=== PATIENT | male | born 1990 ===

== ENCOUNTER 2020-07-31 07:47 | Outpatient (REF) | payer BC, SELFPAY | END 2020-07-31 07:48 | disposition home or self-care (01) | LOC: HO.LAB 07:47 | PROVIDERS: Visit Provider Internal Medicine | DX: Z20.828 Contact with and (suspected) exposure to other viral communicable diseases (principal) | CPT/HCPCS: C9803; U0003 ==

== ENCOUNTER 2021-01-14 12:00 | Outpatient (RCR) | payer BC, SELFPAY | END 2021-01-24 12:54 | disposition other institution (70) | LOC: HO.PT 12:00 | PROVIDERS: PCP Nurse Practitioner Primary Care; Visit Provider Nurse Practitioner Primary Care | DX: M54.41 Lumbago with sciatica, right side (principal) | CPT/HCPCS: 97110; 97112; 97162 ==

== ENCOUNTER → 2023-06-27 08:25 | Outpatient (BNVA) | payer MEDICAID, SELFPAY | PROVIDERS: PCP Nurse Practitioner Primary Care; Visit Provider Physician Assistant Surgical ==

== ENCOUNTER → 2023-07-23 08:00 | Outpatient (REF) | payer OTHER, SELFPAY ==
--- NOTE | 2023-07-23 08:04 | CA_ITS ---
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 The calculated ejection fraction is 53% by biplane method. - There is severely increased left ventricular wall thickness. - Possible mild pulmonic stenosis based on gradients, but could also be related to increased stroke volume. Findings Procedure Information Contrast agent, definity, is being given per protocol without apparent complications. Left Ventricle Normal left ventricular cavity size. There is severely increased left ventricular wall thickness. The left ventricular systolic function is low normal. The calculated ejection fraction is 53% by biplane method. There is no evidence of regional wall motion abnormalities. Diastolic function is normal for age. Right Ventricle Normal right ventricular cavity size and systolic function. Atria The left atrium is mildly dilated. The right atrium is normal in size. Aortic Valve There is a normal trileaflet aortic valve. There is no aortic valve stenosis. There is no aortic valve regurgitation. Mitral Valve The mitral valve appears normal. There is no mitral valve regurgitation. There is no mitral valve stenosis. Pulmonic Valve There is mild stenosis. Peak PV gradient is calculated at 18 mmHg. Tricuspid Valve Normal tricuspid valve structure. There is trace tricuspid valve regurgitation. There is no evidence of pulmonary hypertension. Great Vessels The asc aorta is normal in size. Venous The inferior vena cava is normal in size and collapses greater than 50% with inspiration. Pericardium/Pleural There is no evidence of pericardial effusion. Prior Study Comparison No prior study available for comparison. Measurements 2D Linear Measurements IVSd: 1.67 0.6-0.9/0.6-1.0 cm LVIDd: 4.91 3.9-5.3/4.2-5.9 cm LVIDd Index: 1.75 2.4-3.2/2.2-3.1 cm/m2 LVIDs: 3.53 2.0-3.6 cm LVPWd: 1.61 0.7-1.1 cm LA Diam: 5.20 2.7-3.8/3.0-4.0 cm LAIDs Index: 1.85 1.5-2.3 cm/m2 LV Mass: 448.22 67-162/88-224 g LV Mass Index: 159.51 43-95/49-115 g/m2 LVOT Diam: 2.40 3.0+(-)1.3 cm 2D Systolic Function EF 4C: 52.60 >55% EF 2C: 57.20 >55% EF BiP: 53.30 >55% Mitral Valve MV Pk E: 1.09 MV PK A: 0.61 MV Decel Time: 216.00 E/A: 1.80 E'Lateral: 15.60 E'Medial: 9.79 E/E' Med: 11.10 E/E' Lat: 7.00 PHT: 63.00 MVA PHT: 3.49 Decel Charles: 5.06 Aortic Valve AoV Pk Ramiro: 2.40 AoV Mn Ramiro: 1.61 AoV VTI: 0.53 AoV Pk Grad: 23.00 Aov Mn Grad: 12.00 TO Cont.VTI: 2.65 LVOT LVOT Pk Ramiro: 1.28 LVOT Mn Ramiro: 0.93 LVOT VTI: 0.31 LVOT Pk Grad: 7.00 LVOT Mn Grad: 4.00 LVOT Diam: 2.40 LVOT Area: 4.52 Diastolic Function MV Pk E: 1.09 MV Pk A: 0.61 E/A: 1.80 E'Medial: 9.79 E/E' Med: 11.10 E' Laterial: 15.60 E/E' Lat: 7.00 Right Ventricle TAPSE (mm): 22.00 TVS' Ramiro: 10.80 Tricuspid Valve TR Pk Ramiro: 1.63 TR Pk Grad: 11.00 RA Press: 8.00 RVSP: 19.00 Great Vessels Aorta Sinus of Valsalva: 3.50 2.0-3.5 cm Ao Asc: 3.90 2.1-3.4 cm Pulmonary Valve PV Pk Ramiro: 2.10 PV Min Ramiro: 1.34 Peak PV Grad: 18.00 PV Mn Grad: 9.00 Shunting QP:QS: 0.70 Updated in Other Vendor System with Status of Final Santana Up MD electronically signed on 07/23/2023 11:04:56 AM with status of Final
== END ==
LOC: HO.CARD 08:00
PROVIDERS: PCP Nurse Practitioner Primary Care; Visit Provider Nurse Practitioner Primary Care
DX: R01.1 Cardiac murmur, unspecified (principal); I10 Essential (primary) hypertension
CPT/HCPCS: 93306; Q9957

== ENCOUNTER → 2023-07-23 08:04 | Outpatient (BNV) | payer OTHER, SELFPAY | PROVIDERS: PCP Nurse Practitioner Primary Care; Visit Provider Internal Medicine | DX: I37.0 Nonrheumatic pulmonary valve stenosis (principal) | CPT/HCPCS: 93306 ==

== ENCOUNTER 2023-07-30 09:01 | Outpatient (AMB) | payer OTHER, SELFPAY ==
--- NOTE | 2023-07-30 09:14 | A.OFFVIS_ITS ---
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 He heard about our program from his PCP. His goal is to lose weight and achieve a healthy lifestyle as well as to improve, if not resolve, obesity related medical conditions, including HTN. He reports first being concerned about his weight over the last 2 years, highest weight to date was 398. Initial weight upon presentation on 06/27/23 was 373.8 pounds with a BMI 49.3. Current weight is 373 pounds with a BMI of 49.2. He has tried multiple methods of weight loss including fad diets and exercise without permanent results. He lives with girlfriend and son. 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 Dinner is at 2 am. Breakfast: 920 pm 1/2 portion faroese food AM snack: 10 pm-2 am jolly jerrellcher candy, 20 pieces Lunch: 2 am other half faroese food PM snack: 2 am-6 am more candy Dinner: coffee w 4 cream and 5 sugar Other snacks: candy Liquids: 160 oz water, 1 can pepsi daily, 1 c OJ 3 x per week Alcohol/marijuana/tobacco intake: 24 beers on sunday and 24 sunday, [place] whiskey 1 bottle on sunday and 1 bottle on sunday, no cannabis, no tobacco Exercise: [employer], treadmill/elliptical (No complaints of CP w activity), 3 x per week, 45 minutes or 800 calories GERD score: 0 CLEMENTE score: 5 ESS score: 10 QOL score: 75 [facility] Surgical History (Updated 07/30/23 @ 10:12 by JOSUE Rider) H/O heart surgery Family History Mother Diabetes Hypertension Thyroid cancer Father No problems noted. Daughter Asthma Son No problems noted. Son No problems noted. 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 Physical Exam Const General: cooperative, healthy appearing and no acute distress Orientation/consciousness: patient oriented x3 HEENT Head: Yes normal to inspection Ears: hearing grossly normal bilaterally General nose exam: Normal external nose present Face and sinus: Yes normal facial exam Eyes General: appearance normal, both eyes and all related structures Resp Effort & Inspection: normal respiratory effort Auscultation: clear to auscultation bilaterally Cardio Rate: regular rate Rhythm: regular rhythm Heart sounds: S1 normal heart sound present and S2 normal heart sound present GI Inspection: Yes normal to inspection, No distended and Yes obesity Palpation (GI): Soft to palpation, nontender and no guarding Auscultation: normal bowel sounds Skin General skin exam: no rashes or lesions noted Neuro General: patient oriented x3 Extrem General: No edema Psych Appearance: grossly normal Mental Status: mental status grossly normal Speech and movement: Normal speech and movement present Affect: normal affect Attitude: cooperative Assessment & Plan Assessment & Plan (1) Morbid obesity: Code(s): E66.01 - Morbid (severe) obesity due to excess calories Plan: This is a?32 yo male who will start our SWL program to prepare for bariatric surgery.? Blood work, h pylori , CXR, ECG, Abd US and UGI have been ordered. He is being scheduled for RD and BH initial consultations. He will start SWL classes and watch the first three videos before his next appointment. ? Adequate sleep of 7-8 hours per night discussed, awakening at 8 pm and going to bed around noon ? Purchase body composition analyzer scale (Leonieo recommended) and check weight weekly. The best time to do this is first thing in the morning after going to the bathroom. 1. Nutritional counseling: Be sure to careful read the number of scoops per shake Meal at 9pm (14 forks of protein and 14 forks of salad/vegetables). Meal to include lean meat (beef, fish, pork, turkey, chicken), cooked vegetables or a salad with olive oil and/or fruits (berries, pears, apples, kiwi). Avoid salt, breads, potatoes, rice, pasta, desserts. 2 Celebrate Rebuild shakes ([facility] Carbonated Content, [employer], [employer] (2 scoop in 20 oz unsweetened almond milk) First shake at Midnight-2am, Second shake at 3am-5am 2 protein bars (Descomplicate bars at [facility] [employer], [employer], [employer] First bar at 6am-8am. Second bar at 9am=11am Try to drink 5-6 bottles of water daily and avoid soda, candy and all alcohol. ?2. Each shake would be drunk slowly, like coffee in a period of 2 hours. ?3. Cut each bar in 4 pieces and eat each piece in 30 min ?to make each bar last 2 hours. ?4. I emphasized the importance of measuring accurately the food portion and measure it carefully when serving the food on the plate ?5. The meal portions include 14 full-size forks of meat and 14 full-size forks of salad. You always eat the meat portion but you can replace up to half of the forks of salad/vegetables with rice, potatoes or pasta, or a fruit ?if you like. The less you do it the better weight loss will be. ?6. One full-size fork is what can be scooped on the fork without falling aside and not what can be bit with the fork. Use regular forks like those you find in a typical restaurant. ?7.? Please send me weight measurements as soon as possible and then once a week. Always include your diet and exercise plan. Alternatively come weekly at the office for weight checks and send me the measurements. ?8. Exercise counseling: Begin by watching a stretching for beginners video. Start slowly and begin to stretch your muscles. You should do this before and after each exercise session to prevent injury. Please continue to go to [employer] gym near your home. Ask the medical center manager or one of the trainers how to use the machines if you are unfamiliar with them. Start elliptical with a resistance of 2. Increase resistance by 1 every 3 min to your most comfortable resistance with a max resistance of 8. Reduce the resistance by 1 every 3 minutes back down to 2 and repeat cycles for 300 calories. Alternatively, start treadmill with a speed of 3.0 and incline of 0, increasing incline by 1 every 3 minutes to the highest comfortable level (max 6 for now) then decrease in the same fashion. Repeat process to a goal of 300 calories. Goal of 2000 calories burned or more weekly. You may also consider use of the stationary bike. The easiest would be to chose the fat-burn or interval training program on the machine and do this until you reach the 300 calorie goal. Alternatively, you can manually adjust the resistance in a similar fashion as mentioned above, (resistance of 2-8 with a goal speed of 12 mph). Tracking calories is essential. 9. Alternatively start walking outside daily, tracking calories with a goal of 300 calories per day, daily. You can download the jono [employer] which can track your time, distance and calories while walking outside. You press start in the jono when you start and then stop when you are finished. 10.? It is important to communicate by text weekly with your weight and if you are having any problems with the plans. 11. Please get labs, EKG and chest X-Ray within 1 week. 12. Discussed and answered all questions regarding?obtained consent to participate in the [facility]?Registry. 13. Please follow the diet plan exactly, without any change. If you do not like something about the plan or you feel hungry, you need to communicate with me so I can help you revise the plan. You should not change the plan yourself. Text me at [phone] 14. Goal is to lose at least 12 pounds in the first month 15. Goal is to lose 10% of your weight before surgery, which is about 37 lbs. Ultimate weight goal: 336 lbs or more before surgery Patient is morbidly obese and is not considered stable at this time.?I spent a total of 70 minutes reviewing/updating records, examining the patient and counseling the patient on weight management as detailed above. Orders: Orders Insulin Today E66.01 - Morbid (severe) obesity due to excess calories, I10 - Essential (primary) hypertension Lipid Panel Today E66.01 - Morbid (severe) obesity due to excess calories, I10 - Essential (primary) hypertension Vitamin B12 and Folate Today E66.01 - Morbid (severe) obesity due to excess calories, I10 - Essential (primary) hypertension Comprehensive Met. Panel Today E66.01 - Morbid (severe) obesity due to excess calories, I10 - Essential (primary) hypertension Vitamin A Today E66.01 - Morbid (severe) obesity due to excess calories, I10 - Essential (primary) hypertension C Reactive Protein Today E66.01 - Morbid (severe) obesity due to excess calories, I10 - Essential (primary) hypertension Ferritin Today E66.01 - Morbid (severe) obesity due to excess calories, I10 - Essential (primary) hypertension PTHI Today E66.01 - Morbid (severe) obesity due to excess calories, I10 - Essential (primary) hypertension TSH reflex Free T4 Today E66.01 - Morbid (severe) obesity due to excess calories, I10 - Essential (primary) hypertension H Pylori Breath Test Today E66.01 - Morbid (severe) obesity due to excess calories, I10 - Essential (primary) hypertension Vitamin D 25-OH Total Today E66.01 - Morbid (severe) obesity due to excess calories, I10 - Essential (primary) hypertension US abdomen comp w elastography Today E66.01 - Morbid (severe) obesity due to excess calories, I10 - Essential (primary) hypertension IRON PROFILE Today E66.01 - Morbid (severe) obesity due to excess calories, I10 - Essential (primary) hypertension Complete Blood Count Auto Diff Today E66.01 - Morbid (severe) obesity due to excess calories, I10 - Essential (primary) hypertension Zinc Today E66.01 - Morbid (severe) obesity due to excess calories, I10 - Essential (primary) hypertension Vitamin B1 Today E66.01 - Morbid (severe) obesity due to excess calories, I10 - Essential (primary) hypertension Hemoglobin A1c Today E66.01 - Morbid (severe) obesity due to excess calories, I10 - Essential (primary) hypertension XR chest 2V Today E66.01 - Morbid (severe) obesity due to excess calories, I10 - Essential (primary) hypertension ECG 12 lead EKG Today E66.01 - Morbid (severe) obesity due to excess calories, I10 - Essential (primary) hypertension FL upper GI w air Today E66.01 - Morbid (severe) obesity due to excess calories, I10 - Essential (primary) hypertension Referrals Behavioral Health Referral E66.01 - Morbid (severe) obesity due to excess calories, I10 - Essential (primary) hypertension Nutrition/Dietitian Referral E66.01 - Morbid (severe) obesity due to excess calories, I10 - Essential (primary) hypertension Coding Level of Care Code New Pt Level 5 (90059) Diagnoses Morbid obesity E66.01 Time Spent (min) 70
[2023-07-30 09:20] VITALS: BP 190/93; PULSE 62; TEMP 36.1; O2SAT 96; BMI 49.2
== END 2023-07-30 10:32 | disposition home or self-care (01) ==
PROVIDERS: PCP Nurse Practitioner Primary Care; Visit Provider Physician Assistant Surgical
DX: E66.01 Morbid (severe) obesity due to excess calories (principal); Z68.42 Body mass index [BMI] 45.0-49.9, adult
CPT/HCPCS: 99205

== ENCOUNTER → 2023-07-30 09:01 | Outpatient (BNVA) | payer SELFPAY | PROVIDERS: PCP Nurse Practitioner Primary Care; Visit Provider Physician Assistant Surgical ==

== ENCOUNTER 2023-08-13 07:36 | Outpatient (REF) | payer OTHER, SELFPAY ==
--- NOTE | ~2023-08-13 | XR_ITS ---
EXAMINATION: XR CHEST CLINICAL INFORMATION: Morbid obesity COMPARISON: None available. TECHNIQUE: 2 views of the chest were obtained. FINDINGS: No significant abnormality is noted involving the heart, lungs, mediastinum, bony thorax or soft tissues. XR/XR chest 2V IMPRESSION: Unremarkable examination.
--- NOTE | 2023-08-13 07:44 | ECG_ITS ---
Test Reason : obesity Blood Pressure : / mmHG Vent. Rate : 044 BPM Atrial Rate : 044 BPM P-R Int : 192 ms QRS Dur : 106 ms QT Int : 444 ms P-R-T Axes : 052 004 037 degrees QTc Int : 379 ms Marked sinus bradycardia Minimal voltage criteria for LVH, may be normal variant ( R in aVL ) Abnormal ECG When compared with ECG of 30-APR-2007 14:42, No significant changes seen Referred By: Marquez Lopez Electronically Signed By:YULIANA WILLIAMSON
[2023-08-13 07:50] LABS: MANUAL DIFF FLAG NO
[2023-08-13 08:39] LABS: Basophils Absolute Auto 0.1 X10*3/uL (0.0-0.2); Basophils Percent Auto 0.7 % (0-2); Eosinophils Absolute Auto 0.1 X10*3/uL (0.0-0.4); Eosinophils Percent Auto 0.9 % (0-4); Estimated Average Glucose 114 mg/dL; Hematocrit 49.2 % (42.0-52.0); Hemoglobin 15.4 g/dl (14.0-18.0); Hemoglobin A1C 149.2194 umol/L; Hemoglobin A1c % 5.6 % (<6.0); Imm Gran Abs Auto 0.03 X10*3/uL (0.00-0.03); Imm Gran Pct Auto 0.4 % (0.0-0.4); Lymphocytes Absolute Auto 2.2 X10*3/uL (1.2-4.9); Lymphocytes Percent Auto 29.4 % (20-40); Mean Corpuscular HGB Conc 31.3 g/dl (31.0-36.0); Mean Corpuscular Hemoglobin 25.2 pg (27.0-33.0); Mean Corpuscular Volume 80.7 fL (80.0-98.0); Mean Platelet Volume 11.2 fL (9.4-12.4); Monocytes Absolute Auto 0.5 X10*3/uL (0.1-1.2); Neutrophils Absolute Auto 4.7 x10*3/uL (2.0-8.3); Neutrophils Percent Auto 62.6 % (45-73); Platelet Count 255 X10*3/uL (160-400); Red Cell Distribution Width 13.8 % (11.0-16.0); White Blood Count 7.5 X10*3/uL (4.8-10.8)
[2023-08-13 09:05] LABS: Alanine Aminotransferase 41 U/L (0-40); Albumin Level 4.4 g/dL (3.5-5.0); Alkaline Phosphatase 110 U/L (39-117); Anion Gap 11 (12-20); Aspartate Amino Transferase 26 U/L (5-37); Bilirubin Total 0.6 mg/dL (0.0-1.0); Blood Urea Nitrogen 12 mg/dL (9-16); C Reactive Protein 0.85 mg/dL (< or = 0.50); Calcium 9.3 mg/dL (8.4-10.2); Carbon Dioxide 28 mmol/L (22-29); Chloride 106 mmol/L (96-108); Cholesterol 168 mg/dL (<200); Estimated Glomerular Filt Rate > 60; Glucose Random 92 mg/dL (60-115); HDL Cholesterol 32 mg/dL (>40); Iron 89 mcg/dL (45-160); LDL Cholesterol Calculated 121 mg/dL (<100); Percent Iron Saturation 28 % (15-50); Potassium 4.2 mmol/L (3.3-5.1); Sodium 141 mmol/L (135-145); Total Iron Binding Capacity 318 mcg/dL (228-428); Total Protein 7.2 g/dL (6.5-8.0); Triglycerides 75 mg/dL (<150); Unsaturated Iron Binding 229 ug/dL
[2023-08-13 09:27] LABS: Ferritin 263 ng/mL (20-250); TSH reflex Free T4 0.26 uIU/mL (0.32-4.0); Vitamin D 25-OH Total 15.1 ng/mL (>30)
[2023-08-13 09:32] LABS: Folate 13.1 ng/mL (> or = 4.0); Vitamin B12 1120 pg/mL (200-900)
[2023-08-13 10:10] LABS: Free T4 (Free Thyroxine) 1.09 ng/dL (0.71-1.85); Insulin 19 uU/mL (2-29)
[2023-08-15 15:31] LABS: H Pylori Breath Test Positive (Negative)
[2023-08-15 17:40] LABS: Zinc 86 mcg/dL (60-130)
[2023-08-17 04:02] LABS: Vitamin A 42 mcg/dL (38-98)
[2023-08-17 16:48] LABS: Vitamin B1 10 nmol/L (8-30)
== END 2023-08-13 07:37 | disposition home or self-care (01) ==
LOC: HO.LAB 07:36
PROVIDERS: PCP Nurse Practitioner Primary Care; Visit Provider Physician Assistant Surgical
DX: E66.01 Morbid (severe) obesity due to excess calories (principal); I10 Essential (primary) hypertension
CPT/HCPCS: 36415; 71046; 80053; 80061; 82306; 82607; 82728; 82746; 83013; 83036; 83525; 83540; 84425; 84439; 84443; 84590; 84630; 85025; 86140; 93005; 99211

== ENCOUNTER → 2023-08-13 07:44 | Outpatient (BNV) | payer OTHER, SELFPAY | PROVIDERS: PCP Nurse Practitioner Primary Care; Visit Provider Internal Medicine | DX: R00.1 Bradycardia, unspecified (principal); R94.31 Abnormal electrocardiogram [ECG] [EKG] | CPT/HCPCS: 93010 ==

== ENCOUNTER 2023-08-22 13:16 | Outpatient (AMB) | payer OTHER, SELFPAY ==
--- NOTE | 2023-08-22 13:00 | MHC.OFFVISWM ---
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 They were last seen in the office on 07/30/23, recorded weight at that time was 373 pounds, with a BMI of 49.2. Today's weight is 357.8 pounds and BMI is 45.9. There has been a weight loss of 16 pounds since initiating the surgical weight loss program on 07/30/23 with a total body weight loss of 4.2 %. Pre op work up completed as follows: SWL classes:? []/8 appts: [] ? ? RD appts: [] Labs: 08/13/23-low D, TSH 0.26 H. pylori: 08/13/23-pos CXR: 08/13/23-nad [id number]/23-lyssa ABD U/S: 09/04/23 UGI: 09/12/23 The patient reports he is following the meal plan but waking up at 2 pm, sleep at 7am and waking at 2 pm now. The patient does have a body composition scale. They also have been communicating weekly. States that he would like to switch from almond milk to either water or possibly soy or coconut milk. He is going to try the other liquid options and get back to me. 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 He states that he will get them today on his way to the gym. Current meal plan includes: Meal at 4pm (14 forks of protein and 14 forks of salad/vegetables). 2 Celebrate Rebuild shakes ([facility] Auto I.D., [place], [employer]), (2 scoop in 20 oz unsweetened almond milk) First shake at Midnight-2am, Second shake at 3am-5am 2 protein bars (Celebrate bars at [facility] [employer], [employer]) First bar at 6pm-8pm. Second bar at 8pm-10pm Drinking 80 oz of water, no soda or juice Current exercise plan includes: 550 saranya per day 6 days per week, elliptical at the gym [facility] Surgical History (Updated 07/30/23 @ 10:12 by JOSUE Rider) H/O heart surgery Family History Mother Diabetes Hypertension Thyroid cancer Father No problems noted. Daughter Asthma Son No problems noted. Son No problems noted. 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 I told him to text me tonight as he works overnight with what he would like to do and I will give him a new meal plan tomorrow Continue current exercise regimen (2) H. pylori infection: Code(s): A04.8 - Other specified bacterial intestinal infections Plan: Encouraged to get his antibiotics, he states he will pick them up today. Will have him return to the office in approximately 4 weeks which well out 2 weeks of the treatment and 2 weeks post treatment to then recheck for clearance Telehealth Telehealth Location of provider rendering services: practice address Location of patient: address on file Patient Identification confirmed using: Name, : Yes Telehealth method: voice only Patient verbally consented to treatment: Yes Patient verbally consented to billing insurance company: Yes Patient informed of any privacy concerns related to visit: Yes Minutes spent on Phone/Video with Pt.: 15 Coding Level of Care Code Tele Est Pt Level 3 (78337) Diagnoses Morbid obesity E66.01 H. pylori infection A04.8 Time Spent (min) 20
[2023-08-22 13:28] VITALS: BMI 47.2
== END 2023-08-22 13:31 | disposition home or self-care (01) ==
LOC: HO.HBS 13:16
PROVIDERS: PCP Nurse Practitioner Primary Care; Visit Provider Physician Assistant Surgical
DX: E66.01 Morbid (severe) obesity due to excess calories (principal); A04.8 Other specified bacterial intestinal infections
CPT/HCPCS: 99213

== ENCOUNTER → 2023-08-22 13:16 | Outpatient (BNVA) | payer OTHER, SELFPAY | PROVIDERS: PCP Nurse Practitioner Primary Care; Visit Provider Physician Assistant Surgical ==

== ENCOUNTER 2023-08-27 13:42 | Outpatient (AMB) | payer OTHER, SELFPAY ==
--- NOTE | 2023-08-27 13:36 | MHC.AMNUTRGE ---
Intake Intake Visit Reasons: VIDEO Initial Nutrition SWL Retail Leasing Agent Required: No Allergies No Known Allergies Allergy (Verified 07/30/23 09:17) HPI Nutrition Presentation Reason for consult elevated BMI Diet Assmnt Details Pt states prior to coming to program was drinking a lot of alcohol a Liter of Sulphur every 3 days?; However pt reported to Marquez Lopez ; 24 beers on sunday and 24 sunday, [place] whiskey 1 bottle on sunday and 1 bottle on sunday. Pt stated he did not have any withdraw symptoms from stopping. Pt states he is following the nutrition plan from PA. he states he has no questions or concerns today. Going to the gym 6 days per week. doing elliptical and some weight training. Dietary counseling reduction Who buys your food spouse Who prepares/cooks your food spouse Meal frequency regular: breakfast (9pm rice, beans, pork chops ), lunch (2am ), dinner (6am ) and snacks (candy ) Lifestyle Food frequency Soda: daily, Coffee: daily and Alcohol: daily ( a lot a Liter of Sulphur every 3 days ) Diagnosis Nutrition problem #1 overweight/obesity As related to (etiology) #1 excess energy intake and physical inactivity As evidenced by (sign/symptom) #1 high BMI Learning/Education Readiness to learn fair Stages of change preparation Most Recent Diabetes Results: Cholesterol 168 mg/dL (<200) 08/13/23 HDL Cholesterol 32 mg/dL (>40) L 08/13/23 Triglycerides 75 mg/dL (<150) 08/13/23 Creatinine 0.86 mg/dL (0.5-1.4) 08/13/23 Blood Urea Nitrogen 12 mg/dL (9-16) 08/13/23 Sodium 141 mmol/L (135-145) 08/13/23 Potassium 4.2 mmol/L (3.3-5.1) 08/13/23 Chloride 106 mmol/L (96-108) 08/13/23 Carbon Dioxide 28 mmol/L (22-29) 08/13/23 Calcium 9.3 mg/dL (8.4-10.2) 08/13/23 AST 26 U/L (5-37) 08/13/23 ALT 41 U/L (0-40) H 08/13/23 Total Protein 7.2 g/dL (6.5-8.0) 08/13/23 Albumin 4.4 g/dL (3.5-5.0) 08/13/23 PFSH Surgical History (Updated 07/30/23 @ 10:12 by JOSUE Rider) H/O heart surgery Family History Mother Diabetes Hypertension Thyroid cancer Father No problems noted. Daughter Asthma Son No problems noted. Son No problems noted. 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 continue all follow ups as scheduled currently Telehealth Telehealth Location of provider rendering services: practice address Location of patient: other (in his car, [facility], not driving) Patient Identification confirmed using: Name, : Yes Telehealth method: video Patient verbally consented to treatment: Yes Patient verbally consented to billing insurance company: Yes Patient informed of any privacy concerns related to visit: Yes Minutes spent on Phone/Video with Pt.: 15 Coding Level of Care Code Nutr Indiv Intake (87232) Diagnoses Morbid obesity E66.01 Time Spent (min) 15
== END 2023-08-27 13:50 | disposition home or self-care (01) ==
LOC: HO.HBS 13:42
PROVIDERS: PCP Nurse Practitioner Primary Care; Visit Provider Dietitian, Registered
DX: E66.01 Morbid (severe) obesity due to excess calories (principal)

== ENCOUNTER → 2023-08-27 13:42 | Outpatient (BNVA) | payer OTHER, SELFPAY | PROVIDERS: PCP Nurse Practitioner Primary Care; Visit Provider Dietitian, Registered | DX: E66.01 Morbid (severe) obesity due to excess calories (principal); Z71.3 Dietary counseling and surveillance | CPT/HCPCS: 97802 ==

== ENCOUNTER 2023-09-12 10:16 | Outpatient (REF) | payer OTHER, SELFPAY | END 2023-09-12 10:17 | disposition home or self-care (01) | LOC: HO.XRAY 10:16 | PROVIDERS: PCP Nurse Practitioner Primary Care; Visit Provider Physician Assistant Surgical | DX: E66.01 Morbid (severe) obesity due to excess calories (principal); I10 Essential (primary) hypertension | CPT/HCPCS: 74246 ==

== ENCOUNTER → 2023-09-12 10:18 | Outpatient (BNV) | payer OTHER, SELFPAY | PROVIDERS: PCP Nurse Practitioner Primary Care; Visit Provider Radiology Diagnostic Radiology | DX: Z01.818 Encounter for other preprocedural examination (principal); E66.01 Morbid (severe) obesity due to excess calories | CPT/HCPCS: 74246 ==

== ENCOUNTER 2023-09-21 | Outpatient (REF) | payer OTHER, SELFPAY ==
[2023-09-28 12:09] LABS: H Pylori Breath Test Negative (Negative)
== END 2023-09-21 00:01 | disposition home or self-care (01) ==
LOC: HO.LNP
PROVIDERS: Visit Provider Physician Assistant Surgical
DX: Z01.818 Encounter for other preprocedural examination (principal)
CPT/HCPCS: 83013

== ENCOUNTER 2023-09-21 08:21 | Outpatient (AMB) | payer OTHER, SELFPAY ==
--- NOTE | 2023-09-21 08:24 | A.OFFVIS_ITS ---
Intake VS Expanded 09/21/23 08:30 BP 159/76 H Blood Pressure Location Rt brachial Blood Pressure Position Sitting Pulse 51 Pulse Source Pulse Oximeter Temp 96.7 F L Temperature Source Temporal Artery Scan Pulse Oximetry 96 Oxygen Delivery Method Room Air Height 6 ft 1 in Weight 344 lb BMI 45.4 Body Fat % 40.0 Body Fat Mass 137.6 Fat Free Mass 206.4 Visceral Fat Rating 24.0 Body Water % 44.7 Body Water Mass 153.6 Muscle Mass/Score 196.4 Basal Metabolic Rate/Score 2,969 Intake Visit Reasons: (OV) F/U SWL + H.Pylori Allergies No Known Allergies Allergy (Verified 09/21/23 08:28) HPI HPI Comments History of Present Illness Details The patient is a pleasant 33 year old male who returns to the clinic for pre-operative surgical weight loss management. They were last seen in the office on 08/22/23, recorded weight at that time was 357.6 pounds, with a BMI of 47.2. Today's weight is 344 pounds and BMI is 45.4. There has been a weight l oss of 29 pounds since initiating the surgical weight loss program on 06/27/23 with a total body weight loss of 7.9 %. Pre op work up completed as follows: SWL classes:? []/8 BH appts: 10/01/23 ? ? RD appts: needs f/u Labs: 08/13/23-low D, TSH 0.26 H. pylori: 08/13/23-pos, re-test 09/21/23 CXR: 08/13/23-nad [id number]-lyssa ABD U/S: 10/05/23 UGI: 09/12/23-sm HH The patient reports he is following the meal plan except not doing the protein bars. He would like to avoid the bars altogether. He is using [employer] for the liquid. He will be back to his regular schedule this coming week. He also completed his antibiotics for H pylori and this will be retested today. Current meal plan includes: Meal at 4pm (14 forks of protein and 14 forks of salad/vegetables). 2 Celebrate Rebuild shakes ([employer] [facility] [employer], [address], [employer]), (2 scoop in 20 oz unsweetened almond milk) First shake at Midnight-2am, Second shake at 3am-5am 2 protein bars (Celebrate bars at [facility] [employer] [facility], [address], [employer]) First bar at 6pm-8pm. Second bar at 8pm-10pm Drinking 48 oz of water, no soda or juice No etoh since June. Current exercise plan includes: none this past week due to increased work hours. 500-650 saranya per day, 45 min, 6 days per week, elliptical at the gym [facility] Surgical History H/O heart surgery Family History Mother Diabetes Hypertension Thyroid cancer Father No problems noted. Daughter Asthma Son No problems noted. Son No problems noted. 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 Review of Systems Const All systems reviewed & are unremarkable except as noted in HPI and below Physical Exam Vital Signs: Last Vital Signs Temp 96.7 F L 09/21/23 08:30 Pulse 51 09/21/23 08:30 BP 159/76 H 09/21/23 08:30 Pulse Ox 96 09/21/23 08:30 Oxygen Delivery Method Room Air 09/21/23 08:30 BMI result Body Mass Index 45.4 Const General: healthy appearing and no acute distress Resp Effort & Inspection: normal respiratory effort Auscultation: clear to auscultation bilaterally Cardio Rate: regular rate Rhythm: regular rhythm GI Auscultation: normal bowel sounds Extrem General: Yes normal to inspection Assessment & Plan Assessment & Plan (1) Morbid obesity: Code(s): E66.01 - Morbid (severe) obesity due to excess calories Plan: The patient is making great progress. He has lost 29 lb to date. He states that he would like to change to using only shakes. New meal plan: Meal at 16:00 with 13 forks of protein and 13 for S of vegetables. Shakes using celebrate rebuild, 18:00 to 20:00 1.5 scoops in 15 oz of milk. 21:00 to 23:00 2 scoops in 16 oz Midnight to 02:00 to scoop in 16 oz 03:00 to 05:00 1.5 screw been 15 oz 06:00 to 08:00 1.5 scoop in 15 oz. He states that he will contact me with any concerns regarding this schedule and we will make any adjustments as needed. He will return to the gym next week as he will resume his regular schedule. We will have him return to the office in approximately 3 weeks. (2) H. pylori infection: Code(s): A04.8 - Other specified bacterial intestinal infections Plan: Retested this morning Orders: Orders H Pylori Breath Test Today Z01.818 - Encounter for other preprocedural examination Coding Level of Care Code Est Pt Level 4 (79500) Diagnoses Morbid obesity E66.01 H. pylori infection A04.8 Time Spent (min) 35
[2023-09-21 08:30] VITALS: BP 159/76; PULSE 51; TEMP 35.9; O2SAT 96; BMI 45.4
== END 2023-09-21 09:01 | disposition home or self-care (01) ==
PROVIDERS: PCP Nurse Practitioner Primary Care; Visit Provider Physician Assistant Surgical
DX: E66.01 Morbid (severe) obesity due to excess calories (principal); Z68.42 Body mass index [BMI] 45.0-49.9, adult; A04.8 Other specified bacterial intestinal infections
CPT/HCPCS: 99213

== ENCOUNTER → 2023-09-21 08:21 | Outpatient (BNVA) | payer OTHER, SELFPAY | PROVIDERS: PCP Nurse Practitioner Primary Care; Visit Provider Physician Assistant Surgical | DX: E66.01 Morbid (severe) obesity due to excess calories (principal); Z68.42 Body mass index [BMI] 45.0-49.9, adult; A04.8 Other specified bacterial intestinal infections | CPT/HCPCS: 99211 ==

== ENCOUNTER 2023-10-01 15:53 | Outpatient (AMB) | payer OTHER, SELFPAY ==
--- NOTE | 2023-10-01 15:25 | MHC.WMTHER ---
Intake Intake Visit Reasons: VIDEO BH Intake Allergies No Known Allergies Allergy (Verified 09/21/23 08:28) [facility] Surgical History H/O heart surgery Family History Mother Diabetes Hypertension Thyroid cancer Father No problems noted. Daughter Asthma Son No problems noted. Son No problems noted. 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 He denied a history of any mental health issues but reported that he used to drink a bottle every two days of hard liquor . He stated that he stopped drinking the day of his first appointment in this program and drank for ten years. He denied every being in treatment for alcohol abuse. Presenting Concerns Referral Source provider Reason for referral weight loss surgery evaluation Precipitating Event obesity Living Situation Current Living Situation Rent At risk of losing current housing? No Satisfied with current living situation? Yes Comments Patent reported that he rents a room from his friend. Food/Weight/Diet Expectations of change weight loss and maintenance History/Relationship with food I love food , he reported eating [place]ish food almost daily, fried foods, take out and fast food frequently, soda 3-4 cans a day, he would eat late at night due to working third shift, he was also eating large quantities of food even when he was not hungry. History/Relationship with weight Pt stated that he was around 400lb at his heaviest, lost 30lbs prior to starting to the program when he started to cut back on drinking History/Relationship with dieting self diets with healthy eating and exercise Binge Eating Do you frequently eat large amounts of food in short periods of time, not feeling physically hungry? Yes Do you feel out of control when you eat a large amount of food in a short period of time? Yes Do you eat large amounts of food rapidly and typically alone? Yes Night Eating Do you wake up at least once during the night to eat? No If you wake up in the night, do you find that it is necessary to eat something in order to fall back asleep? No Do you have little or no appetite in the morning and feel very hungry in the evening, often overeating between dinner and when you go to bed? Yes Social History Family history and relationship Pt reported that he was sent to live with his aunt when he was 13 in [place] from [place] by his parents due to bad behaviors in school. He reported that he stayed there for 6 years. When he moved there he started to gain weight. Both parents are alcoholics. He reported having a good childhood, he has 4 siblings. Pt has an 18 year old daughter, 14 year old son, and 1.5 year old baby. Parental/Familial hvac sheet metal installer obligations three children Developmental history and status none known Social support girlfriend, daughter Cultural/Ethnic information Legal Involvement and History Current or historical involvement with the legal system? none Education Highest grade completed high school Preferred learning style Auditory, Verbal, Written, Learn by doing and Visual Currently enrolled in educational program? No Interested in further educational program? 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 None Service Service? No Mental Health and Addiction Treatment Current/Past substance abuse? Yes Comments recent hx of alcohol abuse Current/Past addictive behavior concerns? Yes Medical and Physical Health Summary Physical exam in the last year? Yes Pain Screening Current pain? No Pain in the last few months? No Medications Is the patient compliant with medications? Yes Does the patient have Ramírez Guardian in place? Not applicable Does the patient use complimentary health approaches? No Trauma/Abuse History History of trauma? No Questionnaires PHQ-9 Over the last 2 weeks, how often have you been bothered by any of the following problems? 1. Little interest or pleasure in doing things: several days 2. Feeling down, depressed, or hopeless: several days 3. Trouble falling or staying asleep, or sleeping too much: more than half the days 4. Feeling tired or having little energy: several days 5. Poor appetite or overeating: not at all 6. Feeling bad about yourself - or that you are a failure or have let yourself or your family down: several days 7. Trouble concentrating on things, such as reading the newspaper or watching television: not at all 8. Moving or speaking so slowly that other people could have noticed. Or the opposite - being so fidgety or restless that you have been moving around a lot more than usual: not at all 9. Thoughts that you would be better off or of hurting yourself in some way: not at all Total score: 6 Source: Developed by Drs. Miguel Valdez, Eva Vásquez, Vega Herman and colleagues, with an educational ivette from [employer]. Binge Eating Scale Group 1 A. I don't feel self-conscious about my wt. or body size when I'm with others. B. I feel concerned about how I look to others, but it normally does not make me fell disappointed with myself C. I do get self-conscious about my appearance and wt. which makes me feel disappointed in myself. D. I feel very self-conscious about my wt. and frequently I feel intense shame and disgust for myself. I try to avoid social contacts because of my self-consciousness. Response Group 1: C Group 2 A. I don't have any difficulty eating slowly in the proper manner. B. Although I seem to gobble down foods, I don't end up feeling stuffed because of eating to much. C. At times, I tend to eat quickly and then, I feel uncomfortably full afterwards. D. I have the habit of bolting down my food, without really chewing it. When this happens I usually feel uncomfortably stuffed because I've eaten to much. Response Group 2: C Group 3 A. I feel capable to control my eating urges when I want to. B. I feel like I have failed to control my eating more than the average person. C. I feel utterly helpless when it comes to feeling in control of my eating urges. D. Because I feel so helpless about controlling my eating I have become very desperate about trying to get control. Response Group 3: B Group 4 A. I don't have the habit of eating when I'm bored. B. I sometimes eat when I'm bored, but often I'm able to get busy and get my mind off food. C. I have a regular habit of eating when I'm bored, but occasionally, I can use some other activity to get my mind off eating. D. I have a strong habit of eating when I'm bored. Nothing seems to help me breath the habit. Response Group 4: B Group 5 A. I'm usually physically hungry when I eat something. B. Occasionally, I eat something on impulse even though I really am not hungry. C. I have the regular habit of eating foods, that I might not really enjoy, to satisfy a hungry feeling even though physically, I don't need the food. D. Although I'm not physically hungry, I get a hungry feeling in my mouth that only seems to be satisfied when I eat a food, like sandwich, that fills my mouth. Sometimes, when I eat the food to satisfy my mouth hunger, I then spit the food out so I won't gain weight. Response Group 5: B Group 6 A. I don't feel any guilt or self-hate after I overeat. B. After I overeat, occasionally I feel guilt or self-hate. C. Almost all the time I experience strong guilt or self-hate after I overeat. Response Group 6: B Group 7 A. I don't lose total control of my eating when dieting even after periods when I overeat. B. Sometimes when I eat a forbidden food on a diet, I feel like I blew it and eat even more. C. Frequently, I have the habit of saying to myself, I've blown it now, why not go all the way, when I overeat on a diet. When that happens I eat more. D. I have a regular habit of starting a strict diets for myself but I break the diets by going on an eating binge. My life seems to be either a feast or famine. Response Group 7: D Group 8 A. I rarely eat so much food that I feel uncomfortably stuffed afterwards. B. Usually about once a month, I each such a quantity of food, I end up feeling very stuffed. C. I have regular periods during the month when I eat large amounts of food, either at mealtime or at snacks. D. I eat so much food that I regularly feel quite uncomfortable after eating and sometimes a bit nauseous. Response Group 8: C Group 9 A. My level of calorie intake does not go up very high or go down very low on a regular basis. B. Sometimes after I overeat, I will try to reduce my caloric intake to almost nothing to compensate for the excess calories I've eaten. C. I have a regular habit of overeating during the night. It seems that my routine is not to be hungry in the morning but overeat in the evening. D. In my adult years, I have had week-long periods where I practically starve myself. This follows periods when I overeat. It seems I live a life of either feast or famine. Response Group 9: D Group 10 A. I usually am able to stop eating when I want to. I know when enough is enough. B. Every so often, I experience a compulsion to eat which I can't seem to control. C. Frequently, I experience strong urges to eat which I seem unable to control, but at other times I can control my eating urges. D. I feel incapable of controlling urges to eat. I have a fear of not being able to stop eating voluntarily. Response Group 10: B Group 11 A. I don't have any problem stopping eating when I feel full. B. I usually can stop eating when I feel full but occasionally overeat leaving me feeling uncomfortably stuffed. C. I have a problem stopping eating once I start and usually I feel uncomfortably stuffed after I eat a meal. D. Because I have a problem not being able to stop eating when I want, I sometimes have to induce vomiting to relieve my stuffed feeling. Response Group 11: A Group 12 A. I seem to eat just as much when I'm with others, Family social gatherings as when I'm by myself. B. Sometimes, when I'm with other persons, I don't eat as much as I want to eat because I'm self-conscious about my eating. C. Frequently, I eat only a small amount of food when others are present, because I'm very embarrassed about my eating. D. I feel so ashamed about overeating that I pick times to overeat when I know no one will see me. I feel like a closet eater. Response Group 12: A Group 13 A. I eat three meals a day with only an occasional between meal snack. B. I eat 3 meals a day, but I also normally snack between meals. C. When I am snacking heavily, I get in the habit of skipping regular meals. D. There are regular periods when I seem to be continually eating, with no planned meals. Response Group 13: B Group 14 A. I don't think much about trying to control unwanted eating urges. B. At least some of the time, I feel my thoughts are pre-occupied with trying to control my eating urges. C. I feel that frequently I spend much time thinking about how much I ate or about trying not to eat anymore. D. It seems to me that most of my waking hours are pre-occupied by thoughts about eating or not eating. I feel like I'm constantly struggling not to eat. Response Group 14: A Group 15 A. I don't think about food a great deal. B. I have strong craving for food but they last only for brief periods of time. C. I have days when I can't seem to think about anything else but food. D. Most of my days seem to be pre-occupied with thoughts about food. I feel like I live to eat. Response Group 15: B Group 16 A. I usually know whether or not I'm physically hungry. I take the right portion of food to satisfy me. B. Occasionally, I feel uncertain about knowing whether or not I'm physically hungry. A these times it's hard to know how much food I should take to satisfy me. C. Even though I might know how many calories I should eat, I don't have any idea what is a normal amount of food for me. Response Group 16: B Binge Eating Score: 20 Score less than 17 Minimal Risk Score between 18-26 Moderate Risk Score between 27-46 High Risk Assessment & Plan Assessment & Plan (1) Alcohol abuse: Code(s): F10.10 - Alcohol abuse, uncomplicated (2) Morbid obesity: Code(s): E66.01 - Morbid (severe) obesity due to excess calories Plan Pt is recently sober from alcohol as well as tramadol he was being given for many years from back injury. He also may have binge eating. Pt is in early remission from all and highly motivated. We spoke about the importance of getting professional support network (AA or therapy, or wildlife biology technician) to help him with relapse prevention in the future and gain further insight into his addiction. He is currently doing well and will be seen again after surgery. Telehealth Telehealth Location of provider rendering services: practice address Location of patient: address on file Patient Identification confirmed using: Name, : Yes Telehealth method: voice only Patient verbally consented to treatment: Yes Patient verbally consented to billing insurance company: Yes Patient informed of any privacy concerns related to visit: Yes Minutes spent on Phone/Video with Pt.: 45 Coding Level of Care Code Tele Psy Diag Eval (71449) Diagnoses Alcohol abuse F10.10 Morbid obesity E66.01 Time Spent (min) 45
== END 2023-10-01 15:55 | disposition home or self-care (01) ==
LOC: HO.HBST 15:53
PROVIDERS: PCP Nurse Practitioner Primary Care; Visit Provider Counselor Mental Health
DX: F10.10 Alcohol abuse, uncomplicated (principal); E66.01 Morbid (severe) obesity due to excess calories
CPT/HCPCS: 90791

== ENCOUNTER → 2023-10-01 15:53 | Outpatient (BNVA) | payer OTHER, SELFPAY | PROVIDERS: PCP Nurse Practitioner Primary Care; Visit Provider Counselor Mental Health ==

== ENCOUNTER 2023-10-12 14:21 | Outpatient (AMB) | payer OTHER, SELFPAY ==
[2023-10-12 10:41] VITALS: BMI 44.5
--- NOTE | 2023-10-12 10:41 | MHC.OFFVISWM ---
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 They were last seen in the office on , recorded weight at that time was 344 pounds, with a BMI of 45.4. Today's weight is 337.6 pounds and BMI is 44.5. There has been a weight loss of 36.2 pounds since initiating the surgical weight loss program on 06/27/23 with a total body weight loss of 9.6 %. Pre op work up completed as follows: SWL classes:? []/8 BH appts: 10/01/23 ? ? RD appts: needs f/u Labs: 08/13/23-low D, TSH 0.26 H. pylori: 08/13/23-pos, re-test 09/21/23-neg CXR: 08/13/23-nad EK08/13/23-lyssa ABD U/S: 10/26/23 UGI: 09/12/23-sm HH The patient reports he is following the meal plan. He is using [place] [employer] for the liquid. Not doing the last shake Current meal plan includes: Meal at 16:00 with 13 forks of protein and 13 forks of vegetables. Shakes using [employer], 18:00 to 20:00 1.5 scoops in 15 oz of milk. 21:00 to 23:00 2 scoops in 16 oz Midnight to 02:00 2 scoop in 16 oz 03:00 to 05:00 1.5 scoops 15 oz 06:00 to 08:00 1.5 scoop in 15 oz. Drinking 80 oz of water, no soda or juice No etoh since June. Current exercise plan includes: 400-600 saranya per day, 45 min, 6 days per week, elliptical at the gym [facility] Surgical History H/O heart surgery Family History Mother Diabetes Hypertension Thyroid cancer Father No problems noted. Daughter Asthma Son No problems noted. Son No problems noted. 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 Shakes using [employer], 18:00 to 20:00 1.5 scoops in 16 oz of milk. 21:00 to 23:00 1.5 scoops in 16 oz Midnight to 02:00 1.5 scoop in 16 oz 03:00 to 05:00 1.5 scoops 16 oz Patient has abstained from alcohol since committing to the program. None since June. We will arrange for follow-up with Maryse. He states he completed the 8 online classes. Reminded of his upcoming ultrasound on 10/26/2023. Return to the office 3-4 weeks. (2) H. pylori infection: Code(s): A04.8 - Other specified bacterial intestinal infections Plan: Resolved after treatment with antibiotics. Telehealth Telehealth Location of provider rendering services: practice address Location of patient: address on file Patient Identification confirmed using: Name, : Yes Telehealth method: voice only Patient verbally consented to treatment: Yes Patient verbally consented to billing insurance company: Yes Patient informed of any privacy concerns related to visit: Yes Minutes spent on Phone/Video with Pt.: 15 Coding Level of Care Code Tele Est Pt Level 3 (57901) Diagnoses Morbid obesity E66.01 H. pylori infection A04.8 Time Spent (min) 20
== END 2023-10-12 14:22 | disposition home or self-care (01) ==
LOC: HO.HBS 14:21
PROVIDERS: PCP Nurse Practitioner Primary Care; Visit Provider Physician Assistant Surgical
DX: E66.01 Morbid (severe) obesity due to excess calories (principal); A04.8 Other specified bacterial intestinal infections
CPT/HCPCS: 99213

== ENCOUNTER → 2023-10-12 14:21 | Outpatient (BNVA) | payer OTHER, SELFPAY | PROVIDERS: PCP Nurse Practitioner Primary Care; Visit Provider Physician Assistant Surgical ==

== ENCOUNTER 2023-10-17 08:46 | Outpatient (AMB) | payer OTHER, SELFPAY ==
--- NOTE | 2023-10-17 08:38 | MHC.AMNUTRGE ---
Intake Intake Visit Reasons: (tv) f/u swl Medicaid Business Analyst Required: No Allergies No Known Allergies Allergy (Verified 09/21/23 08:28) HPI Nutrition Presentation Reason for consult elevated BMI Diet Assmnt Details Pt states he is following the nutrition plan from [place]. he states he has no questions or concerns today. Plan is as follows: Meal at 16:00 with 12 forks of protein and 12 forks of vegetables. Shakes using celebrate rebuild, 18:00 to 20:00 1.5 scoops in 16 oz of milk. 21:00 to 23:00 1.5 scoops in 16 oz Midnight to 02:00 1.5 scoop in 16 oz 03:00 to 05:00 1.5 scoops 16 oz This is a total of64oz almond milk = 240kcal, 8g protein, 20g fat, and 3600mg calcium. see plan. Going to the gym 6 days per week. doing elliptical and some weight training. Pt states prior to coming to program was drinking a lot of alcohol a Liter of Kulwinder every 3 days ; However pt reported to [facility] ; 24 beers on sunday and 24 sunday, [place] whiskey 1 bottle on sunday and 1 bottle on sunday. Pt stated he did not have any withdraw symptoms from stopping.? Dietary counseling reduction Diagnosis Nutrition problem #1 overweight/obesity As related to (etiology) #1 excess energy intake and physical inactivity As evidenced by (sign/symptom) #1 high BMI Learning/Education Readiness to learn fair (minimally engaged ) Stages of change action Most Recent Diabetes Results: No Data to Display [facility] Surgical History H/O heart surgery Family History Mother Diabetes Hypertension Thyroid cancer Father No problems noted. Daughter Asthma Son No problems noted. Son No problems noted. 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 recommended using 8oz of almond milk per shake or water Patient is cleared from a nutrition standpoint for bariatric surgery. Educational requirements have been completed. Reviewed vitamin supplementation and commitment to protein shake for several months post surgery. Encouraged communication with office as needed Telehealth Telehealth Location of provider rendering services: practice address Location of patient: address on file Patient Identification confirmed using: Name, : Yes Telehealth method: voice only Patient verbally consented to treatment: Yes Patient verbally consented to billing insurance company: Yes Patient informed of any privacy concerns related to visit: Yes Minutes spent on Phone/Video with Pt.: 15 Coding Level of Care Code Nutr Indiv Subseq (47075) Diagnoses Morbid obesity E66.01 Time Spent (min) 15
== END 2023-10-17 08:46 | disposition home or self-care (01) ==
LOC: HO.HBS 08:46
PROVIDERS: PCP Nurse Practitioner Primary Care; Visit Provider Dietitian, Registered
DX: E66.01 Morbid (severe) obesity due to excess calories (principal)

== ENCOUNTER → 2023-10-17 08:46 | Outpatient (BNVA) | payer OTHER, SELFPAY | PROVIDERS: PCP Nurse Practitioner Primary Care; Visit Provider Dietitian, Registered | DX: E66.01 Morbid (severe) obesity due to excess calories (principal); Z71.3 Dietary counseling and surveillance | CPT/HCPCS: 97803 ==

== ENCOUNTER 2023-10-26 08:20 | Outpatient (REF) | payer OTHER, SELFPAY ==
--- NOTE | ~2023-10-26 | US_ITS ---
EXAMINATION: US COMPLETE ABDOMEN WITH LIVER ELASTOGRAPHY CLINICAL INFORMATION: Obesity. COMPARISON: None available. TECHNIQUE: Real-time imaging of the abdominal viscera. Noninvasive ultrasound liver fibrosis assessment is performed using Nicolette ElastPQ point quantification shear wave elastography (2D-SWE) with a C5-2 MHz transducer. Multiple elastography samples are obtained. FINDINGS: PANCREAS: Limited. The visualized pancreatic head and body are normal in appearance. The remainder of the pancreas is obscured from visualization by the overlying bowel gas. ABDOMINAL AORTA: The proximal, middle, and distal aortic segments are normal in caliber. INFERIOR VENA CAVA: Visualized portions are normal. LIVER: Normal. The liver demonstrates normal size, contour and echogenicity. No focal lesion or intrahepatic biliary duct dilatation. The right lobe measures 17.8 cm in length. The left lobe measures 11.8 cm in length. Portal flow is towards the liver (hepatopetal). Shear wave liver elastography median stiffness is 1.59 m/s (reference: normal median stiffness is 1.3 m/s or less). IQR/median stiffness to assess sampling precision is 0.08 (reference: good quality data set is IQR/median stiffness of 0.15 or less). GALLBLADDER: Normal. The gallbladder is physiologically distended without evidence of stones, sludge, polyps, wall thickening or pericholecystic fluid. COMMON BILE DUCT: Normal in caliber measuring 0.4 cm in diameter. RIGHT KIDNEY: Normal. No hydronephrosis. No renal calculi or focal parenchymal lesions. The kidney measures 11.7 cm in maximum dimension. LEFT KIDNEY: At the interpolar aspect medially, a 1.5 cm benign, simple cyst is seen, which requires no imaging follow-up. No hydronephrosis. No renal calculi or focal parenchymal lesions. The kidney measures 13.5 cm in maximum dimension. SPLEEN: Normal. The spleen measures 13.0 cm in maximum dimension. FREE FLUID: None. US/US abdomen comp w elastography IMPRESSION: 1. There is generalized increase in hepatic echotexture, consistent with fatty infiltration or hepatocellular disease. Please correlate clinically. No focal hepatic mass or intrahepatic biliary dilatation is seen. 2. There is mild hepatosplenomegaly. 3. Liver elastography: In the absence of other known clinical signs, measurements rule out compensated advanced chronic liver disease. If there are known clinical signs, further testing may be needed for confirmation. 4. Technically limited ultrasound examination of pancreas. REFERENCE: Society of Radiologists in Ultrasound Liver Stiffness Thresholds (2020): LIVER STIFFNESS THRESHOLDS: *Liver Stiffness equal or less than 1.3 m/s: High probability of being normal. *Liver Stiffness less than 1.7 m/s: In the absence of other known clinical signs, rules out compensated advanced chronic liver disease. *Liver Stiffness 1.7-2.1 m/s: Suggestive of compensated advanced chronic liver disease but need further test for confirmation. *Liver Stiffness over 2.1 m/s: Rules in compensated advanced chronic liver disease. *Liver Stiffness over 2.4 m/s: Suggestive of clinically significant portal hypertension. QUALITY OF DATA SET: *IQR/Median value equal or less than 0.15 implies a quality data set. *IQR/Median value over 0.15 implies a poor quality data set. SIGNIFICANT CHANGE FROM PRIOR EXAM: Significant change if liver stiffness measurement is 10% or greater from prior exam. OTHER CONSIDERATIONS: The stage of liver fibrosis may be overestimated in the setting of acute hepatitis, liver inflammation, elevated liver function tests, hepatic vascular congestion, obstructive cholestasis, non-fasting state, and infiltrative diseases such as amyloidosis and lymphoma. In some patients with NAFLD, the liver stiffness thresholds for compensated advanced chronic liver disease may be lower. In causes other than viral hepatitis and NAFLD, liver stiffness thresholds are not well established.
== END 2023-10-26 08:21 | disposition home or self-care (01) ==
LOC: HO.US 08:20
PROVIDERS: PCP Nurse Practitioner Primary Care; Visit Provider Physician Assistant Surgical
DX: E66.01 Morbid (severe) obesity due to excess calories (principal); I10 Essential (primary) hypertension
CPT/HCPCS: 76700; 76981

== ENCOUNTER 2023-11-05 13:07 | Outpatient (AMB) | payer OTHER, SELFPAY ==
[2023-11-05 11:18] VITALS: BMI 43.8
--- NOTE | 2023-11-05 11:18 | A.OFFVIS_ITS ---
Intake VS Expanded 11/05/23 11:18 Height 6 ft 1 in Weight 331 lb 12.8 oz BMI 43.8 Body Fat % 45.5 Body Fat Mass 150.9 Fat Free Mass 180.8 Visceral Fat Rating 24 Body Water % 39.3 Body Water Mass 130.3 Muscle Mass/Score 171.8 Basal Metabolic Rate/Score 2,122 Intake Visit Reasons: (tv) f/u swl Business Continuity Strategy Director Required: No Allergies No Known Allergies Allergy (Verified 09/21/23 08:28) Medication List - Last Reconciled 11/05/23 by JOSUE Rider cholecalciferol (vitamin D3) 125 mcg PO DAILY 90 days lisinopril-hydrochlorothiazide 20-12.5 mg 1 tab PO QAM HPI HPI Comments History of Present Illness Details The patient is a pleasant 33 year old male who returns to the clinic fo r pre-operative surgical weight loss management. They were last seen in the office on 10/12/23, recorded weight at that time was 331.8 pounds, with a BMI of 43.8. Today's weight is 331.8 pounds and BMI is 43.8. There has been a weight loss of 42 pounds since initiating the surgical weight loss program on 06/27/23 with a total body weight loss of 11.2 %. Pre op work up completed as follows: SWL classes:? 04/17 BH appts: cleared-10/01/23 ? ? RD appts: cleared-10/17/23 Labs: 08/13/23-low D, TSH 0.26 H. pylori: 08/13/23-pos, re-test 09/21/23-neg CXR: 08/13/23-nad EK08/13/23-lyssa ABD U/S: 10/26/23 UGI: 09/12/23-sm HH The patient reports he is following the meal plan. He is using [place] [employer] for the liquid. He has noticed a decrease in his abdomen and he has significant improved energy. He was going to discuss his low TSH with his PCP. Current meal plan includes: Meal at 16:00 with 12 forks of protein and 12 forks of vegetables. Shakes using celebrate rebuild, 18:00 to 20:00 1.5 scoops in 8 oz of uns weetened almond milk. 21:00 to 23:00 1.5 scoops in 8 oz of mil k Midnight to 02:00 1.5 scoop in 8 oz of milk 03:00 to 05:00 1.5 scoops 8 oz of milk Drinking 64-80 oz of water, no soda or juice No etoh since June. Current exercise plan includes: no gym in 2 weeks (due to 12 hour days at work, mon-sat) running in place at work and is very active [facility] Surgical History H/O heart surgery Family History Mother Diabetes Hypertension Thyroid cancer Father No problems noted. Daughter Asthma Son No problems noted. Son No problems noted. 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 He had decreased the volume of almond milk as he is only doing shakes and 1 meal. He is completed his preoperative evaluation and will now be referred to Dr. Barrera for ongoing preoperative care. Regarding his low TSH, he was going to discuss this with his primary care physician. Medications: Refilled cholecalciferol (vitamin D3) 125 mcg PO DAILY 90 days 90 caps 2RF Telehealth Telehealth Location of provider rendering services: practice address Location of patient: address on file Patient Identification confirmed using: Name, : Yes Telehealth method: voice only Patient verbally consented to treatment: Yes Patient verbally consented to billing insurance company: Yes Patient informed of any privacy concerns related to visit: Yes Minutes spent on Phone/Video with Pt.: 15 Coding Level of Care Code Tele Est Pt Level 3 (39192) Diagnoses Morbid obesity E66.01 Time Spent (min) 18
== END 2023-11-05 13:21 | disposition home or self-care (01) ==
LOC: HO.HBS 13:07
PROVIDERS: PCP Nurse Practitioner Primary Care; Visit Provider Physician Assistant Surgical
DX: E66.01 Morbid (severe) obesity due to excess calories (principal)
CPT/HCPCS: 99213

== ENCOUNTER → 2023-11-05 13:07 | Outpatient (BNVA) | payer OTHER, SELFPAY | PROVIDERS: PCP Nurse Practitioner Primary Care; Visit Provider Physician Assistant Surgical ==

== ENCOUNTER → 2023-11-30 07:56 | Outpatient (BNVA) | payer OTHER, SELFPAY | PROVIDERS: PCP Nurse Practitioner Primary Care; Visit Provider Surgery | DX: I51.7 Cardiomegaly (principal); R94.31 Abnormal electrocardiogram [ECG] [EKG] ==

== ENCOUNTER → 2023-11-30 07:56 | Outpatient (AMB) | payer OTHER, SELFPAY ==
--- NOTE | 2023-11-29 23:39 | MHC.OFFVISWM ---
Intake VS Expanded 11/30/23 08:33 Height 6 ft 1 in Weight 329 lb 6 oz BMI 43.5 Body Fat % 45.1 Body Fat Mass 148.6 Fat Free Mass 181 Visceral Fat Rating 24 Body Water % 39.6 Body Water Mass 130.5 Basal Metabolic Rate/Score 2,114 Intake Visit Reasons: TV Consult/Transfer [facility] Allergies No Known Allergies Allergy (Verified 11/30/23 08:36) Medication List - Last Reconciled 11/30/23 by Mika Barrera MD cholecalciferol (vitamin D3) 125 mcg PO DAILY 90 days lisinopril-hydrochlorothiazide 20-12.5 mg 1 tab PO QAM HPI TV Consult/Transfer Marquez HPI Details Start time: 8.17am, End time: 8.41am An additional 21 minutes were used at a different part of the day to complete this note and review patient's records. ?I spent 24 minutes speaking with the patient on the phone plus an additional 21 minutes reviewing and updating records for a total of 45 minutes HPI Comments History of Present Illness Details Overall weight loss: 41.1lbs, or 11.1% TBWL Current meal plan includes: Meal at 16:00 with 12 forks of protein and 12 forks of vegetables. Shakes using celebrate rebuild, 18:00 to 20:00 1.5 scoops in 8 oz of unsweetened almond milk. 21:00 to 23:00 1.5 scoops in 8 oz of almond milk Midnight to 02:00 1.5 scoop in 8 oz of almond milk 03:00 to 05:00 1.5 scoops 8 oz of almond milk Exercise: Gym [facility] Surgical History H/O heart surgery Family History Mother Diabetes Hypertension Thyroid cancer Father No problems noted. Daughter Asthma Son No problems noted. Son No problems noted. 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 Plan for lap sleeve gastrectomy including upper GI endoscopy. All tests has been completed and reviewed and the patient is cleared for the surgery. ?If diaphragmatic or ventral hernias are present at time of surgery, these will be repaired laparoscopically as well. Risks and complications were discussed in detail including possible conversion to an open procedure, anastomotic leak, bleeding requiring transfusion, small bowel obstruction, , DVT and pulmonary embolism, cardiac, or pulmonary complications, as termite control service representative complications such as anastomotic ulcer, insufficient weight loss and vitamin deficiencies. I emphasized the importance of close follow-up, adherence to instructions and good communication. So far he has proven to be an excellent communicator and very compliant with all our directions accomplishing a great weight loss. I believe that he is an excellent candidate and he is ready. 2. The patient participated in a structured preoperative lifestyle intervention program supervised by a physician the 4 months preceding the surgical procedure. The lifestyle intervention included a structured nutritional plan with a specific daily protein intake goal, an exercise plan with a 2000 calorie burn weekly goal, weekly behavior modification guidance and completion of eight 1-hour online nutritional classes and passing successfully the corresponding quizzes. Adherence to preoperative care plan was demonstrated by completing an extensive preoperative work-up. Program participation was demonstrated by completing 6 visits with our medical team and by sharing weekly weight measurements weekly for 4 consecutive months via an approved body composition scale. Compliance to the lifestyle intervention was demonstrated by achieving a 43.4lbs weight-loss or 11.6% total body weight loss (TBWL). No medications were used to achieve this weight loss. In our published experience an over 7% preoperative TBWL, achieved by meeting the diet and exercise goals of our program improves surgical outcomes, reduces the potential for surgical complications, and predicts a statistically significant higher weight loss up to 6 years postoperatively. 3. Continue present nutritional plan of 4 Celebrate Rebuild protein shakes (1.5 scoops each in almond milk) and one meal (12 forks of protein and 12 forks of salad or vegetables) 4. Try the Zone Perfect protein bars and let me know if you like them 5. The best choice would be to purchase a stationary bike, elliptical or treadmill at home that can track calories. Let me know if you do so I can give you an exercise plan. 6. Continue to send me weight measurements weekly on Fridays Orders: Orders CA stress test 11/29/23 I51.7 - Cardiomegaly, R94.31 - Abnormal electrocardiogram [ECG] [EKG] Telehealth Telehealth Location of provider rendering services: practice address Location of patient: address on file Patient Identification confirmed using: Name, : Yes Telehealth method: voice only Patient verbally consented to treatment: Yes Patient verbally consented to billing insurance company: Yes Patient informed of any privacy concerns related to visit: Yes Minutes spent on Phone/Video with Pt.: 45 Coding Level of Care Code Tele Est Pt Level 5 (66874) Diagnoses Morbid obesity E66.01 Time Spent (min) 45
[2023-11-30 08:33] VITALS: BMI 43.5
== END ==
LOC: HO.HBS 07:56
PROVIDERS: PCP Nurse Practitioner Primary Care; Visit Provider Surgery
DX: E66.01 Morbid (severe) obesity due to excess calories (principal)
CPT/HCPCS: 99215

== ENCOUNTER → 2023-12-12 07:57 | Outpatient (REF) | payer OTHER, SELFPAY ==
--- NOTE | 2023-12-12 07:59 | CA_ITS ---
Acquisition Time: 2023-12-12 08:20:36 Total Exercise Time: 00:09:45 Test Indications: Abnormal ECG Medications: HTN/LISINOPRIL Protocol: OLIVIA Max HR: 164 BPM 88% of Pred: 185 BPM Max BP: 202/096 mmHG Max Work Load: 11.2 METS Exercise stress test exercise 9 min 45 sec of Olivia protocol achieving 88% MPHR and 11.2 METS, without anginal symptoms, with isolated PVCs and venticular bigeminy, with restign HTN and max BP 202/96, without EKG changes. Test reviewed with Dr. Brock Referred By: Mika Barrera Overread By: Laura Inman
== END ==
LOC: HO.CARD 07:57
PROVIDERS: PCP Nurse Practitioner Primary Care; Visit Provider Surgery
DX: I51.7 Cardiomegaly (principal); R94.31 Abnormal electrocardiogram [ECG] [EKG]
CPT/HCPCS: 93017

== ENCOUNTER → 2023-12-12 07:59 | Outpatient (BNV) | payer OTHER, SELFPAY | PROVIDERS: PCP Nurse Practitioner Primary Care; Visit Provider Nurse Practitioner | DX: I49.3 Ventricular premature depolarization (principal); I10 Essential (primary) hypertension | CPT/HCPCS: 93016; 93018 ==

== ENCOUNTER → 2023-12-18 08:21 | Outpatient (BNVA) | payer OTHER, SELFPAY | PROVIDERS: PCP Nurse Practitioner Primary Care; Visit Provider Surgery ==

== ENCOUNTER 2023-12-19 08:39 | Outpatient (AMB) | payer OTHER, SELFPAY ==
--- NOTE | 2023-12-19 12:31 | MHC.OFFVISWM ---
Intake VS Expanded 12/19/23 12:43 Height 6 ft 1 in Weight 329 lb 6 oz BMI 43.5 Body Fat % 45.1 Body Fat Mass 148.6 Fat Free Mass 181 Visceral Fat Rating 24 Body Water % 39.6 Body Water Mass 130.5 Basal Metabolic Rate/Score 2,114 Intake Visit Reasons: TV Pre Op LSG 12/27/23 Allergies No Known Allergies Allergy (Verified 12/19/23 12:32) Medication List - Last Reconciled 12/19/23 by Mika Barrera MD cholecalciferol (vitamin D3) 125 mcg PO DAILY 90 days lisinopril-hydrochlorothiazide 20-12.5 mg 1 tab PO QAM ondansetron 4 mg PO Q12H pantoprazole 40 mg PO DAILY polyethylene glycol 3350 (Miralax) 17 grams PO DAILY sucralfate 10 mL PO BID HPI TV Pre Op LSG 12/27/23 HPI Details Start time: 12.22pm, End time: 12.52pm ?I spent 25 minutes speaking with the patient on the phone plus an additional 5 minutes reviewing and updating records for a total of 30 minutes HPI Comments History of Present Illness Details Overall weight loss: 43.4lbs, or 11.64% TBWL Is doing 4 Celebrate Rebuild protein shakes (1.5 scoops each in 8oz almond milk) and one meal (12 forks of protein and 12 forks of salad or vegetables) Exercise:is doing a stationary bike [facility] Medical History (Updated 12/19/23 @ 10:07 by Flavia Gonzalez RN) Asthma Murmur HTN (hypertension) Surgical History H/O heart surgery Family History Mother Diabetes Hypertension Thyroid cancer Father No problems noted. Daughter Asthma Son No problems noted. Son No problems noted. Social History (Updated 12/19/23 @ 10:11 by Flavia Gonzalez RN) Household Members: Significant Other Housing: Apartment Are you a primary critical care physician assistant to a significant other at home: No Do you presently have visiting nurse or other home services: No 75 years or older and lives alone: No Alcohol intake: former Patient Tobacco Use Status: Never used Tobacco Use of substances other than those prescribed or required for medical reasons: No Advance Directives: No Advance Directives Information Provided: Yes Advance Directives on File: No Healthcare Proxy: No Recently lost weight without trying: No Poor oral hygiene: No Current occupational status: employed 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 Plan for lap sleeve gastrectomy including upper GI endoscopy. All tests has been completed and reviewed and the patient is cleared for the surgery. ?If diaphragmatic or ventral hernias are present at time of surgery, these will be repaired laparoscopically as well. Risks and complications were discussed in detail including possible conversion to an open procedure, anastomotic leak, bleeding requiring transfusion, small bowel obstruction, , DVT and pulmonary embolism, cardiac, or pulmonary complications, as termite technician complications such as anastomotic ulcer, insufficient weight loss and vitamin deficiencies. I emphasized the importance of close follow-up, adherence to instructions and good communication. So far she has proven to be an excellent communicator and very compliant with all our directions accomplishing a great weight loss. I believe that she is an excellent candidate and she is ready. 2. Preop prescriptions were provided and explained the purpose of each one. Need to be purchased preop. Start Pantoprazole now as you get it from the pharmacy, 1 pill per day. Sucralfate and Zofran are for after surgery as needed. 3. Bowel prep: please do 7 packets ?of Miralax mixing each one with a an 8oz glass of water, crystal light, gatorade zero, or propel ?on 12/25/23 and the same amount on 12/26/23. The Miralax you begin with one packet at a time in 8oz water or crystal light, gatorade zero, or propel ?as early in the day as you can and you do them back to back until you finish them. Continue the protein shakes during? the bowel prep. 4. Needs to purchase 1oz medicine cups . 5. Needs to purchase Children's liquid Tylenol for postop pain control. 6. Avoid aspirin, motrin, Advil, Aleve, Ibuprofen, Naproxyn. Tylenol is OK. 7. She needs to purchase the Celebrate 4:1 protein shakes from the hospital's gift shop. 8. Check your blood pressure daily in the morning. If your blood pressure is: Below 120/70: do not take the Lisinopril/HCTZ 121/71 to 130/85: take HALF of the Lisinopril/HCTZ Over 131/86: take one whole pill of the Lisinopril/HCTZ 9. Importance of adherence to postop folllow-up and recommendations was underscored and she understands that. 10. Stop food and bars as of tomorrow 12/20/2023 and continue with 5 Celebrate Rebuild protein shakes (TWO scoops EACH in 8oz almond milk) at 9pm-11pm, 12am-2am, 3am-5am, 6am-8am and at 9am-11am 11. No soups, broths or V8 12. The patient's?medical?history has been reviewed and they are considered low risk for post op DVT and therefore DVT prophylaxis is not considered necessary. Travel after surgery was reviewed. The patient has not disclosed any travel plans during the first 30 days after surgery and they have been advised that within the first 30 days after surgery any bus, plane, train or car travel over 2 hours in duration is contraindicated due to the possibility of developing blood clots from immobility. Any travel, needs to include periods of ambulation of 10 minutes in duration every 2 hours.? Patient was instructed to discuss any plans for travel during this period with their bariatric surgeon.? 13. Please take at the day of surgery the following medications: The Lisinopril/HCTZ with the parameters explained previously 14. Absolutely no smoking or vaping, or marijuana until the surgery and for at least the first 4 weeks. Only nicotine patches are allowed. 15. Send me weight measurements tomorrow 12/20/23 and then on 12/27/23, the day of surgery before you go to the hospital. 16. Avoid any steroids by mouth for any reason. Let me know if someone prescribes them to you 17. These instructions supersede anything else you read in the handbook, anything you watched in videos or classes or you were told by any other provider. If there is any conflict, you follow the above instructions and nothing else. Medications: New sucralfate 10 mL PO BID 600 mL 2RF K21.9 - Gastro-esophageal reflux disease without esophagitis ondansetron Only take one every 12 hours as needed if you have nausea 4 mg PO Q12H 20 tabs 0RF nausea and vomiting R11.0 - Nausea pantoprazole 40 mg PO DAILY 90 tabs 0RF K21.9 - Gastro-esophageal reflux disease without esophagitis polyethylene glycol 3350 (Miralax) Mix each packet with 8oz of water, Crystal light, or Gatorade zero, or Propel and do 7 packets on 12/25/23 and another 7 packets on 12/26/23 17 grams PO DAILY 14 ea 0RF Z01.818 - Encounter for other preprocedural examination Telehealth Telehealth Location of provider rendering services: practice address Location of patient: address on file Patient Identification confirmed using: Name, : Yes Telehealth method: voice only Patient verbally consented to treatment: Yes Patient verbally consented to billing insurance company: Yes Patient informed of any privacy concerns related to visit: Yes Minutes spent on Phone/Video with Pt.: 30 Coding Level of Care Code Tele Est Pt Level 4 (94181) Diagnoses Morbid obesity E66.01 Time Spent (min) 30
[2023-12-19 12:43] VITALS: BMI 43.5
== END 2023-12-19 12:53 | disposition home or self-care (01) ==
LOC: HO.HBS 08:39
PROVIDERS: PCP Nurse Practitioner Primary Care; Visit Provider Surgery
DX: E66.01 Morbid (severe) obesity due to excess calories (principal)
CPT/HCPCS: 99214

== ENCOUNTER → 2023-12-19 08:39 | Outpatient (BNVA) | payer OTHER, SELFPAY | PROVIDERS: PCP Nurse Practitioner Primary Care; Visit Provider Surgery ==

== ENCOUNTER 2023-12-27 05:51 | Day surgery (SDC) | payer OTHER, SELFPAY ==
[2023-12-18 07:05] LABS: MANUAL DIFF FLAG NO
[2023-12-18 07:15] LABS: Basophils Absolute Auto 0.1 X10*3/uL (0.0-0.2); Basophils Percent Auto 0.7 % (0-2); Eosinophils Absolute Auto 0.1 X10*3/uL (0.0-0.4); Eosinophils Percent Auto 1.6 % (0-4); Hematocrit 45.8 % (42.0-52.0); Hemoglobin 14.6 g/dl (14.0-18.0); Imm Gran Abs Auto 0.02 X10*3/uL (0.00-0.03); Imm Gran Pct Auto 0.3 % (0.0-0.4); Lymphocytes Absolute Auto 2.1 X10*3/uL (1.2-4.9); Lymphocytes Percent Auto 30.3 % (20-40); Mean Corpuscular HGB Conc 31.9 g/dl (31.0-36.0); Mean Corpuscular Hemoglobin 25.8 pg (27.0-33.0); Mean Corpuscular Volume 81.1 fL (80.0-98.0); Mean Platelet Volume 11.1 fL (9.4-12.4); Monocytes Absolute Auto 0.4 X10*3/uL (0.1-1.2); Monocytes Percent Auto 6.5 % (2-11); Neutrophils Absolute Auto 4.1 x10*3/uL (2.0-8.3); Neutrophils Percent Auto 60.6 % (45-73); Platelet Count 215 X10*3/uL (160-400); Red Blood Count 5.65 X10*6/uL (4.60-5.80); Red Cell Distribution Width 13.3 % (11.0-16.0); White Blood Count 6.8 X10*3/uL (4.8-10.8)
[2023-12-18 07:20] LABS: Prothrombin Time 12.1 SEC (11.1-13.3)
[2023-12-18 07:22] LABS: Estimated Average Glucose 108 mg/dL; Hemoglobin A1C 128.6178 umol/L; Hemoglobin A1c % 5.4 % (<6.0)
[2023-12-18 07:23] LABS: Partial Thromboplastin Time 34.3 SEC (26.0-36.8)
[2023-12-18 07:37] LABS: Alanine Aminotransferase 31 U/L (0-40); Albumin Level 4.2 g/dL (3.5-5.0); Alkaline Phosphatase 107 U/L (39-117); Anion Gap 10 (12-20); Aspartate Amino Transferase 19 U/L (5-37); Bilirubin Total 0.4 mg/dL (0.0-1.0); Blood Urea Nitrogen 17 mg/dL (9-16); Calcium 9.2 mg/dL (8.4-10.2); Carbon Dioxide 28 mmol/L (22-29); Chloride 107 mmol/L (96-108); Cholesterol 158 mg/dL (<200); Estimated Glomerular Filt Rate > 60; Glucose Random 85 mg/dL (60-115); HDL Cholesterol 38 mg/dL (>40); Iron 69 mcg/dL (45-160); LDL Cholesterol Calculated 109 mg/dL (<100); Percent Iron Saturation 24 % (15-50); Potassium 3.9 mmol/L (3.3-5.1); Sodium 141 mmol/L (135-145); Total Iron Binding Capacity 290 mcg/dL (228-428); Triglycerides 55 mg/dL (<150); Unsaturated Iron Binding 221 ug/dL
[2023-12-18 07:55] LABS: Ferritin 224 ng/mL (20-250); TSH reflex Free T4 0.42 uIU/mL (0.32-4.0); Vitamin D 25-OH Total 19.1 ng/mL (>30)
[2023-12-18 08:04] LABS: Vitamin B12 833 pg/mL (200-900)
[2023-12-19 10:04] VITALS: BMI 43.5
[2023-12-20 17:07] LABS: Zinc 69 mcg/dL (60-130)
[2023-12-22 02:24] LABS: Vitamin A 38 mcg/dL (38-98)
[2023-12-23 15:42] LABS: Vitamin B1 15 nmol/L (8-30)
--- NOTE | 2023-12-26 12:20 | P.CONAN_ITS ---
Documented by User: Erin Elizondo MD 12/26/23 12:23 HPI - Anesthesia Eval Consult details Narrative: 33 yo male patient for EGD, Laparoscopic Sleeve Gastrectomy, possible hiatal hernia repair, possible ventral hernia repair, possible open PMFSH Active Problems Active Problems: All Active Problems Pre-op evaluation (Acute) Abnormal EKG (Acute) LVH (left ventricular hypertrophy) (Acute) Alcohol abuse (Acute) H. pylori infection (Acute) HTN (hypertension) (Acute) Morbid obesity (Acute) Past Medical History Medical History Asthma Murmur HTN (hypertension) Family History Family History Mother Diabetes Hypertension Thyroid cancer Father No problems noted. Daughter Asthma Son No problems noted. Son No problems noted. Surgical History Surgical History H/O heart surgery Social History Social History Household Members: Significant Other Housing: Apartment Are you a primary progressive care unit registered nurse to a significant other at home: No Do you presently have visiting nurse or other home services: No Alcohol intake: former Patient Tobacco Use Status: Never used Tobacco Use of substances other than those prescribed or required for medical reasons: No Have you been hit, kicked, punched, or otherwise hurt by someone within the past year? 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 Meds Allergies Allergy/AdvReac Type Severity Reaction Status Date / Time No Known Allergies Allergy Verified 12/19/23 12:32 Home Medications ?Medication ?Instructions ?Recorded ?Confirmed ?Last Taken ?Type lisinopril 20 1 tab PO QAM 07/30/23 12/27/23 12/27/23 History mg-hydrochlorothiazide 12.5 mg tablet Exam Height,Weight and Vital Signs: Height 6 ft 1 in Weight 149.685 kg Pertinent Lab Results Pertinent Lab Results: Laboratory Tests 12/18/23 12/18/23 06:50 07:02 WBC 6.8 RBC 5.65 Hgb 14.6 Hct 45.8 MCV 81.1 MCH 25.8 L MCHC 31.9 RDW 13.3 Plt Count 215 MPV 11.1 Immature Gran % (Auto) 0.3 Neut % (Auto) 60.6 Lymph % (Auto) 30.3 [place] % (Auto) 6.5 Eos % (Auto) 1.6 Baso % (Auto) 0.7 Lymph # (Auto) 2.1 [place] # (Auto) 0.4 Eos # (Auto) 0.1 Baso # (Auto) 0.1 Abs Immat Gran (auto) 0.02 Absolute Neuts (auto) 4.1 Absolute Nucleated RBC 0.000 Nucleated RBC % (auto) 0.0 PT 12.1 INR 1.0 APTT 34.3 Sodium 141 Potassium 3.9 Chloride 107 Carbon Dioxide 28 Anion Gap 10 L BUN 17 H Creatinine 0.76 Estim Creat Clear Calc TNP Estimated GFR > 60 Random Glucose 85 Estimat Average Glucose 108 Hemoglobin A1c % 5.4 Calcium 9.2 Iron 69 TIBC 290 % Saturation 24 Unsat Iron Binding 221 Ferritin 224 Total Bilirubin 0.4 AST 19 ALT 31 Alkaline Phosphatase 107 C-Reactive Protein 0.80 H Total Protein 7.0 Albumin 4.2 Triglycerides 55 Cholesterol 158 LDL Cholesterol, Calc 109 H HDL Cholesterol 38 L Vitamin A 38 Vitamin B1 15 Vitamin B12 833 25-OH Vitamin D Total 19.1 L TSH 0.42 Zinc 69 Blood Type A Positive Antibody Screen NEGATIVE Documented by User: Mimi Castrejon MD 12/27/23 07:34 [facility] Past Medical History Medical History Asthma Murmur HTN (hypertension) Family History Family History Mother Diabetes Hypertension Thyroid cancer Father No problems noted. Daughter Asthma Son No problems noted. Son No problems noted. Surgical History Surgical History H/O heart surgery History of Problems with Anesthesia: No Social History Social History Household Members: Significant Other Housing: Apartment Are you a primary progressive care unit registered nurse to a significant other at home: No Do you presently have visiting nurse or other home services: No Alcohol intake: former Patient Tobacco Use Status: Never used Tobacco Use of substances other than those prescribed or required for medical reasons: No Have you been hit, kicked, punched, or otherwise hurt by someone within the past year? 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 Meds Allergies Allergy/AdvReac Type Severity Reaction Status Date / Time No Known Allergies Allergy Verified 12/19/23 12:32 Home Medications ?Medication ?Instructions ?Recorded ?Confirmed ?Last Taken ?Type lisinopril 20 1 tab PO QAM 07/30/23 12/27/23 12/27/23 History mg-hydrochlorothiazide 12.5 mg tablet Exam Airway Mallampati Class: III TM Dist: >3cm Neck ROM: Full Loose/Missing/Broken Teeth: No Heart: RRR Lungs: CTA Assessment and Plan Assessment Anesthesia Assessment: Anesthesia Plan Discussed and Chart Reviewed Final Anesthetic Review History of Problems with Anesthesia: No NPO: Yes ASA Class: III Final Preanesthetic Review: Meds/Allgs Chart Reviewed, Consent Obtained/Reviewed and Anes Risks/Benef Reviewed Patient Risk: Intermediate Procedure Risk: Intermediate Anesthetic Plan Anesthetic Plan: GA Disposition: Standard PACU
[2023-12-27] VITALS (22 sets, daily range): BP systolic 128–187; BP diastolic 67–92; PULSE 45–77; RESP 12–27; TEMP 36.1–36.5; O2SAT 94–100; BMI 41.0; BMI 43.1
[2023-12-27] MEDS: Aprepitant 32 MG/4.4 ML VIAL IVPUSH (06:18)
[2023-12-27] MEDS: Lactated Ringers 1,000 ML 999 ML IV ×2 (06:29→07:30)
--- NOTE | 2023-12-27 07:27 | PC.NURSE ---
pt had a liter a fluids in preop
--- NOTE | 2023-12-27 07:41 | MHC.SHP ---
Pre-Procedural Eval Section A - 24 Hr Update-Section A only Date of Service: 12/27/23 The patient is an INPATIENT: No The patient has been examined within 24 hours of the surgical procedure. The History & Physical has been completed within 30 days and I have reviewed it.: Yes Section B - Complete if H&P > 30 days Chief Complaint: Morbid (severe) obesity due to excess calories Relevant Family History (Specify if Yes): No Relevant Social History: None Present Medications: None Medical History: No relevant PMH History of Previous Operations: No relevant previous surgery Allergies: Allergies Allergy/AdvReac Type Severity Reaction Status Date / Time No Known Allergies Allergy Verified 12/19/23 12:32 Review of Systems Sugical H&P ROS: Negative: Constitution, Cardiovascular, Respiratory, Neurological, Psychiatric, Hem-Onc, Allergic/Immunologic, Gastrointestinal, Genitourinary, Musculoskeletal, Integumentary, Endocrine and Eyes/Ears/Nose/Throat Exam Surgical H&P Exam: Normal: HEENT, Normal: Heart, Normal: Lungs, Normal: Extremities, Normal: Abdomen, Normal: Skin and Normal: Neurological Plan Diagnosis/Plan: Unchanged I have reviewed the history and physical and performed a pertinent physical examination on my patient. No changes have occurred unless specified. Time Spent With Patient Time: Total time managing care of this patient today ____ minutes.
--- NOTE | 2023-12-27 07:41 | PM.OP ---
Brief Operative Note Date of Service: 12/27/23 Pre-op diagnosis: Morbid obesity with comorbidities (see below) Post-op diagnosis: same (& congenital abdominal adhesions) Procedure: INITIAL PATIENT BMI ON PRESENTATION AT OUR OFFICE: 49.2 kg/m2 LAST BMI BEFORE SURGERY: 42,1 kg/m2 COMORBIDITIES: hypertension, back pain, liver steatosis, liver fibrosis, LVH ?The patient presented to the Weight Management Program with significant obesity that was negatively impacting the patient's comorbidities as listed above.? The program is a phased program with a special focus on preoperative medical weight management to promote substantial weight loss and prepare the patients for the second phase of the program: bariatric surgery. The patient participated in an intensive weekly lifestyle ?intervention and exercise program during which the patient ?has lost between the initial office visit and the last preoperative visit 45lbs, or 12.06% of initial actual body weight. It was deemed appropriate for the patient to now have bariatric surgery. In light of the current Covid-19 pandemic and the well documented strong association of obesity and increased risk of worse outcomes if infected with Covid-19 (REFERENCES:https://pubmed.ncbi.nlm.nih.gov/13808789/,?https://pubmed.ncbi.nlm.nih.gov/47281806/), any delay in undergoing bariatric surgery may lead to the patient's worsening health condition and increased?risk of more severe Covid-19 disease if infected. In addition a recent?study from [facility] published in [facility] on 09/05/2021 ([email or web address]) found that, among patients with obesity, substantial weight loss achieved with surgery was associated with improved outcomes of COVID-19 infection. The findings suggest that obesity can be a modifiable risk factor for the severity of COVID-19 infection. In addition, the patient met the BMI-criteria for bariatric surgery based on the BMI on initial presentation. The patient should not be penalized for achieving such weight loss because ?it is not sustainable long-term without surgical intervention and it was achieved in preparation for bariatric surgery ?under my direction and based on my published research ([email or web address] and?https://www.soard.org/article/[email or web address](83)03730-X/pdf) ?that a 10% preoperative weight loss improves long-term weight loss after surgery and reduces perioperative complications.? Insurance carriers such as [facility] have endorsed my recommendations ?and have included in their policies criteria to include a 10% preoperative weight loss requirement. PROCEDURE: Esophago-gastroscopy, laparoscopic lysis of adhesions, laparoscopic sleeve gastrectomy and laparoscopic gastropexy INDICATIONS: This is a 33 year-old male who was electively scheduled for laparoscopic, possibly open sleeve gastrectomy. The risks and complications of the procedure were discussed with the patient in advance, particularly the possibility of ; pulmonary embolism; staple line leak; bleeding; GERD; cardiac, pulmonary, or renal complications; as well as long-term problems such as insufficient weight loss, vitamin deficiency, strictures, or ulcers. The patient understood all the risks, and was in agreement to proceed with surgery. DESCRIPTION OF PROCEDURE: After informed consent was obtained from the patient, the patient was given preoperative antibiotics, and was transferred to the operating room. After successful induction of general anesthesia, pneumatic compression devices were placed on both lower extremities. An upper endoscopy was performed next. The oropharynx and esophagus appeared to be within normal limits. There was no diaphragmatic hernia present, consistent with the findings of the preoperative upper GI. The stomach was entered. Then after all fluid and air were suctioned and the stomach was fully decompressed, the scope was withdrawn and secured in the mid esophagus. The patient was then prepped and draped in the usual sterile manner, and abdominal access was established at the right upper quadrant with the Raven technique. A 12 mm blunt port was inserted, and the abdomen was insufflated with CO2 to a pressure of 15 mmHg. Under direct visualization, additional ports were placed, specifically two 5 mm Versi-step ports to the left upper quadrant, and a 5 mm Versi-Step port to the right upper quadrant. 1% lidocaine plain was used to infiltrate all port sites as well as all fascia defects. Using the EndoClose suture passer device, I placed a #1 Polysorb tie across the falciform ligament in order to retract it up against the abdominal wall and prevent injury of the ligament with our instruments during the procedure. Following that, the patient was placed in a steep reverse Trendelenburg position. An additional 5 mm port was placed to the right flank for the Mediflex retractor that was used to retract the left lobe of the liver. The gastro-esophageal fat pad was opened with the ultrasonic device (Thunderbeat, Olympus) and the anterior esophagus and hiatus were exposed. The angle of His was opened with the ultrasonic device the fundus of the stomach from any diaphragmatic and splenic attachments. I then opened the gastrocolic ligament between the transverse colon and the greater curvature of the stomach with the ultrasonic device to enter the lesser sac and facilitate the ligation of the short gastric vessels. I started at a mid-point along the greater curvature and using the Thunderbeat, all short gastric vessels were divided all the way to the angle of His until the left viviana was completely dissected at its entirety. I then divided the gastro-colic ligament distally to a distance of about 3-4 cm proximal to the pylorus. There were extensive congenital adhesions between the pancreas and posterior gastric wall. Those were lysed completely with the ultrasonic device. Adhesiolysis took approximately 45 min to complete. The stomach was then divided transversely with two Endo ROLAN-45 purple and four ROLAN-60 articulating purple loads using the SIGNIA stapler and loads. Every effort was made that the gastric sleeve had a tubular shape and an even caliber throughout. Once the sleeve resection was completed, the staple line of the gastric sleeve was reinforced with Hemoclips. The resected stomach was retrieved without difficulty from the Raven port. A gastropexy was then performed in order to prevent postoperative GERD and partial gastric volvulus. Several interrupted 2.0 Surgidac sutures were placed between the sleeve's staple line and the previously divided greater omentum and gastro-colic ligament using the Endo-Stitch device. ?An upper endoscopy was performed. There was no narrowing at the GE junction. The scope was easily advanced all the way to the pylorus which was clearly visualized. There was no narrowing anywhere and the sleeve's caliber was even throughout. The sleeve's staple line was inspected and there was no evidence of ischemia, bleeding or dehiscence. At that point the gastroscope was withdrawn from the patient?s mouth while we were decompressing the bowel and the stomach from any remaining air. I looked into the lesser sac to see how the sleeve was situating and it was situating well. There was no bleeding from the staple line, spleen, or short gastric vessels. The Mediflex retractor was removed, and the undersurface of the liver was inspected and there was no bleeding. The patient was placed in supine position. I closed the fascial defect of the 12 mm port site with a figure of eight #1 Polysorb suture. Then 30cc Ropivacaine plain with 10 mg of Dexamethasone were used to infiltrate the fascial closure as well as all skin incisions. A total of 7ml Zynrelef was applied in the Raven wound. At this point, the abdomen was deflated, all ports were removed under direct vision, and no bleeding was noted from any of the port sites. The skin incisions were irrigated with saline and were closed with 4-0 absorbable monofilament sutures. Steri-Strips and OpSites were used to cover all incisions. The patient was extubated and was transferred in stable condition to the recovery room for further care. I was present and performed all bales parts of the procedure. Mr. Lopez was the first line supervisor. There were no residents to assist with this case. Neeraj Barrera MD, PhD, FACS Surgeon: Mika Barrera MD Anesthesia: GETA, local and other (TAP block & 7ml Zynrelef) Was an Events Director used for this Procedure?: No Events Director: Marquez Lopez Estimated blood loss (mL): 10 IV fluids (mL): 1,500 Urine output (mL): 0 (No Bertrand to record output) Pathology: other (Stomach) Condition: stable Disposition: PACU
--- NOTE | 2023-12-27 07:44 | P.PNGS_ITS ---
Subjective Subjective Date of Service: 12/28/23 Interval history: Feels well. Mild incisional pain. He is tolerating phase 1 bariatric diet Physical Exam 2 Vital Signs: Vital Signs: Last Vital Signs Temp 97.1 F 12/27/23 05:59 Pulse 50 12/27/23 05:59 Resp 18 12/27/23 05:59 BP 128/69 12/27/23 05:59 Pulse Ox 98 12/27/23 05:59 O2 Del Method Room Air 12/27/23 05:59 BMI result Body Mass Index 41.0 GI: Inspection: Yes normal to inspection, Yes incision (clean, dry and intact) and Yes obesity Palpation (GI): Soft to palpation Extrem: Right lower extremity: normal to inspection (no calf tenderness) L eft lower extremity: normal to inspection (no calf tenderness) Objective Data Active Medications Albuterol Sulfate (Albuterol Sulfate (0.083%) 2.5 Mg/3 Ml Vial.Neb) 2.5 mg INHALE ONCE PRN PRN Reason: Wheezing Stop: 12/27/23 13:34 Fentanyl (Fentanyl Citrate/Pf 100 Mcg/2 Ml Vial) 25 mcg IVPUSH Q5M PRN; Protocol PRN Reason: Pain, Moderate(Pain Scale 4-6) Stop: 12/27/23 13:34 Hydromorphone HCl (Hydromorphone Hcl 0.5 Mg/0.5 Ml Syringe) 0.25 mg IVPUSH Q5M PRN; Protocol PRN Reason: Pain, Severe (Pain Scale 7-10) Stop: 12/27/23 13:34 Lactated Ringer's (Lr) 1,000 mls @ 999 mls/hr IV .Q1H1M PRASANTH Stop: 12/27/23 08:00 Last Admin: 12/27/23 06:29 Dose: 999 mls/hr Documented By: MOUNA Ondansetron HCl (Ondansetron Hcl 4 Mg/2 Ml Vial) 4 mg IVPUSH ONCE PRN PRN Reason: Nausea and Vomiting Stop: 12/27/23 13:34 Labs 12/28/23 05:57 12/28/23 05:57 Procedures Date of Service Date of Service: 12/28/23 Progress Note: A&P Assessment and plan (1) Morbid obesity: Status: Acute Assessment and Plan: s/p laparoscopic sleeve gastrectomy, lysis of adhesions and gastropexy Doing well Will check am labs and if OK the patient will be discharged home (2) HTN (hypertension): Status: Acute (3) LVH (left ventricular hypertrophy): Status: Acute (4) Steatosis, liver: Status: Acute (5) Liver fibrosis: Status: Acute (6) Back pain: Status: Acute (7) Congenital intra-abdominal adhesions: Status: Acute Time Spent With Patient Time: Total time managing care of this patient today ____ minutes. Quality Stroke Does the patient have a stroke diagnosis?: No VTE Prior VTE?: Yes VTE Risk Level:: Surgical - moderate VTE Device Contraindication: Treatment Not Tolerated VTE Drug Contraindication: Treatment Not Indicated
[2023-12-27] MEDS: ceFAZolin Sodium/Dextrose,Iso 2 GM/50 ML PIGGYBACK IV ×2 (07:55→13:24)
[2023-12-27] MEDS: Acetaminophen 1,000 MG/100 ML PIGGYBACK 400 MG IV (09:10)
--- NOTE | 2023-12-27 10:17 | P.DS_ITS ---
DS: Providers Provider Date of Service: 12/28/23 Primary care physician: Kristal Cheek NP DS: Diagnosis Discharge Diagnosis (1) Morbid obesity: Status: Acute (2) HTN (hypertension): Status: Acute (3) LVH (left ventricular hypertrophy): Status: Acute (4) Steatosis, liver: Status: Acute (5) Liver fibrosis: Status: Acute (6) Back pain: Status: Acute DS: Summary Hospital Course Hospital Course: ADMITTING DIAGNOSIS: morbid obesity, htn, lvh ? DISCHARGE DIAGNOSIS: same, s/p laparoscopic sleeve gastrectomy ? PAST SURGICAL HISTORY: thymectomy ? PROCEDURE: upper endoscopy, laparoscopic sleeve gastrectomy ? DISCHARGE SUMMARY: ? History of Present Illness: ? The patient is a?33 year-old male with a BMI of?49.2 kg/m2 and associated co- morbidities as described above. The patient had extensive work-up,lost?43.9 lbs preoperatively and was electively scheduled for laparoscopic, possible open sle elaine gastrectomy and gastropexy. Risks and complications of the surgery were discussed with the patient in advance, particularly the possibility of , pulmonary embolism, anastomotic leak, bleeding, bowel injury, GERD, cardiac, renal or pulmonary complications. The patient understood all the risks and was in agreement with the surgical plan. ? Hospital Course: ? The patient underwent an uneventful laparoscopic sleeve gastrectomy with gastropexy on the day of admission. Postoperatively, the patient was transferred to the surgical floor. The patient received IV Acetaminophen and IV dilaudid for pain control. Patient was started on bariatric phase 1 diet POD #0. On postoperative day one, the patient was feeling well without nausea, vomiting, fevers, or tachycardia. The patient had some mild incisional pain and the abdomen was soft. ? On the morning of postoperative day one, the patient was continued on 1 ounce of water or ice every half hour. During the day, the patient did fairly well, having some incisional pain, but able to ambulate adequately and to tolerate liquids well. ? Since the patient is doing well, we decided that the patient was ready to be discharged. The patient was given instructions to follow-up with me next week and to call my office for any fever over 101, persistent abdominal pain, nausea, vomiting, GERD, symptoms of DVT such as calf tenderness, or leg swelling, or pulmonary embolism such as chest pain or shortness of breath. The patient was also instructed to drink 40-60 ounces of liquids per day using the 1-ounce cups. The patient had been given prescriptions for Tylenol for pain, Zofran prn for nausea, and pantoprazole and carafate previously. The patient was encouraged to ambulate and use the incentive spirometer. The patient was allowed to shower, but no baths, and encouraged to stay active at home. All of these instructions were given to the patient personally. All questions were answered and the patient understood all instructions, the instructions were also given to the patient in print. Time Attestation Total time managing care of this patient today: 25 mintues. Discharge Coordination Time (in mins): 25 Quality: Safe Use of Opioids Does Pt have an Active Cancer Diagnosis on the Problem List?: No Quality: Stroke Does the patient have a stroke diagnosis?: No Physical Exam Vital Signs: Vital Signs: Last Vital Signs Temp 97.1 F 12/27/23 05:59 Pulse 50 12/27/23 05:59 Resp 18 12/27/23 05:59 BP 128/69 12/27/23 05:59 Pulse Ox 98 12/27/23 05:59 O2 Del Method Room Air 12/27/23 05:59 BMI result Body Mass Index 41.0 DS: Data Data Completed and Pending Pending studies at discharge: Pending at discharge 12/27/23 09:43 Surgical [PTH] Routine Discharge Plan Discharge Patient Disposition: Home, Self-Care Referrals: Kristal Cheek, WALLPAPER INSTALLER [Primary Care Provider] - 1 Week Discharge Medications: Continued sucralfate 100 mg/mL suspension 10 ml PO BID Qty: 600 2RF Patient Comments: postop meds Rx Instructions: postop meds pantoprazole 40 mg tablet,delayed release (DR/EC) 40 mg PO DAILY Qty: 90 0RF ondansetron 4 mg tablet,disintegrating 4 mg PO Q12H Qty: 20 0RF Rx Instructions: Only take one every 12 hours as needed if you have nausea Held lisinopril-hydrochlorothiazide 20-12.5 mg tablet 1 tab PO QAM Hold Instructions: will need to check daily blood pressure and communicate w Dr Barrera for instruction Discontinued cholecalciferol (vitamin D3) 125 mcg (5,000 unit) capsule 125 mcg PO DAILY 90 Days Qty: 90 2RF Discharge Orders: Discharge Order (Routine); Ordered 12/28/23 Ordered By: Marquez Lopez Activity on Discharge: No heavy lifting Activity Restrictions/Additional Instructions: No tub baths, sex or returning to work until discussed at first post op appointment. No exercise, alcohol, tobacco or illegal drug use. Continue to use incentive spirometer hourly while awake. Walk in home for 5- 10 minutes every 2 hours during the first week. Follow all instructions in the bariatric handbook and call with any questions.Discharge Instructions 1. Please call your doctor or come back to the emergency room should any new symptoms arise. 2. You will receive a courtesy call from [facility] 24-48 hours after discharge. 3. Activity: abstain from alcohol, practice limited stair climbing, no bending, no driving, no exercise, no illicit substances, no lifting, no sex, no tub bath, no work. 4. Diet: continue as discussed with Dr. Barrera. 5. Dressing Change/Wound Care: Your incision is covered by clear bandages and gu aze underneath. If the area is tender, you may apply an ice pack for short intervals (no more than 20 minutes on, followed by at least 20 minutes off). Do not apply heat. Do not use creams, lotions, or topical antibiotics unless instructed to do so by your surgeon. These can cause infection or allergic reaction. 6. Call your doctor if: - Your temperature exceeds 101.5 F - You experience excessive pain or swelling - You have an unexpected reaction to medication - You have excessive bleeding - You experience continued vomiting/nausea - Your incision begins to separate - Your incision shows signs of infection such as increased redness, swelling, excessive pain, heat, or drainage (light blood or clear fluid is normal) 7. General instructions: No lifting greater than 5 lbs for 1 week and not more than 20lbs the next 3?weeks. No driving until seen at the office in 5-7 days after surgery. If you do not move your bowels in the next 2 days, please tell?Dr. Barrera. Please walk around your home every hour or two to prevent blood clots from forming in your legs. You do not need to wake from sleeping to walk. Please sleep in a bed or couch to prevent kinking at the hips and knees. Please take your incentive spirometer (your lung huller operator) home with you and use it for the next few days to prevent pneumonia. You may shower, no hot tubs, baths or swimming pools.?Please follow the post op diet instructions you are?given by Dr Barrera? and text me daily at 5-6pm for an update.?If you have any issues or concerns or questions please communicate this to him via text.? The Celebrate shaduane have all of the bariatric vitamins you need if you consume these shakes. If you are drinking other protein shakes, you will need to purchase the Celebrate multivitamins and calcium that are available in the hospital gift shop on the first floor of the [facility].??Do not take anything without first discussing with Dr Barrera. Please make sure you are consuming at least 40 ounces of fluids per day starting the?day AFTER your discharge from the hospital. Always drink 1-2 ml per minute using the 5ml?syringe. If you drink faster you may experience?bloating,?gas pain, burping, nausea or heartburn. In that case please slow down your pace and use the syringe to?understand better the?proper?pace and volume of drinking. Do not hesitate to contact the office with any questions at . The patient's medical history has been reviewed and they are considered low risk for post op DVT and therefore DVT prophylaxis is not considered necessary. Travel after surgery was reviewed. The patient has not disclosed any travel plans during the first 30 days after surgery and they have been advised that within the first 30 days after surgery any bus, plane, train or car travel over 2 hours in duration is contraindicated due to the possibility of developing blood clots from immobility. Any travel, needs to include periods of ambulation of 10 minutes in duration every 2 hours.? The patient was instructed to discuss any plans for travel during this period with their bariatric surgeon. Print Language: Kyrgyz
[2023-12-27] MEDS: HYDROmorphone HCl 0.5 MG/0.5 ML SYRINGE 0.25 MG IVPUSH ×6 (10:43→20:37)
[2023-12-27 10:52] LABS: Hematocrit 47.9 % (42.0-52.0); Hemoglobin 15.6 g/dl (14.0-18.0)
[2023-12-27 11:08] LABS: Anion Gap 12 (12-20); Blood Urea Nitrogen 13 mg/dL (9-16); Calcium 8.9 mg/dL (8.4-10.2); Carbon Dioxide 26 mmol/L (22-29); Chloride 103 mmol/L (96-108); Creatinine Clr Calc Pharmacy 187.9; Estimated Glomerular Filt Rate > 60; Glucose Random 128 mg/dL (60-115); Potassium 3.6 mmol/L (3.3-5.1); Sodium 137 mmol/L (135-145)
[2023-12-27] MEDS: fentaNYL citrate/PF 100 MCG/2 ML VIAL 25 MCG IVPUSH ×4 (11:22→11:37)
--- NOTE | 2023-12-27 13:06 | PC.NURSE ---
Pt refusing PO Medications for BP
[2023-12-27] MEDS: Lactated Ringers 1,000 ML 150 ML IVCONT ×2 (13:12→20:25)
[2023-12-27] MEDS: Acetaminophen 1,000 MG/100 ML PIGGYBACK 16.7 MG IV ×2 (14:30→20:40)
--- NOTE | 2023-12-27 16:36 | PC.NURSE ---
Pt needs to void, states at this time he does not feel the urge to void. Will re-assess before 1800.
--- NOTE | 2023-12-27 17:49 | PC.NURSE ---
Pt voided at this time, approx 350cc
[2023-12-27] MEDS: Famotidine/PF 20 MG/2 ML VIAL IVPUSH (20:39)
[2023-12-28] MEDS: Acetaminophen 1,000 MG/100 ML PIGGYBACK 16.7 MG IV (01:29)
[2023-12-28 03:19] VITALS: BP 168/78; PULSE 60; RESP 18; TEMP 36.8; O2SAT 96
[2023-12-28] MEDS: HYDROmorphone HCl 0.5 MG/0.5 ML SYRINGE 0.25 MG IVPUSH ×2 (04:20→08:26)
[2023-12-28] MEDS: Lactated Ringers 1,000 ML 150 ML IVCONT (04:21)
[2023-12-28 06:51] LABS: MANUAL DIFF FLAG NO
[2023-12-28] MEDS: 0.9 % Sodium Chloride Flush 3 ML SYRINGE IVFLUSH (07:05)
[2023-12-28] MEDS: lisinopriL 20 MG TABLET PO (07:05)
[2023-12-28] MEDS: Famotidine/PF 20 MG/2 ML VIAL IVPUSH (07:05)
[2023-12-28] MEDS: hydroCHLOROthiazide 12.5 MG TABLET PO (07:05)
--- NOTE | 2023-12-28 07:10 | PC.NURSE ---
pt req to pause IVF
[2023-12-28 07:11] VITALS: BP 164/72; PULSE 54; RESP 18; TEMP 36.4; O2SAT 95
[2023-12-28 07:21] LABS: Anion Gap 14 (12-20); Blood Urea Nitrogen 11 mg/dL (9-16); Carbon Dioxide 26 mmol/L (22-29); Chloride 102 mmol/L (96-108); Creatinine Clr Calc Pharmacy 217.1; Estimated Glomerular Filt Rate > 60; Glucose Random 99 mg/dL (60-115); Potassium 3.7 mmol/L (3.3-5.1); Sodium 138 mmol/L (135-145)
[2023-12-28 07:32] LABS: Basophils Percent Auto 0.1 % (0-2); Eosinophils Percent Auto 0.1 % (0-4); Hematocrit 46.2 % (42.0-52.0); Hemoglobin 14.7 g/dl (14.0-18.0); Imm Gran Abs Auto 0.04 X10*3/uL (0.00-0.03); Imm Gran Pct Auto 0.4 % (0.0-0.4); Lymphocytes Absolute Auto 1.5 X10*3/uL (1.2-4.9); Lymphocytes Percent Auto 14.7 % (20-40); Mean Corpuscular HGB Conc 31.8 g/dl (31.0-36.0); Mean Corpuscular Hemoglobin 25.7 pg (27.0-33.0); Mean Corpuscular Volume 80.6 fL (80.0-98.0); Mean Platelet Volume 11.8 fL (9.4-12.4); Monocytes Absolute Auto 0.9 X10*3/uL (0.1-1.2); Monocytes Percent Auto 8.6 % (2-11); Neutrophils Absolute Auto 7.5 x10*3/uL (2.0-8.3); Neutrophils Percent Auto 76.1 % (45-73); Platelet Count 215 X10*3/uL (160-400); Red Blood Count 5.73 X10*6/uL (4.60-5.80); Red Cell Distribution Width 13.2 % (11.0-16.0); White Blood Count 9.9 X10*3/uL (4.8-10.8)
--- NOTE | 2023-12-28 08:51 | MHC.CM.PN ---
CM MET WITH PT AT BEDSIDE. PT LIVES WITH OTHERS. INDEPENDENT AND EMPLOYED F/T. +HCP PCP DR. LEE DP: PT HAS BEEN MEDICALLY CLEARED FOR DC HOME, NO SERVICES. FAMILY WILL TRANSPORT HOME
--- NOTE | 2023-12-28 08:58 | PC.NURSE ---
Discharge Note: Pt understand discharge, no questions at this time, will follow up with provider. IV removed, intact. Plan to have GF come pick patient up.
--- NOTE | 2023-12-28 12:27 | HO.POSTANES ---
Post Anesthesia Evaluation Post Anesthesia Evaluation Date of Service: 12/28/23 Vital Signs: Vital Signs Temp Pulse Resp BP Pulse Ox O2 Del Method 12/28/23 07:11 97.5 F 54 18 164/72 H 95 Room Air 12/28/23 03:19 98.3 F 60 18 168/78 H 96 Room Air Anesthesia: General Endotracheal-GETA Mental Status: Awake Pain Control: Satisfactory Nausea/Vomiting: None Hydration: Adequate Anesthesia-Related Issues: No Anes. Related Issues
== END 2023-12-28 09:33 | disposition home or self-care (01) ==
LOC: HO.SSS 10:19 → HO.S3 10:52
PROVIDERS: Physician Assistant Surgical; PCP Nurse Practitioner Primary Care; Visit Provider Surgery
PROC: (CPT 43845; principal; 2023-12-27 07:30)
DX: E66.01 Morbid (severe) obesity due to excess calories (principal); Z68.42 Body mass index [BMI] 45.0-49.9, adult; Q43.3 Congenital malformations of intestinal fixation; K74.00 Hepatic fibrosis, unspecified; K76.0 Fatty (change of) liver, not elsewhere classified; I51.7 Cardiomegaly; I11.0 Hypertensive heart disease with heart failure; R94.31 Abnormal electrocardiogram [ECG] [EKG]; R01.1 Cardiac murmur, unspecified; M54.9 Dorsalgia, unspecified; J45.909 Unspecified asthma, uncomplicated; Z79.899 Other long term (current) drug therapy; Z98.890 Other specified postprocedural states
CPT/HCPCS: 43775; 43659; 49329; 36415; 80048; 80053; 80061; 82306; 82607; 82728; 83036; 83540; 84425; 84443; 84590; 84630; 85014; 85018; 85025; 85610; 85730; 86140; 86850; 86900; 86901; 88304; 88305; 88307; 88342; A4649; C9088; C9145; J0131; J0690; J1100; J1170; J1596; J2250; J2405; J2704; J2795; J3010; J7120

== ENCOUNTER → 2023-12-27 05:51 | Outpatient (BNV) | payer OTHER, SELFPAY | PROVIDERS: PCP Nurse Practitioner Primary Care; Visit Provider Surgery | DX: E66.01 Morbid (severe) obesity due to excess calories (principal); Z68.41 Body mass index [BMI] 40.0-44.9, adult; Q43.3 Congenital malformations of intestinal fixation | CPT/HCPCS: 43659; 43775; 99024; 99499 ==

== ENCOUNTER 2024-01-01 10:26 | Outpatient (AMB) | payer OTHER, SELFPAY ==
--- NOTE | 2024-01-01 10:39 | A.OFFVIS_ITS ---
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 He is 5 days status post sleeve gastrectomy performed on 12/27/2023. Tolerating 2 celebrate 4 in 1 shakes with 1 scoop each and approximately 25 oz of fluid per day. Positive bowel movement. No complaints of pain. [facility] Medical History (Updated 12/27/23 @ 10:22 by Mika Barrera MD) Back pain Asthma Murmur HTN (hypertension) Surgical History (Updated 01/01/24 @ 10:53 by Francia San CMA) S/P laparoscopic sleeve gastrectomy H/O heart surgery Family History Mother Diabetes Hypertension Thyroid cancer Father No problems noted. Daughter Asthma Son No problems noted. Son No problems noted. 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 Original weight on 07/30/2023 was 373 pounds and op weight was 49.2 pounds. Be sure to text Dr Barrera exactly 1 week after surgery your weight from your home scale so he can adjust your meal plan. Continue meal plan until f/u linn Zayas in 2 weeks May shower, no submersion in bath for another week Continue abdominal binder with activity and exercise for the next 2 weeks. Exercise prior to surgery was stationary bike, may resume No abdominal exercises for 6 weeks post operatively Will be emailed link to post op video for review Reminded of the pace of drinking, 2 mL per minute, 1 oz/15 min.
[2024-01-01 11:01] VITALS: BP 142/81; PULSE 60; TEMP 36.9; O2SAT 97; BMI 39.2
== END 2024-01-01 11:03 | disposition home or self-care (01) ==
PROVIDERS: PCP Nurse Practitioner Primary Care; Visit Provider Physician Assistant Surgical
DX: Z98.84 Bariatric surgery status (principal)
CPT/HCPCS: 99024

== ENCOUNTER → 2024-01-01 10:26 | Outpatient (BNVA) | payer OTHER, SELFPAY | PROVIDERS: PCP Nurse Practitioner Primary Care; Visit Provider Physician Assistant Surgical ==

== ENCOUNTER 2024-01-22 10:26 | Outpatient (AMB) | payer OTHER, SELFPAY ==
--- NOTE | 2024-01-22 10:27 | MHC.OFFVISWM ---
VS Expanded 01/22/24 10:35 BP 147/86 H Blood Pressure Location Rt brachial Blood Pressure Position Sitting Pulse 91 Pulse Source Pulse Oximeter Temp 96.6 F L Temperature Source Tympanic Pulse Oximetry 96 Oxygen Delivery Method Room Air Height 6 ft 1 in Weight 289 lb 9.6 oz BMI 38.2 Body Fat % 34.6 Body Fat Mass 100.0 Fat Free Mass 189.4 Visceral Fat Rating 17.0 Body Water % 47.3 Body Water Mass 137.0 Muscle Mass/Score 180.2 Basal Metabolic Rate/Score 2,650 Intake Visit Reasons: (OV) PO LSG 12/27/23 Safety Representative Required: No Allergies No Known Allergies Allergy (Verified 01/22/24 10:50) Medication List - Last Reconciled 01/22/24 by JOSUE Rider lisinopril-hydrochlorothiazide 20-12.5 mg 1 tab PO QAM pantoprazole 40 mg PO DAILY sucralfate 10 mL PO BID HPI Comments Details: This?a?33?yo male who is s/p LSG without hiatal hernia repair on?12/27/2023. Presents for 1 month post op visit. Weight today is 289.6 pounds, with a BMI of 38.2. There has been a 80.4 pound weight loss,(initial weight 370 pounds) since starting the program on 07/30/2023 reflecting a 21.7 % total body weight loss and a weight loss of 39.5 pounds since surgery (operative weight 329.1 pounds) reflecting a 12 % TBWL since surgery. No complaints of nausea, emesis, abdominal pain or reflux. Reports infrequent but normal bowel movements every 3-4 days. He states that last he had hurt his right knee using the leg press machine at the gym. He is taken off from the gym for the last 5 days with improvement in his knee pain. He additionally reports regarding his blood pressure that he is taking 1/2 tablet of his combination pill Zestoretic daily. He states that he does not like the celebrate protein bar and has not been doing that over the last week or so. Present meal plan includes: celebrate 4 in 1 2 scoops 8-10, 12-2 celebrate rebuild 2 scoops 5-7pm celebrate protein bar 8-11 pm (not doing due to not liking the bar) Drinking 32 oz water ? Exercise routine includes: 400-550 saranya on elliptical/bike 7 days PFS Medical History Pre-op evaluation Abnormal EKG Alcohol abuse H. pylori infection Back pain Asthma Murmur HTN (hypertension) Surgical History S/P laparoscopic sleeve gastrectomy H/O heart surgery Family History Mother Diabetes Hypertension Thyroid cancer Father No problems noted. Daughter Asthma Son No problems noted. Son No problems noted. 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 If he does not like the zone perfect bar he may try and aloha bar. If he does not like that either, he will text me and we will adjust accordingly with additional shakes. Return to the gym, restarting slowly, stretching before and after exercises. Return to the office in 1 month.
[2024-01-22 10:35] VITALS: BP 147/86; PULSE 91; TEMP 35.9; O2SAT 96; BMI 38.2
== END 2024-01-22 10:58 | disposition home or self-care (01) ==
PROVIDERS: PCP Nurse Practitioner Primary Care; Visit Provider Physician Assistant Surgical
DX: E66.9 Obesity, unspecified (principal)
CPT/HCPCS: 99024

== ENCOUNTER → 2024-01-22 10:26 | Outpatient (BNVA) | payer OTHER, SELFPAY | PROVIDERS: PCP Nurse Practitioner Primary Care; Visit Provider Physician Assistant Surgical ==

== ENCOUNTER 2024-02-25 08:22 | Outpatient (AMB) | payer OTHER, SELFPAY ==
--- NOTE | 2024-02-25 08:29 | MHC.OFFVISWM ---
VS Expanded 02/25/24 08:38 BP 159/92 H Blood Pressure Location Rt brachial Blood Pressure Position Sitting Pulse 56 Pulse Source Pulse Oximeter Temp 97.5 F Temperature Source Temporal Artery Scan Pulse Oximetry 96 Oxygen Delivery Method Room Air Height 6 ft 1 in Weight 272 lb 9.6 oz BMI 36.0 Body Fat % 35.5 Body Fat Mass 96.8 Fat Free Mass 175.8 Visceral Fat Rating 8.0 Body Water % 46.2 Body Water Mass 125.8 Muscle Mass/Score 166.8 Basal Metabolic Rate/Score 2,446 Intake Visit Reasons: (OV) PO LSG 12/27/23 Allergies No Known Allergies Allergy (Verified 02/25/24 08:33) HPI Comments Details: This?a?33?yo male who is s/p LSG without hiatal hernia repair on?12/27/2023. Presents for 2 month post op visit. Weight today is 272.6 pounds, with a BMI of 36. There has been a 97.4 pound weight loss,(initial weight 370 pounds) since starting the program on 07/30/2023 reflecting a 26.3 % total body weight loss and a weight loss of 56.5 pounds since surgery (operative weight 329.1 pounds) reflecting a 17.1 % TBWL since surgery. No complaints of nausea, emesis, abdominal pain or reflux. Reports infrequent but normal bowel movements every 3-4 days. He states that last he had hurt his right knee using the leg press machine at the gym. He has been checking his blood pressure at home with readings in the 130s to 140s and has not been taking the lisinopril/hydrochlorothiazide. Reports that he feels great and has no symptomatic complaints of lightheadedness. His only issue is that he has been required to work 12 hour shifts, 5 days a week, and this has negatively impacted his ability to go to the gym. Will give him a note to work 8 hour shifts so he may be able to do the required exercise to lose weight He is told he is required to go to the gym 5 days per week and burn a minimum of 400 calories per session. He has not been doing the bar as he doesn't like them Present meal plan includes: celebrate 4 in 1 2 scoops 8-10, 12-2 in 12 oz almond milk celebrate rebuild 2 scoops 5-7pm 12 oz almond milk ZP bar 8-11 pm Drinking 80 oz water ? Exercise routine includes: none in 3 weeks, previously 400-550 saranya on elliptical/bike 7 days PFSH Medical History Pre-op evaluation Abnormal EKG Alcohol abuse H. pylori infection Back pain Asthma Murmur HTN (hypertension) Surgical History S/P laparoscopic sleeve gastrectomy H/O heart surgery Family History Mother Diabetes Hypertension Thyroid cancer Father No problems noted. Daughter Asthma Son No problems noted. Son No problems noted. 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 celebrate 4 in 1 2 scoops 8-10, 12-2 in 12 oz almond milk celebrate rebuild 2 scoops 5-7pm 12 oz almond milk For forks protein, 2 forks cooked vegetables or Amharic yogurt 8-11 pm I have given him a note to require work 8 hour shifts which will allow him time to go to the gym for the required exercise to participate in the post bariatric surgery plan. We will have him return to the office in approximately 1 month.
[2024-02-25 08:38] VITALS: BP 159/92; PULSE 56; TEMP 36.4; O2SAT 96; BMI 36.0
== END 2024-02-25 09:03 | disposition home or self-care (01) ==
PROVIDERS: PCP Nurse Practitioner Primary Care; Visit Provider Physician Assistant Surgical
DX: E66.9 Obesity, unspecified (principal)
CPT/HCPCS: 99024

== ENCOUNTER → 2024-02-25 08:22 | Outpatient (BNVA) | payer OTHER, SELFPAY | PROVIDERS: PCP Nurse Practitioner Primary Care; Visit Provider Physician Assistant Surgical ==

== ENCOUNTER 2024-03-31 11:30 | Outpatient (AMB) | payer OTHER, SELFPAY ==
[2024-03-31 10:48] VITALS: BMI 35.0
--- NOTE | 2024-03-31 10:48 | A.OFFVIS_ITS ---
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 Presents for 3 month post op visit. Weight today is 265.4 pounds, with a BMI of 35. There has been a 104.6 pound weight loss,(initial weight 370 pounds) since starting the program on 07/30/2023 reflecting a 28.2 % total body weight loss and a weight loss of 63.7 pounds since surgery (operative weight 329.1 pounds) reflecting a 19.3 % TBWL since surgery. No complaints of nausea, emesis, abdominal pain or reflux. Reports infrequent but normal bowel movements every 3- 4 days. He has been doing well with the meal plans although does feel slightly full with the shake at 5-7, otherwise he wants to keep the meal plan the same. He has returned to exercise now that his leg is healed. Present meal plan includes: celebrate 4 in 1 2 scoops 8-10, 12-2 in 12 oz almond milk celebrate rebuild 2 scoops 5-7pm 12 oz almond milk 4 forks protein, 2 forks cooked vegetables or Tristanian yogurt 8-11 pm Drinking 80 oz water ? Exercise routine includes: 400-550 saranya on elliptical 4 days [facility] Medical History Pre-op evaluation Abnormal EKG Alcohol abuse H. pylori infection Back pain Asthma Murmur HTN (hypertension) Surgical History S/P laparoscopic sleeve gastrectomy H/O heart surgery Family History Mother Diabetes Hypertension Thyroid cancer Father No problems noted. Daughter Asthma Son No problems noted. Son No problems noted. 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 Telehealth Telehealth Telehealth Platform: Telephone Location of provider rendering services: practice address Location of patient: address on file Patient Identification confirmed using: Name, : Yes Telehealth method: voice only Patient verbally consented to treatment: Yes Patient verbally consented to billing insurance company: Yes Patient informed of any privacy concerns related to visit: Yes Minutes spent on Phone/Video with Pt.: 12 Assessment & Plan Assessment & Plan (1) S/P laparoscopic sleeve gastrectomy: Code(s): Z98.84 - Bariatric surgery status Category: Medical Plan: Overall, doing very well. We will adjust his meal plans slightly per his request: celebrate 4 in 1 2 scoops 8-10, 12-2 in 12 oz almond milk celebrate rebuild 1 scoop 5-7pm 12 oz almond milk 4 forks protein, 2 forks cooked vegetables or Tristanian yogurt 8-11 pm Recommend continued exercise. He will return to the office in 4 weeks.
== END 2024-03-31 12:09 | disposition home or self-care (01) ==
LOC: HO.HBS 12:09
PROVIDERS: PCP Nurse Practitioner Primary Care; Visit Provider Physician Assistant Surgical
DX: E66.9 Obesity, unspecified (principal); Z68.35 Body mass index [BMI] 35.0-35.9, adult; Z90.3 Acquired absence of stomach [part of]; Z98.84 Bariatric surgery status
CPT/HCPCS: 99213

== ENCOUNTER → 2024-03-31 11:30 | Outpatient (BNVA) | payer OTHER, SELFPAY | PROVIDERS: PCP Nurse Practitioner Primary Care; Visit Provider Physician Assistant Surgical | DX: Z98.84 Bariatric surgery status (principal) ==

== ENCOUNTER 2024-05-05 10:29 | Outpatient (AMB) | payer OTHER, SELFPAY ==
--- NOTE | 2024-05-05 10:31 | MHC.OFFVISWM ---
VS Expanded 05/05/24 10:37 BP 172/84 H Blood Pressure Location Rt brachial Blood Pressure Position Sitting Pulse 50 Pulse Source Pulse Oximeter Temp 97.0 F Temperature Source Tympanic Pulse Oximetry 95 Oxygen Delivery Method Room Air Height 6 ft 1 in Weight 263 lb 4.8 oz BMI 34.7 Body Fat % 29.0 Body Fat Mass 76.2 Fat Free Mass 187.0 Visceral Fat Rating 13.0 Body Water % 52.1 Body Water Mass 137.2 Muscle Mass/Score 178.0 Basal Metabolic Rate/Score 2,574 Intake Visit Reasons: (OV) PO LSG 12/27/23 Splitter Machine Required: No Allergies No Known Allergies Allergy (Verified 05/05/24 10:31) Medication List - Last Reconciled 05/05/24 by JOSUE Rider No Known Home Meds HPI Comments Details: This?a?33?yo male who is s/p LSG without hiatal hernia repair on?12/27/2023. Presents for 4 month post op visit. Weight today is 263.4 pounds, with a BMI of 34.7. There has been a 106.6 pound weight loss,(initial weight 370 pounds) since starting the program on 07/30/2023 reflecting a 28.4 % total body weight loss and a weight loss of 65.7 pounds since surgery (operative weight 329.1 pounds) reflecting a 19.5 % TBWL since surgery. No complaints of nausea, emesis, abdominal pain or reflux. Reports infrequent but normal bowel movements every 3-4 days. He has just returned from a week of camping and he was unable to follow the plans. Present meal plan includes: celebrate 4 in 1 2 scoops 8-10, 12-2 in 12 oz almond milk celebrate rebuild 1 scoop 5-7pm 12 oz almond milk 4 forks protein, 2 forks cooked vegetables or Yoruba yogurt 8-11 pm Drinking 80 oz water ? Exercise routine includes: running outside at [facility] 3.5 miles, daily 400-500 saranya on elliptical 5 days [facility] Medical History Pre-op evaluation Abnormal EKG Alcohol abuse H. pylori infection Back pain Asthma Murmur HTN (hypertension) Surgical History S/P laparoscopic sleeve gastrectomy H/O heart surgery Family History Mother Diabetes Hypertension Thyroid cancer Father No problems noted. Daughter Asthma Son No problems noted. Son No problems noted. 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 He has now returned to his meal plan which we will continue. He was encouraged to continue his exercise routine, increasing to possibly 6 days if he is able. Plan for return to clinic as scheduled. Encouraged to text weekly with questions and his weight is.
[2024-05-05 10:37] VITALS: BP 172/84; PULSE 50; TEMP 36.1; O2SAT 95; BMI 34.7
== END 2024-05-05 10:49 | disposition home or self-care (01) ==
PROVIDERS: PCP Nurse Practitioner Primary Care; Visit Provider Physician Assistant Surgical
DX: E66.9 Obesity, unspecified (principal); Z68.34 Body mass index [BMI] 34.0-34.9, adult; Z90.3 Acquired absence of stomach [part of]; Z98.84 Bariatric surgery status
CPT/HCPCS: 99213

== ENCOUNTER → 2024-05-05 10:29 | Outpatient (BNVA) | payer OTHER, SELFPAY | PROVIDERS: PCP Nurse Practitioner Primary Care; Visit Provider Physician Assistant Surgical ==

== ENCOUNTER 2024-06-30 09:47 | Outpatient (AMB) | payer OTHER, SELFPAY ==
--- NOTE | 2024-06-30 09:49 | A.OFFVIS_ITS ---
VS Expanded 06/30/24 09:57 BP 143/80 H Blood Pressure Location Rt brachial Blood Pressure Position Sitting Pulse 53 Pulse Source Pulse Oximeter Temp 97.6 F Temperature Source Temporal Artery Scan Pulse Oximetry 97 Oxygen Delivery Method Room Air Height 6 ft 1 in Weight 251 lb 3.2 oz BMI 33.1 Body Fat % 28.8 Body Fat Mass 72.4 Fat Free Mass 178.8 Visceral Fat Rating 12.0 Body Water % 51.0 Body Water Mass 128.0 Muscle Mass/Score 170.0 Basal Metabolic Rate/Score 2,449 Intake Visit Reasons: (OV) PO LSG 12/27/23 Special Events Fundraiser Required: No Allergies No Known Allergies Allergy (Verified 06/30/24 09:50) Medication List - Last Reconciled 06/30/24 by JOSUE Rider acetaminophen 500 mg PO Q6H PRN amoxicillin 500 mg PO Q8H benzocaine 10% 1 appl mucous membrane BID PRN HPI Comments Details: This?a?33?yo male who is s/p LSG without hiatal hernia repair on?12/27/2023. Presents for 6 month post op visit. Weight today is 251.2 pounds, with a BMI of 33.1. There has been a 118.8 pound weight loss,(initial weight 370 pounds) since starting the program on 07/30/2023 reflecting a 32.1 % total body weight loss and a weight loss of 77.9 pounds since surgery (operative weight 329.1 pounds) reflecting a 23.6 % TBWL since surgery. No complaints of nausea, emesis, abdominal pain or reflux. Reports infrequent but normal bowel movements every 3-4 days. He states his initial goal was 250 pounds. He was drinking a lot of regular gatorade. Present meal plan includes: celebrate 4 in 1 2 scoops 8-10, 12-2 in 12 oz almond milk celebrate rebuild 1 scoop 5-7pm 12 oz almond milk 4 forks protein, 2 forks cooked vegetables or Occitan yogurt 8-11 pm Drinking 80 oz water ? Exercise routine includes: running outside at [facility] 4-5miles, daily treadmill/elliptical 7 days Any post op complications: none AUBREE: never DM: never HTN: resolved Hyperlipidemia: never GERD:?0-5 scale ??0 = no symptoms ??1 = symptoms noticeable but not bothersome 2 =symptoms bothersome but not daily ? 3 = symptoms bothersome and daily 4 = symptoms affect daily activities 5 = symptoms are incapacitating, unable to do daily activities ? How bad is the heartburn: 0 ? Heartburn while lying down: 0 ? Heartburn when standing up: 0 ? Heartburn after meals: 0 ? Does heartburn change your diet: 0 ? Does heartburn wake you up from sleep: 0 ? Do you have difficulty swallowin ? Do you have pain with swallowin ? If you take medicine for your reflux, does this affect your daily life: 0 Satisfaction with present condition - satisfied or not satisfied: mostly satisfied [facility] Medical History Pre-op evaluation Abnormal EKG Alcohol abuse H. pylori infection Back pain Asthma Murmur HTN (hypertension) Surgical History S/P laparoscopic sleeve gastrectomy H/O heart surgery Family History Mother Diabetes Hypertension Thyroid cancer Father No problems noted. Daughter Asthma Son No problems noted. Son No problems noted. 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 Physical Exam Vital Signs: Last Vital Signs Temp 97.6 F 06/30/24 09:57 Pulse 53 06/30/24 09:57 BP 143/80 H 06/30/24 09:57 Pulse Ox 97 06/30/24 09:57 Oxygen Delivery Method Room Air 06/30/24 09:57 BMI result Body Mass Index 33.1 Const General: cooperative and no acute distress Orientation/consciousness: patient oriented x3 Resp Effort & Inspection: normal respiratory effort Auscultation: clear to auscultation bilaterally Cardio Rate: regular rate Rhythm: regular rhythm GI Inspection: Yes normal to inspection and Yes incision (well healed) Palpation (GI): Soft to palpation and no masses Neuro General: patient oriented x3 Assessment & Plan Assessment & Plan (1) S/P laparoscopic sleeve gastrectomy: Code(s): Z98.84 - Bariatric surgery status Category: Surgical Plan: Discussed the importance of avoiding fruit juice such as Gatorade. He will continue exercising as he has been doing as he is very consistent with this. Follow the meal plan as recommended. He is satisfied with the meal plan and does not wish to change at this time. We will check six-month postop labs. Encouraged to text weekly and with any questions or concerns. Return to clinic 4 weeks. Orders: Orders 2 Lipid Panel Today E66.9 - Obesity, unspecified, I10 - Essential (primary) hypertension, K74.00 - Hepatic fibrosis, unspecified, K76.0 - Fatty (change of) liver, not elsewhere classified, Z98.84 - Bariatric surgery status IRON PROFILE Today E66.9 - Obesity, unspecified, I10 - Essential (primary) hypertension, K74.00 - Hepatic fibrosis, unspecified, K76.0 - Fatty (change of) liver, not elsewhere classified, Z98.84 - Bariatric surgery status Complete Blood Count Auto Diff Today E66.9 - Obesity, unspecified, I10 - Es sential (primary) hypertension, K74.00 - Hepatic fibrosis, unspecified, K76.0 - Fatty (change of) liver, not elsewhere classified, Z98.84 - Bariatric surgery status Zinc Today E66.9 - Obesity, unspecified, I10 - Essential (primary) hypertension, K74.00 - Hepatic fibrosis, unspecified, K76.0 - Fatty (change of) liver, not elsewhere classified, Z98.84 - Bariatric surgery status C Reactive Protein Today E66.9 - Obesity, unspecified, I10 - Essential (primary) hypertension, K74.00 - Hepatic fibrosis, unspecified, K76.0 - Fatty (change of) liver, not elsewhere classified, Z98.84 - Bariatric surgery status TSH reflex Free T4 Today E66.9 - Obesity, unspecified, I10 - Essential (primary) hypertension, K74.00 - Hepatic fibrosis, unspecified, K76.0 - Fatty (change of) liver, not elsewhere classified, Z98.84 - Bariatric surgery status Insulin Today E66.9 - Obesity, unspecified, I10 - Essential (primary) hypertension, K74.00 - Hepatic fibrosis, unspecified, K76.0 - Fatty (change of) liver, not elsewhere classified, Z98.84 - Bariatric surgery status Vitamin B12 and Folate Today E66.9 - Obesity, unspecified, I10 - Essential (primary) hypertension, K74.00 - Hepatic fibrosis, unspecified, K76.0 - Fatty (change of) liver, not elsewhere classified, Z98.84 - Bariatric surgery status Vitamin B1 Today E66.9 - Obesity, unspecified, I10 - Essential (primary) hypertension, K74.00 - Hepatic fibrosis, unspecified, K76.0 - Fatty (change of) liver, not elsewhere classified, Z98.84 - Bariatric surgery status Vitamin A Today E66.9 - Obesity, unspecified, I10 - Essential (primary) hypertension, K74.00 - Hepatic fibrosis, unspecified, K76.0 - Fatty (change of) liver, not elsewhere classified, Z98.84 - Bariatric surgery status Ferritin Today E66.9 - Obesity, unspecified, I10 - Essential (primary) hypertension, K74.00 - Hepatic fibrosis, unspecified, K76.0 - Fatty (change of) liver, not elsewhere classified, Z98.84 - Bariatric surgery status PTHI Today E66.9 - Obesity, unspecified, I10 - Essential (primary) hypertension, K74.00 - Hepatic fibrosis, unspecified, K76.0 - Fatty (change of) liver, not elsewhere classified, Z98.84 - Bariatric surgery status Vitamin D 25-OH Total Today E66.9 - Obesity, unspecified, I10 - Essential (primary) hypertension, K74.00 - Hepatic fibrosis, unspecified, K76.0 - Fatty (change of) liver, not elsewhere classified, Z98.84 - Bariatric surgery status Hemoglobin A1c Today E66.9 - Obesity, unspecified, I10 - Essential (primary) hypertension, K74.00 - Hepatic fibrosis, unspecified, K76.0 - Fatty (change of) liver, not elsewhere classified, Z98.84 - Bariatric surgery status
[2024-06-30 09:57] VITALS: BP 143/80; PULSE 53; TEMP 36.4; O2SAT 97; BMI 33.1
== END 2024-06-30 10:26 | disposition home or self-care (01) ==
PROVIDERS: PCP Nurse Practitioner Primary Care; Visit Provider Physician Assistant Surgical
DX: E66.811 Obesity, class 1 (principal); Z68.33 Body mass index [BMI] 33.0-33.9, adult; Z90.3 Acquired absence of stomach [part of]; Z98.84 Bariatric surgery status
CPT/HCPCS: 99214

== ENCOUNTER → 2024-06-30 09:47 | Outpatient (BNVA) | payer OTHER, SELFPAY | PROVIDERS: PCP Nurse Practitioner Primary Care; Visit Provider Physician Assistant Surgical ==

== ENCOUNTER 2024-08-11 10:30 | Outpatient (AMB) | payer OTHER, SELFPAY ==
[2024-08-11 10:23] VITALS: BMI 32.1
--- NOTE | 2024-08-11 10:23 | MHC.OFFVISWM ---
VS Expanded 08/11/24 10:23 Height 6 ft 1 in Weight 243 lb 9 oz BMI 32.1 Body Fat % 38.1 Fat Free Mass 150.9 Visceral Fat Rating 12 Body Water % 42.4 Muscle Mass/Score 141.8 Basal Metabolic Rate/Score 1,870 Intake Visit Reasons: (TV) PO LSG 12/27/23 Joiner Required: No Allergies No Known Allergies Allergy (Verified 06/30/24 09:50) Medication List - Last Reconciled 08/11/24 by JOSUE Rider acetaminophen 500 mg PO Q6H PRN benzocaine 10% 1 appl mucous membrane BID PRN HPI Comments Details: This?a?34?yo male who is s/p LSG without hiatal hernia repair on?12/27/2023. Presents for 7.5 month post op visit. Weight today is 243.9 pounds, with a BMI of 32.1. There has been a 126.1 pound weight loss,(initial weight 370 pounds) since starting the program on 07/30/2023 reflecting a 34 % total body weight loss and a weight loss of 85.2 pounds since surgery (operative weight 329.1 pounds) reflecting a 25.8 % TBWL since surgery. No complaints of nausea, emesis, abdominal pain or reflux. Reports infrequent, hard bowel movements every 3-4 days. He states his initial goal was 250 pounds. He states that things are going well. He does not want to change his meal plan. Present meal plan includes: celebrate 4 in 1 2 scoops 8-10, 12-2 in 12 oz almond milk celebrate rebuild 1 scoop 5-7pm 12 oz almond milk 4 forks protein, 2 forks cooked vegetables or Belgian yogurt 8-11 pm Drinking 80 oz water ? Exercise routine includes: elliptical at gym 7 days 600-700 saranya treadmill at home [facility] Medical History Pre-op evaluation Abnormal EKG Alcohol abuse H. pylori infection Back pain Asthma Murmur HTN (hypertension) Surgical History S/P laparoscopic sleeve gastrectomy H/O heart surgery Family History Mother Diabetes Hypertension Thyroid cancer Father No problems noted. Daughter Asthma Son No problems noted. Son No problems noted. 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 Wishes to continue his current meal plan. Continue exercise as he is able. Return to the office in 1 month. Encouraged to get his labs done which were ordered last month (2) Constipation: Code(s): K59.00 - Constipation, unspecified Category: Medical Plan: Add senna 2 at HS Medications: New sennosides (senna) 17.2 mg (2 x 8.6 mg) PO BEDTIME 90 days PRN 180 tabs 0RF constipation
== END 2024-08-11 10:45 | disposition home or self-care (01) ==
LOC: HO.HBS 10:39
PROVIDERS: PCP Nurse Practitioner Primary Care; Visit Provider Physician Assistant Surgical
DX: K59.00 Constipation, unspecified (principal); E66.09 Other obesity due to excess calories; Z68.32 Body mass index [BMI] 32.0-32.9, adult; Z98.84 Bariatric surgery status
CPT/HCPCS: 99213

== ENCOUNTER → 2024-08-11 10:30 | Outpatient (BNVA) | payer OTHER, SELFPAY | PROVIDERS: PCP Nurse Practitioner Primary Care; Visit Provider Physician Assistant Surgical | DX: E66.9 Obesity, unspecified (principal); Z98.84 Bariatric surgery status; K74.00 Hepatic fibrosis, unspecified; K76.0 Fatty (change of) liver, not elsewhere classified; I10 Essential (primary) hypertension ==

== ENCOUNTER 2024-09-15 10:30 | Outpatient (AMB) | payer OTHER, SELFPAY ==
--- NOTE | 2024-09-15 09:29 | A.OFFVIS_ITS ---
VS Expanded 09/15/24 09:30 Height 6 ft 1 in Weight 247 lb 9 oz BMI 32.7 Body Fat % 38.9 Fat Free Mass 151.4 Visceral Fat Rating 13 Body Water % 41.9 Muscle Mass/Score 142.3 Basal Metabolic Rate/Score 1,888 Intake Visit Reasons: (TV) PO LSG 12/27/23 Allergies No Known Allergies Allergy (Verified 06/30/24 09:50) Medication List - Last Reconciled 09/15/24 by JOSUE Rider acetaminophen 500 mg PO Q6H PRN benzocaine 10% 1 appl mucous membrane BID PRN sennosides (senna) 17.2 mg (2 x 8.6 mg) PO BEDTIME PRN 90 days HPI Comments Details: This?a?34?yo male who is s/p LSG without hiatal hernia repair on?12/27/2023. Presents for 7.5 month post op visit. Weight today is 247.9 pounds, with a BMI of 32.7. There has been a 122.1 pound weight loss,(initial weight 370 pounds) since starting the program on 07/30/2023 reflecting a 33.4 % total body weight loss and a weight loss of 81.2 pounds since surgery (operative weight 329.1 pounds) reflecting a 25.2 % TBWL since surgery. No complaints of nausea, emesis, abdominal pain or reflux. Reports infrequent, hard bowel movements every 3-4 days. He states his initial goal was 250 pounds. He states that things are going well, but he did gain weight over the holidays. He does not want to change his meal plan. Present meal plan includes: celebrate 4 in 1 2 scoops 8-10, 12-2 in 12 oz almond milk celebrate rebuild 1 scoop 5-7pm 12 oz almond milk 4 forks protein, 2 forks cooked vegetables or Japanese yogurt 8-11 pm Drinking 80 oz water ? Exercise routine includes: elliptical at gym 7 days 600-700 saranya treadmill at home [facility] Medical History Pre-op evaluation Abnormal EKG Alcohol abuse H. pylori infection Back pain Asthma Murmur HTN (hypertension) Surgical History S/P laparoscopic sleeve gastrectomy H/O heart surgery Family History Mother Diabetes Hypertension Thyroid cancer Father No problems noted. Daughter Asthma Son No problems noted. Son No problems noted. 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 Physical Exam Vital Signs: BMI result Body Mass Index 32.7 Telehealth Telehealth Telehealth Platform: Telephone Location of provider rendering services: practice address Location of patient: address on file Patient Identification confirmed using: Name, : Yes Telehealth method: voice only Patient verbally consented to treatment: Yes Patient verbally consented to billing insurance company: Yes Patient informed of any privacy concerns related to visit: Yes Minutes spent on Phone/Video with Pt.: 12 Assessment & Plan Assessment & Plan (1) S/P laparoscopic sleeve gastrectomy: Code(s): Z98.84 - Bariatric surgery status Category: Surgical Plan: Patient had multiple her dietary indiscretions over the holiday season. He recognize the error in his ways. He is now back on a strict meal plan and has returned to the gym. We will arrange for a follow-up appointment in 1 month. Encouraged to text weight weekly
[2024-09-15 09:30] VITALS: BMI 32.7
== END 2024-09-15 10:43 | disposition home or self-care (01) ==
LOC: HO.HBS 10:42
PROVIDERS: PCP Nurse Practitioner Primary Care; Visit Provider Physician Assistant Surgical
DX: E66.3 Overweight (principal); Z68.32 Body mass index [BMI] 32.0-32.9, adult; Z90.3 Acquired absence of stomach [part of]; Z98.84 Bariatric surgery status
CPT/HCPCS: 98967

== ENCOUNTER 2024-10-13 11:57 | Outpatient (REF) | payer OTHER, SELFPAY ==
[2024-10-13 12:14] LABS: MANUAL DIFF FLAG NO
[2024-10-13 12:24] LABS: Basophils Absolute Auto 0.1 X10*3/uL (0.0-0.2); Basophils Percent Auto 1.1 % (0-2); Eosinophils Absolute Auto 0.1 X10*3/uL (0.0-0.4); Eosinophils Percent Auto 1.3 % (0-4); Hematocrit 49.2 % (42.0-52.0); Hemoglobin 16.1 g/dl (14.0-18.0); Imm Gran Abs Auto 0.01 X10*3/uL (0.00-0.03); Imm Gran Pct Auto 0.2 % (0.0-0.4); Lymphocytes Absolute Auto 1.4 X10*3/uL (1.2-4.9); Lymphocytes Percent Auto 29.2 % (20-40); Mean Corpuscular HGB Conc 32.7 g/dl (31.0-36.0); Mean Corpuscular Hemoglobin 26.4 pg (27.0-33.0); Mean Corpuscular Volume 80.8 fL (80.0-98.0); Mean Platelet Volume 10.2 fL (9.4-12.4); Monocytes Absolute Auto 0.3 X10*3/uL (0.1-1.2); Neutrophils Absolute Auto 2.9 x10*3/uL (2.0-8.3); Neutrophils Percent Auto 62.2 % (45-73); Platelet Count 200 X10*3/uL (160-400); Red Blood Count 6.09 X10*6/uL (4.60-5.80); Red Cell Distribution Width 13.2 % (11.0-16.0); White Blood Count 4.7 X10*3/uL (4.8-10.8)
[2024-10-13 12:43] LABS: Estimated Average Glucose 97 mg/dL; Hemoglobin A1C 131.5903 umol/L; Total Hemoglobin (HGBA1C) 4234.4924 umol/L
[2024-10-13 13:04] LABS: Alanine Aminotransferase 31 U/L (0-40); Albumin Level 4.3 g/dL (3.5-5.0); Alkaline Phosphatase 103 U/L (39-117); Anion Gap 9 (12-20); Aspartate Amino Transferase 22 U/L (5-37); Bilirubin Total 0.7 mg/dL (0.0-1.0); Blood Urea Nitrogen 8 mg/dL (9-16); C Reactive Protein < 0.10 mg/dL (< or = 0.50); Carbon Dioxide 26 mmol/L (22-29); Chloride 108 mmol/L (96-108); Cholesterol 139 mg/dL (<200); Estimated Glomerular Filt Rate > 60; Glucose Random 90 mg/dL (60-115); HDL Cholesterol 45 mg/dL (>40); Iron 100 mcg/dL (45-160); LDL Cholesterol Calculated 84 mg/dL (<100); Percent Iron Saturation 35 % (15-50); Potassium 3.9 mmol/L (3.3-5.1); Sodium 139 mmol/L (135-145); Total Iron Binding Capacity 289 mcg/dL (228-428); Total Protein 6.9 g/dL (6.5-8.0); Triglycerides 54 mg/dL (<150); Unsaturated Iron Binding 189 ug/dL
[2024-10-13 13:22] LABS: Ferritin 205 ng/mL (20-250); TSH reflex Free T4 0.43 uIU/mL (0.32-4.0); Vitamin D 25-OH Total 17.2 ng/mL (>30)
--- OUTSIDE RECORDS SUMMARY | 2024-10-13 13:23 | XMS_ITS | Encounter Summary ---
Author Organization [facility] Address [address] [place] [address] Care Team Providers Care Manager School Name Role Phone Kristal Cheek Primary Care Provider [phone] Reason for Visit * Reason Onset Date Comments Med Refill 05/05/2024 Encounter Details Date Type Department Care Team ([facility] st Contact Info) Description 05/05/2024 Telephone [facility] MEDICINE [address] [place], [place] [phone] Kristal Cheek ANP [address] [place], [place] [phone] Med Refill Social History Tobacco Use Types Packs/Day Years Used Date Smoking Tobacco: Never Passive Smoke Exposure: Never Smokeless Tobacco: Never Alcohol Use Standard Drinks/Week Comments Yes 0 (1 standard drink = 0.6 oz pur e alcohol) Housing Stability Answer Date Recorded What is your housing situation today? I have syl [place] 07/23/[address] you li ve. Do you have problems with any of the following? None of the above 07/23/2023 Food Insecurity Answer Date Recorded Within the past 12 months, y ou worried that your food would run out before you got money to buy more: Never True 06/25/2023 Within the past 12 months,th e food you bought just didn't last and you didn't have enough money to get more: Never True Transportation Answer Date Recorded In the past 12 months, has l ack of transportation kept you from medical appts, meetings, work or from getting things needed for daily living? No 06/25/2023 Utilities Answer Date Recorded In the past 12 months, has t he electric, gas, oil or water company threatened to shut off services in your home? No 06/25/2023 Depression Answer Date Recorded Patient Health Questionnaire-2 Score 0 06/25/2023 Sex and Gender Information Value Date Recorded Sex Assigned at Male 07/10/2022 10:16 AM EDT Legal Sex Male 10:16 AM EDT Gender Identity Male 07/10/2022 10:16 AM EDT Sexual Orientation Straight 07/10/2022 10 :16 AM EDT documented as of this encounter Miscellaneous Notes * Telephone Encounter - eRnée Jansen - 05/05/2024 11:28 AM EDT TC from pt requesting medication refill. Medications needing refill : traMADol (Ultram) 50 MG tablet To be sent to: [facility] - [place], [place] - [address] [place] [address] documented in this encounter Plan of Treatment Upcoming Encounters Date Type Department Care Team (Late st Contact Info) Description 10/29/2024 9:00 AM EST Clinical Support [facility] MED & PEDS [address] [place] [address] Shantal Moncada, RN [address] [place] [address] documented as of this encounter Visit Diagnoses Not on filedocumented in this encounter Care Teams Manager School Relationship Specialty Start Date End Date Kristal Cheek ANP [address] [facility] [place] [address] PCP - General Family Medicine 10/26/20 documented as of this encounter
--- OUTSIDE RECORDS SUMMARY | 2024-10-13 13:23 | XMS_ITS | Encounter Summary ---
Author Organization [facility] Address [address] [place] [address] [address] [place] [address] Care Team Providers Care Water Filterer Name Role Phone Kristal Cheek Primary Care Provider [phone] Reason for Visit * Reason Comments Med Refill Encounter Details Date Type Department Care Team (Late st Contact Info) Description 10/16/2022 Refill [facility] MED & PEDS [address] [place] [address] Kristal Cheek ANP [address] [place] [address] Social History Tobacco Use Types Packs/Day Years Used Date Smoking Tobacco: Never Assessed Sex and Gender Information Value Date Recorded Sex Assigned at Male 07/10/2022 10:16 AM EDT Legal Sex Male 10:16 AM EDT Gender Identity Male 07/10/2022 10:16 AM EDT Sexual Orientation Straight 07/10/2022 10 :16 AM EDT documented as of this encounter Plan of Treatment Upcoming Encounters Date Type Department Care Team (Late st Contact Info) Description 10/29/2024 9:00 AM EST Clinical Support [facility] MED & PEDS [address] [place] [address] Shantal Moncada, RN [address] [place] [address] documented as of this encounter Visit Diagnoses Not on filedocumented in this encounter Care Teams Water Filterer Relationship Specialty Start Date End Date Kristal Cheek ANP [address] [place] [address] PCP - General Family Medicine 10/26/20 documented as of this encounter
--- OUTSIDE RECORDS SUMMARY | 2024-10-13 13:23 | XMS_ITS | Encounter Summary ---
Author Organization [facility] Address [address] [place] [address] Care Team Providers Care Hide Shaker Name Role Phone Kristal Cheek Primary Care Provider Reason for Visit * Reason Comments Med Refill Encounter Details Date Type Department Care Team (Late st Contact Info) Description 01/02/2023 Refill [facility] MED & PEDS [address] [place], [place] [phone] Kristal Cheek ANP [address] [place], [place] [phone] Pain Social History Tobacco Use Types Packs/Day Years Used Date Smoking Tobacco: Never Assessed Sex and Gender Information Value Date Recorded Sex Assigned at Male 07/10/2022 10:16 AM EDT Legal Sex Male 10:16 AM EDT Gender Identity Male 07/10/2022 10:16 AM EDT Sexual Orientation Straight 07/10/2022 10 :16 AM EDT documented as of this encounter Miscellaneous Notes * Telephone Encounter - Shantal Sinclair RN - 01/09/2023 3:44 PM EDT TC to pt regarding message below, no answer. Lower qty of Tramadol sent last 2 times. It was refilled by covering provider on 11/03/22. Is it ok to send a full qty of 120 st the next refill? documented in this encounter Plan of Treatment Upcoming Encounters Date Type Department Care Team (Late st Contact Info) Description 10/29/2024 9:00 AM EST Clinical Support [facility] MED & PEDS [address] [place] [address] Shantal Moncada, RN [address] [place] [address] documented as of this encounter Visit Diagnoses Diagnosis Pain Generalized pain documented in this encounter Care Teams Hide Shaker Relationship Specialty Start Date End Date Kristal Cheek ANP [address] [place] [address] PCP - General Family Medicine 10/26/20 documented as of this encounter
--- OUTSIDE RECORDS SUMMARY | 2024-10-13 13:23 | XMS_ITS | Encounter Summary ---
Author Organization [facility] Address [address] 7t [place] [address] Care Team Providers Care It Network Architect Name Role Phone Kristal Cheek Primary Care Provider [phone] Reason for Visit * Reason Onset Date Comments Med Refill 08/25/2024 Encounter Details Date Type Department Care Team ([facility] st Contact Info) Description 08/25/2024 Refill [facility] [address] [place], [place] [phone] Kristal Cheek ANP [address] [place], [place] [phone] Social History Tobacco Use Types Packs/Day Years Used Date Smoking Tobacco: Never Passive Smoke Exposure: Never Smokeless Tobacco: Never Alcohol Use Standard Drinks/Week Comments Never 0 (1 standard drink = 0.6 oz pur e alcohol) Alcohol Answer Date Recorded Frequency of Alcohol Consumption Not on file 06/26/2024 Average Number of Drinks Not on file 024 Frequency of Binge Drinking Not on file 06/10 Score 0 06/26/2024 Depression Answer Date Recorded Patient Health Questionnaire-9 Score 0 08/25/2024 Patient Health Questionnaire-9 Score 0 08/25/2024 Last PHQ-9: Questionnaire Data Not on file 1 10/26/2023 Housing Stability Answer Date Recorded What is your housing situation today? I have syl moss 08/25/[address] you li ve. Do you have problems with any of the following? None of the above 08/25/2024 Food Insecurity Answer Date Recorded Within the past 12 months, y ou worried that your food would run out before you got money to buy more: Never True 08/25/2024 Within the past 12 months,th e food you bought just didn't last and you didn't have enough money to get more: Never True Transportation Answer Date Recorded In the past 12 months, has l ack of transportation kept you from medical appts, meetings, work or from getting things needed for daily living? No 08/25/2024 Utilities Answer Date Recorded In the past 12 months, has t he electric, gas, oil or water company threatened to shut off services in your home? No 08/25/2024 Depression Answer Date Recorded Patient Health Questionnaire-2 Score 0 08/25/2024 Internet Access Answer Date Recorded Internet Access Q1 Yes 08/25/2024 Internet Access Q2 Not on file 08/25/2024 Sex and Gender Information Value Date Recorded Sex Assigned at Male 07/10/2022 10:16 AM EDT Legal Sex Male 10:16 AM EDT Gender Identity Male 07/10/2022 10:16 AM EDT Sexual Orientation Straight 07/10/2022 10 :16 AM EDT documented as of this encounter Plan of Treatment Upcoming Encounters Date Type Department Care Team (Late st Contact Info) Description 10/29/2024 9:00 AM EST Clinical Support [facility] [address] [place] [address] Shantal Moncada, RN 505 [place] [address] documented as of this encounter Visit Diagnoses Not on filedocumented in this encounter Additional Health Concerns Assessment Noted Time PHQ-9 Depression Total Score: 0 08/25/20 24 12:04 PM EST documented as of this encounter Care Teams It Network Architect Relationship Specialty Start Date End Date Kristal Cheek ANP [address] [place] [address] PCP - General Family Medicine 10/26/20 documented as of this encounter
--- OUTSIDE RECORDS SUMMARY | 2024-10-13 13:23 | XMS_ITS | Encounter Summary ---
Author Organization [employer] Address [address] 7t [place] [address] Care Team Providers Care Manager Paper Name Role Phone Kristal Cheek Primary Care Provider [phone] Reason for Visit * Reason Onset Date Comments November recall 09/23/2024 Encounter Details Date Type Department Care Team ([facility] st Contact Info) Description 09/23/2024 Telephone [facility] MED[facility]INE 230 [place] [address] Samantha Portillo MA November recall Social History Tobacco Use Types Packs/Day Years [...] encounter Miscellaneous Notes * Telephone Encounter - Samantha Portillo MA - 09/23/2024 12:34 PM EST T/C to pt to schedule a recall f/u htn. No answer LVM to call clinic to schedule appt. Mailed recall letter. documented in this encounter Plan of Treatment Upcoming Encounters Date Type Department Care Team ([facility] st Contact Info) Description 10/29/2024 9:00 AM EST Clinical Support [facility] 505 [place] [address] Shantal Moncada, GABRIELE 505 [place] [address] documented as of this encounter Visit Diagnoses Not on filedocumented in this encounter Additional Health Concerns Assessment Noted Time PHQ-9 Depression Total Score: 0 08/25/20 24 12:04 PM EST documented as of this encounter Care Teams Manager Paper Relationship Specialty Start Date End Date Kristal Cheek ANP [address] [place] [address] PCP - General Family Medicine 10/26/20 documented as of this encounter
--- OUTSIDE RECORDS SUMMARY | 2024-10-13 13:23 | XMS_ITS | Clinical Summary ---
Author Organization [employer] Address [address] 7t [place] [address] Care Team Providers Care Early Childhood Associate Name Role Phone Kristal Cheek Primary Care Provider [phone] Allergies No known active allergies Medications Blood Pressure kitIndications:B enign essential hypertension 1 kit in the morning. 1 kit 06/25/20 Active Blood Pressure Monitor misc USE TO CHECK BLOOD PRESSURE IN THE MORNING 06/25/20 Active ibuprofen 800 MG tablet Take 400 mg by mouth every 6 (six) hours if needed for mild pain. Active lisinopril-hydro CHLOROthiazide 20-12.5 MG tabletIndication s:Hypertensive urgency TAKE 1 TABLET BY MOUTH EVERY MORNING 90 tablet 1 08/11/20 24 Active traMADol (Ultram) 50 MG tabletIndication s:Chronic bilateral low back pain with right-sided sciatica Take 1 tablet (50 mg) by mouth every 8 (eight) hours if needed for severe pain for up to 28 days. 84 tablet 09/22/19 25 025 Active traMADol (Ultram) 50 MG tabletIndication s:Chronic bilateral low back pain with right-sided sciatica Take 1 tablet (50 mg) by mouth every 8 (eight) hours if needed for severe pain for up to 28 days. 84 tablet 08/25/20 24 025 Discontinued(Re order (will not trigger notification to Pharmacy)) Active Problems Problem Noted Date Diagnosed Date MCC (current) use of opiate analgesic 08/10 Overview (08/25/2024): On tramadol 50 mg up to 3 times daily for chronic back pain. Cannot take NSAIDs due to bariatric status. Benign essential hypertension 01/20/2016 Assessment & Plan (01/17/2024 12:25 PM EDT): -Elevated in office today, although pt reports did not take BP med this morning. Home BP readings usually within goal -Cont lisinopril-hydrochlorothiazide 20-12.5mg daily, follow up if readings above goal at home. Chronic low back pain 01/20/2016 06/25/2023 Morbid obesity 01/20/2016 06/25/2023 Encounters Date Type Department Care Team Description 10/13/2024 Orders Only GENERIC EXTERNAL DATA DEPARTMENT Provider, Generic External Data 10/07/[address] [address] Samantha Portillo MA PA fot Tramadol 10/03/2024 Refill [facility] [address] [place] [address] Kristal Cheek ANP Chronic bilateral low back pain with right-sided sciatica 09/23/[address] [address] Samantha Portillo MA March recall 09/22/2024 Refill [facility] [address] [place] [address] Kristal Cheek ANP Chronic bilateral low back pain with right-sided sciatica 09/18/2024 9:00 AM EST Clinical Support [facility] [address] [place] [address] Shantal Moncada RN Chronic bilateral low back pain with right-sided sciatica 09/18/2024 Travel 09/12/[address] [address] Carmen Dela Cruz, planning rn 08/26/[address] [address] Kristal Cheek ANP Appointment Request 08/25/2024 11:15 AM EST Office Visit [address] [address] Kristal Cheek ANP Benign essential hypertension (Primary Dx); Chronic bilateral low back pain with right-sided sciatica; MCC (current) use of opiate analgesic 08/25/2024 Travel 08/25/2024 Refill [facility] [address] [place] [address] Shantal Moncada, punch press operator bilateral low back pain with right-sided sciatica (Primary Dx) 08/25/2024 Refill [facility] MED[facility] [address] [place] [address] Kristal Cheek ANP 08/13/2024 Telephone [facility] [address] [place] [address] Shantal Moncada RN 08/13/2024 Telephone [facility] [address] [place] [address] Shantal Moncada RN 08/11/2024 Refill [facility] [address] [place] [address] Kristal Cheek ANP Chronic bilateral low back pain with right-sided sciatica 08/09/2024 Refill [facility] [address] [place] [address] Kristal Cheek ANP Hypertensive urgency 08/09/2024 Refill [facility] [address] [place] [address] Kristal Cheek ANP Chronic bilateral low back pain with right-sided sciatica 07/14/2024 Travel from Last 3 Months Immunizations Name Administration Dates Next Due DTP 08/09/1999, 3,09/27/1990,1988,1988 Hep B, Adolescent or Pediatric 02/11/2001,1999,06/19/2000 Hib (PRP-T) 03/06/1990 Influenza injectable quadriv alent IIV4 with preservative 08/10/2016 Influenza injectable quadriv alent preservative free 07/14/2019 Influenza, IIV3, injectable 05/17/2011,1 ,07/19/2005,1999 Influenza, Split (incl. charity fied surface antigen) 10/17/2012,07/02/2012,08/20/2000 MMR 06/19/2000,01/02/1990 OPV 06/30/1993, 0,05/10/1989,1988 TD (adult), 2 Lf tetanus tox oid, preservative free, adsorbed 06/25/2023,06/19/2000 Tdap 10/17/2012 Family History Medical History Relation Name Comments Cancer Mother Diabetes Mother Heart disease Mother Hypertension Mother Hypertension Sister Relation Name Status Comments Mother Sister Social History Tobacco Use Types Packs/Day Years [...] Orientation Straight 07/10/2022 10 :16 AM EDT Last Filed Vital Signs Vital Sign Reading Time Taken Comments Blood Pressure 148/100 08/25/2024 11:32 AM EST Pulse 62 08/25/2024 11:32 AM EST Temperature 36.3 ??C (97.4 ??F) 08/25/2024 11:[address] Respiratory Rate 16 08/25/2024 11:18 AM EST Oxygen Saturation 99% 08/25/2024 11:18 AM EST Inhaled Oxygen Concentration - - Weight 113 kg (249 lb) 08/25/2024 11:18 AM EST Height 185.4 cm (6' 1 ) 06/26/2024 9:39 AM EDT Body Mass Index 32.85 06/26/2024 9:39 AM EDT Plan of Treatment Upcoming Encounters Date Type Department Care Team (Late st Contact Info) Description 10/29/2024 9:00 AM EST Clinical Support [facility] [address] [place] [address] Shantal Moncada, RN [address] [place] [address] Health Maintenance Due Date Last Done Comments Dental Oral Exam 1988 Dental Prophylaxis 1988 Dental X-Ray: Full Mouth 1988 Family Planning (PISQ) 2003 Pneumococcal Vaccine: Pediatrics (0 to 5 Years) and At-Risk Patients (6 to 49) Years) (1 of 2 - PCV) 2007 Dental X-Ray: Bitewings 07/18/2018 07/17/2017 Influenza Vaccine (#1) 2025 9, 08/10/2016, 10/17/2012, Additional history exists Postponed from 05/11/2024 (Patient Refused) Alcohol/Substance Use Screening 06/26/2025 06/26/2024 COVID-19 Vaccine ( - season) 2025 Postponed from 05/11/2024 (Patient Refused) Depression Screening 08/25/2025 08/25/2024, 12/16/20 24 SDOH Screening 08/25/2025 08/25/2024 Tobacco Screening 08/25/2025 08/25/2024 Lipid Panel 10/13/2029 10/13/2024, 08/13/2023 DTaP/Tdap/Td Vaccines (9 - Td or Tdap) 06/25/2033 06/25/2023, 10/17/2012, 06/19/2000, Additional history exists Zoster Vaccines (1 of 2) 2038 RSV Patients and Patients Aged 60 years or older (1 - 1-dose 75+ series) 2063 HIB Vaccines Completed 03/06/1990 IPV Vaccines Completed 06/30/1993, 02/09, 05/10/1989, Additional history exists Hepatitis B Vaccines Completed 02/11/2001, 08/20/2000, 06/19/2000 HIV Screening Completed 03/31/2024 Hepatitis C Screening Completed 03/31/2024 HPV Vaccines Aged Out No longer eligi ble based on patient's age to complete this topic Hepatitis A Vaccines Aged Out No long er eligible based on patient's age to complete this topic Meningococcal Vaccine Aged Out No vini ivette eligible based on patient's age to complete this topic RSV under 20 months Aged Out No longe r eligible based on patient's age to complete this topic Rotavirus Vaccines Aged Out No longer eligible based on patient's age to complete this topic Procedures Procedure Name Priority Date/Time Associated Diagnosis Comments TSH W/REFLEX TO FT4 Routine 10/13/2024 1 2:13 PM EST VITAMIN D,25-OH,TOTAL,IA Routine 10/13/2024 12:13 PM EST FERRITIN Routine 10/13/2024 12:13 PM EST LIPID PANEL, STANDARD Routine 10/13/2024 12:13 PM EST C-REACTIVE PROTEIN Routine 10/13/2024 12 :13 PM EST IRON AND TOTAL IRON BINDING CAPACITY Routine 10/13/2024 12:13 PM EST HEMOGLOBIN A1C Routine 10/13/2024 12:13 PM EST CBC WITH AUTO DIFFERENTIAL Routine 10/13/2024 12:13 PM EST COMPREHENSIVE METABOLIC PANEL Routine 10/13/2024 12:13 PM EST Benign essential hypertension POCT MIGUELITO-14 URINE DRUG SCREEN Routine 09/18/2024 9:23 AM EST Chronic bilateral low back pain with right-sided sciatica HEPATITIS C ANTIBODY ([facility]) Routine 03/31/2024 HIV ANTIBODY/ANTIGEN ([facility]) Routine 03/31/2024 BITEWING - SINGLE RADIOGRAPHIC IMAGE Routine 07/17/2017 12:00 AM EST from Last 3 Months or Most Recently Relevant to Health Maintenance Results * (ABNORMAL) CBC auto differential (10/13/2024 12:13 PM EST) White Blood Count 4.7(L) 4.8 - 10.8 X10*3/uL [facility] Red Blood Count 6.09(H) 4.60 - 5.80 X10*6/uL [facility] Hemoglobin 16.1 14.0 - 18.0 g/dl [facility] Hematocrit 49.2 42.0 - 52.0 % [facility] Mean Corpuscular Volume 80.8 80.0 - 98.0 fL [facility] Mean Corpuscular Hemoglobin 26.4(L) 27.0 - 33.0 pg [facility] Mean Corpuscular HGB Conc 32.7 31.0 - 36.0 g/dl [facility] Red Cell Distribution Width 13.2 11.0 - 16.0 % [facility] Platelet Count 200 160 - 400 X10*3/uL [facility] Mean Platelet Volume 10.2 9.4 - 12.4 fL [facility] Neutrophils Percent Auto 62.2 45 - 73 % [facility] Imm Gran Pct Auto 0.2 0.0 - 0.4 % [facility] Lymphocytes Percent Auto 29.2 20 - 40 % [facility] Monocytes Percent Auto 6.0 2 - 11 % [facility] Eosinophils Percent Auto 1.3 0 - 4 % [facility] Basophils Percent Auto 1.1 0 - 2 % [facility] NRBC Pct Auto 0.0 0.0 - 0.2 /100WBC [facility] Neutrophils Absolute Auto 2.9 2.0 - 8.3 x10*3/uL [facility] Imm Gran Abs Auto 0.01 0.00 - 0.03 X10*3/uL [facility] Lymphocytes Absolute Auto 1.4 1.2 - 4.9 X10*3/uL [facility] Monocytes Absolute Auto 0.3 0.1 - 1.2 X10*3/uL [facility] Eosinophils Absolute Auto 0.1 0.0 - 0.4 X10*3/uL [facility] Basophils Absolute Auto 0.1 0.0 - 0.2 X10*3/uL [facility] NRBC Abs Auto 0.000 0.0 - 0.012 X10*3/uL [facility] 10/13/2024 12:1 3 PM EST 10/13/2024 12:13 PM EST us Generic External Data Provider LAB BLOOD ORDERAB LES Final Result Performing Organization Address City/State/[facility] Co de Phone Number [facility] [address] [place] [phone] * Hemoglobin A1c (10/13/2024 12:13 PM EST) Hemoglobin A1c 5.0 <6.0 % [facility] Comment:Hemoglobin A1C Refer ence Range Adults: 4.8 - 6.0 % Non diabetic: < 6.0 % Goal: < 7.0 %Additional Action Suggested: > 8.0 %Note: Hemoglobin A1c results are invalid for patients with abnormal amounts of HbF. Blood transfusions may impact the HbA1c concentration in the patient sample. Estimated Average Glucose 97 mg/dL [facility] Comment:eAG = Estimated ave rage glucose which is %A1C expressed asaverage glucose, using the formula of the T6P-YreagvfMhfvwzk Glucose study (ADAG), Diabetes Care, Vol.31,#8,Apr. 2007 10/13/2024 12:1 3 PM EST 10/13/2024 12:13 PM EST us Generic External Data Provider LAB BLOOD ORDERAB LES Final Result [facility] [address] [place] [address] [phone] * POCT MIGUELITO-14 Urine Drug Screen (09/18/2024 9:23 AM EST) Urine Urine specimen obtained by clean catch procedure / Unknown 09/18/2024 9:23 AM EST Narrative Shantal Moncada RN - 09/18/2024 9:23 AM EST Lot# [id number] Exp: 08-16-25 [facility] POINT OF CARE TEST ENTER/EDIT OR DERABLES Final Result * Hepatitis C Antibody ([facility]) (03/31/2024) Hepatitis C Ab Nonreactive Blood 03/31/2024 Result [facility] Historical Provider MD LAB BLOOD ORDERABLES Anastasia l Result * HIV Ab/Ag ([facility]) (03/31/2024) HIV Ag/Ab Nonreactive Blood 03/31/2024 Result [facility] Historical Provider MD LAB BLOOD ORDERABLES Anastasia l Result from Last 3 Months or Most Recently Relevant to Health Maintenance Insurance [facility] , [address] [place] [address] [facility] Care Teams Early Childhood Associate Relationship Specialty Start Date End Date Kristal Cheek ANP [address] [place] [phone] PCP - General Family Medicine 10/26/20
--- OUTSIDE RECORDS SUMMARY | 2024-10-13 13:23 | XMS_ITS | Encounter Summary ---
Author Organization [employer] [facility] Address [address] [place] [address] Care Team Providers Care Sanitary Landfill Operator Name Role Phone Kristal Cheek Primary Care Provider [phone] Reason for Visit * Reason Onset Date Comments Med Refill 04/21/2024 Encounter Details Date Type Department Care Team ([facility] st Contact Info) Description 04/21/2024 Telephone [facility] MEDICINE [address] [place], [place] [phone] Kristal Cheek ANP [address] [place], [place] [phone] Med Refill Social History Tobacco Use Types [...] encounter Miscellaneous Notes * Telephone Encounter - Reema Pedraza - 04/21/2024 3:36 PM EDT TC from pt requesting medication refill. Medications needing refill : traMADol (Ultram) 50 MG tablet To be sent to: [facility] - [place], [place] - [address] [place] [address] Pt also stated per insurance medication can be filled for a month. documented in this encounter Plan of Treatment Upcoming Encounters Date Type Department Care Team (Late st Contact Info) Description 10/29/2024 9:00 AM EST Clinical Support [facility] [address] [place] [address] Shantal Moncada, RN [address] [place] [address] documented as of this encounter Visit Diagnoses Not on filedocumented in this encounter Care Teams Sanitary Landfill Operator Relationship Specialty Start Date End Date Kristal Cheek ANP [address] [place] [address] PCP - General Family Medicine 10/26/20 documented as of this encounter
--- OUTSIDE RECORDS SUMMARY | 2024-10-13 13:23 | XMS_ITS | Encounter Summary ---
Author Organization [employer] Address [address] [place] [address] Care Team Providers Care Surety Bond Agent Name Role Phone Kristal Cheek Primary Care Provider [phone] Reason for Visit * Reason Onset Date Comments Med Refill 09/22/2024 Encounter Details Date Type Department Care Team (Late st Contact Info) Description 09/22/2024 Refill [facility] [address] [place] [address] Kristal Cheek ANP [address] [place] [address] Chronic bilateral low back pain with right-sided sciatica Social History Tobacco Use Types Packs/Day Years [...] Description 10/29/2024 9:00 AM EST Clinical Support [facility] [address] [place] [address] Shantal Moncada, GABRIELE [address] [place] [address] documented as of this encounter Visit Diagnoses Diagnosis Chronic bilateral low back pain with right-sided sciatica documented in this encounter Additional Health Concerns Assessment Noted Time PHQ-9 Depression Total Score: 0 08/25/20 24 12:04 PM EST documented as of this encounter Care Teams Surety Bond Agent Relationship Specialty Start Date End Date Kristal Cheek ANP [address] [place] [address] PCP - General Family Medicine 10/26/20 documented as of this encounter
--- OUTSIDE RECORDS SUMMARY | 2024-10-13 13:23 | XMS_ITS | Encounter Summary ---
Author Organization [employer] [facility] Address [address] [place] [address] Care Team Providers Care Printed Circuit Board Drafter Name Role Phone Kristal Cheek Primary Care Provider [phone] Reason for Visit * Reason Onset Date Comments Nurse Triage 01/16/2024 Encounter Details Date Type Department Care Team ([facility] st Contact Info) Description 01/16/2024 Telephone [facility] MEDICINE [address] [place], [place] [phone] Kristal Cheek ANP [address] [place], [place] [phone] Nurse Triage Social History Tobacco Use Types Packs/Day Years Used Date Smoking Tobacco: Never Smokeless Tobacco: Never Alcohol Use Standard Drinks/Week Comments Yes 0 (1 standard drink = 0.6 oz pur e alcohol) Housing Stability Answer Date Recorded What is your housing situation today? I have sylshan moss 07/23/[address] you [...] encounter Miscellaneous Notes * Telephone Encounter - Avril Hogan - 01/16/2024 1:10 PM EDT Symptom: Knee Pain - Not From Injury Outcome: Schedule an urgent appointment (within 1 hour) or talk to a nurse or provider soon Reason: Trouble walking The caller accepted this outcome documented in this encounter Plan of Treatment Upcoming Encounters Date Type Department Care Team (Late st Contact Info) Description 10/29/2024 9:00 AM EST Clinical Support [facility] [address] [place] [address] Shantal Moncada, GABRIELE [address] [place] [address] documented as of this encounter Visit Diagnoses Not on filedocumented in this encounter Care Teams Printed Circuit Board Drafter Relationship Specialty Start Date End Date Kristal Cheek ANP [address] [place] [phone] PCP - General Family Medicine 10/26/20 documented as of this encounter
--- OUTSIDE RECORDS SUMMARY | 2024-10-13 13:23 | XMS_ITS | Encounter Summary ---
Author Organization [employer] [facility] Address [address] [place] [address] Care Team Providers Care Senior Category Manager Name Role Phone Kristal Cheek Primary Care Provider [phone] Encounter Details Date Type Department Care Team (Latest Contact Info) Description 09/18/2024 Travel Social History Tobacco Use Types Packs/Day Years [...] Description 10/29/2024 9:00 AM EST Clinical Support [facility] [address] [place] [address] Shantal Moncada, RN [address] [place] [address] documented as of this encounter Visit Diagnoses Not on filedocumented in this encounter Additional Health Concerns Assessment Noted Time PHQ-9 Depression Total Score: 0 08/25/20 24 12:04 PM EST documented as of this encounter Care Teams Senior Category Manager Relationship Specialty Start Date End Date Kristal Cheek ANP [address] [place] [address] PCP - General Family Medicine 10/26/20 documented as of this encounter
--- OUTSIDE RECORDS SUMMARY | 2024-10-13 13:23 | XMS_ITS | Encounter Summary ---
Author Organization [employer] Address [address] [place] [address] Care Team Providers Care Fish Trapper Name Role Phone Kristal Cheek Primary Care Provider [phone] Reason for Visit * Reason Onset Date Comments Med Refill 10/03/2024 Durable Medical Equipment 10/03/2024 ANAHI SALAS Request: Tramadol Encounter Details Date Type Department Care Team ([facility] st Contact Info) Description 10/03/2024 Refill [facility] MED & PEDS [address] [place], [place] [phone] Kristal Cheek ANP [address] [place] [address] Chronic bilateral low back pain with right-sided [...] encounter Miscellaneous Notes * Telephone Encounter - Marissa Julien - 10/03/2024 11:27 AM EST PA for Tramadol from [facility] placed on PCP desk for signature. documented in this encounter Plan of Treatment Upcoming Encounters Date Type Department Care Team (Late st Contact Info) Description 10/29/2024 9:00 AM EST Clinical Support [facility] MED & PEDS [address] [place] [address] Shantal Moncada, GABRIELE [address] [place] [address] documented as of this encounter Visit Diagnoses Diagnosis Chronic bilateral low back pain with right-sided sciatica documented in this encounter Additional Health Concerns Assessment Noted Time PHQ-9 Depression Total Score: 0 08/25/20 24 12:04 PM EST documented as of this encounter Care Teams Fish Trapper Relationship Specialty Start Date End Date Kristal Cheek ANP [address] [place] [address] PCP - General Family Medicine 10/26/20 documented as of this encounter
--- OUTSIDE RECORDS SUMMARY | 2024-10-13 13:23 | XMS_ITS | Encounter Summary ---
Author Organization [employer] [facility] Address [address] [place] [address] [address] [place] [address] Care Team Providers Care Carpenter Wooden Tank Erecting Name Role Phone Kristal Cheek Primary Care Provider [phone] Reason for Visit * Reason Comments Med Refill Encounter Details Date Type Department Care Team (Late st Contact Info) Description 11/03/2022 Refill [facility] MED & PEDS [address] [place] [address] Kristal Cheek ANP [address] [place] [address] Social History Tobacco Use Types Packs/Day Years [...] Description 10/29/2024 9:00 AM EST Clinical Support [facility] MED & PEDS [address] [place] [address] Shantal Moncada, RN [address] [place] [address] documented as of this encounter Visit Diagnoses Not on filedocumented in this encounter Care Teams Carpenter Wooden Tank Erecting Relationship Specialty Start Date End Date Kristal Cheek ANP [address] [place] [address] PCP - General Family Medicine 10/26/20 documented as of this encounter
--- OUTSIDE RECORDS SUMMARY | 2024-10-13 13:23 | XMS_ITS | Encounter Summary ---
Author Organization [employer] [facility] Address [address] 7[address] [place] [address] Care Team Providers Care Air Cargo Ground Crew Supervisor Name Role Phone Kristal Cheek Primary Care Provider [phone] Encounter Details Date Type Department Care Team (Late st Contact Info) Description 10/13/2024 Orders Only GENERIC EXTERNAL DATA DEPARTMENT Provider, Generic External Data Social History Tobacco Use Types Packs/Day Years [...] Upcoming Encounters Date Type Department Care Team ([facility] st Contact Info) Description 10/29/2024 9:00 AM EST Clinical Support [facility] MED & PEDS [address] [place] [address] Shantal Moncada RN [address] [place] [address] Pending Results Name Type Priority Associated Diagnoses Date /Time Iron And Total Iron Binding Capacity Lab Routine 10/13/2024 12:1 3 PM EST C-reactive Protein Lab Routine 2024 12:13 PM EST Lipid Panel, Standard Lab Routine 11/2024 12:13 PM EST Ferritin Lab Routine 10/13/2024 12: 13 PM EST Vitamin D, 25-Hydroxy, Total, Immunoassay Lab Routine 10/13/2024 12 :13 PM EST TSH with Reflex to Free T4 Lab Routine 10/13/2024 12:13 PM EST documented as of this encounter Procedures Procedure Name Priority Date/Time Associated Diagnosis Comments VITAMIN D,25-OH,TOTAL,IA Routine 10/13/2024 12:13 PM EST TSH W/REFLEX TO FT4 Routine 10/13/2024 1 2:13 PM EST CBC WITH AUTO DIFFERENTIAL Routine 10/13/2024 12:13 PM EST IRON AND TOTAL IRON BINDING CAPACITY Routine 10/13/2024 12:13 PM EST C-REACTIVE PROTEIN Routine 10/13/2024 12 :13 PM EST HEMOGLOBIN A1C Routine 10/13/2024 12:13 PM EST FERRITIN Routine 10/13/2024 12:13 PM EST LIPID PANEL, STANDARD Routine 10/13/2024 12:13 PM EST documented in this encounter Results * Hemoglobin A1c (10/13/2024 12:13 PM EST) Hemoglobin A1c 5.0 <6.0 % [facility] Comment:Hemoglobin A1C Refer ence Range Adults: 4.8 - 6.0 % Non diabetic: < 6.0 % Goal: < 7.0 %Additional Action Suggested: > 8.0 %Note: Hemoglobin A1c results are invalid for patients with abnormal amounts of HbF. Blood transfusions may impact the HbA1c concentration in the patient sample. Estimated Average Glucose 97 mg/dL [facility] Comment:eAG = Estimated ave rage glucose which is %A1C expressed asaverage glucose, using the formula of the B5H-ZxyfjyyQaycwqb Glucose study (ADAG), Diabetes Care, Vol.31,#8,Apr. 2007 10/13/2024 12:1 3 PM EST 10/13/2024 12:13 PM EST us Generic External Data Provider LAB BLOOD ORDERAB LES Final Result [facility] [address] [place] [phone] * (ABNORMAL) CBC auto differential (10/13/2024 12:13 PM EST) White Blood Count 4.7(L) 4.8 - 10.8 X10*3/uL [facility] Red Blood Count 6.09(H) 4.60 - 5.80 X10*6/uL [facility] Hemoglobin 16.1 14.0 - 18.0 g/dl [facility] Hematocrit 49.2 42.0 - 52.0 % [facility] Mean Corpuscular Volume 80.8 80.0 - 98.0 fL [facility] Mean Corpuscular Hemoglobin 26.4(L) 27.0 - 33.0 pg [facility] Mean Corpuscular HGB Conc 32.7 31.0 - 36.0 g/dl [facility] Red Cell Distribution Width 13.2 11.0 - 16.0 % [facility] Platelet Count 200 160 - 400 X10*3/uL [facility] Mean Platelet Volume 10.2 9.4 - 12.4 fL [facility] Neutrophils Percent Auto 62.2 45 - 73 % [facility] Imm Gran Pct Auto 0.2 0.0 - 0.4 % [facility] Lymphocytes Percent Auto 29.2 20 - 40 % [facility] Monocytes Percent Auto 6.0 2 - 11 % [facility] Eosinophils Percent Auto 1.3 0 - 4 % [facility] Basophils Percent Auto 1.1 0 - 2 % [facility] NRBC Pct Auto 0.0 0.0 - 0.2 /100WBC [facility] Neutrophils Absolute Auto 2.9 2.0 - 8.3 x10*3/uL [facility] Imm Gran Abs Auto 0.01 0.00 - 0.03 X10*3/uL [facility] Lymphocytes Absolute Auto 1.4 1.2 - 4.9 X10*3/uL [facility] Monocytes Absolute Auto 0.3 0.1 - 1.2 X10*3/uL [facility] Eosinophils Absolute Auto 0.1 0.0 - 0.4 X10*3/uL [facility] Basophils Absolute Auto 0.1 0.0 - 0.2 X10*3/uL [facility] NRBC Abs Auto 0.000 0.0 - 0.012 X10*3/uL [facility] 10/13/2024 12:1 3 PM EST 10/13/2024 12:13 PM EST us Generic External Data Provider LAB BLOOD ORDERAB LES Final Result [facility] [address] [place] [address] [phone] documented in this encounter Visit Diagnoses Not on filedocumented in this encounter Additional Health Concerns Assessment Noted Time PHQ-9 Depression Total Score: 0 08/25/20 24 12:04 PM EST documented as of this encounter Care Teams Air Cargo Ground Crew Supervisor Relationship Specialty Start Date End Date Kristal Cheek ANP [address] [place] [address] PCP - General Family Medicine 10/26/20 documented as of this encounter
--- OUTSIDE RECORDS SUMMARY | 2024-10-13 13:23 | XMS_ITS | Encounter Summary ---
Author Organization [employer] Address [address] [place] [address] Care Team Providers Care Sports Management Professor Name Role Phone Kristal Cheek YVONNE Primary Care Provider [phone] Reason for Visit * Reason Comments controlled substance treatment Encounter Details Date Type Department Care Team (Latest Contact Info) Description 09/18/2024 9:00 AM EST Clinical Support [facility] CH[facility] MED & PEDS [address] [place] [address] Shantal Moncada, GABRIELE [address] [place] [address] Chronic bilateral low back pain with right-sided [...] AM EDT documented as of this encounter Progress Notes * Shantal Moncada RN - 09/18/2024 9:00 AM EST S: ASPHALT DISTRIBUTOR OPERATOR initial NV. Prescribed Tramadol 50mg PO q8h PRN. States has been taking as prescribed. Denies nicotine/illicit drugs use. Currently rates pain a 4/10 and states medication is 50% effective at alleviating pain. Current pain site is lower back. ASPHALT DISTRIBUTOR OPERATOR Agreement initiated today. O: ASPHALT DISTRIBUTOR OPERATOR Tier 4. DRUM BARKER OPERATOR verified today. Rx last filled 08/26/24. Pill count not performed as patient states he forgot to bring medication as it is his first visit. Educated about ASPHALT DISTRIBUTOR OPERATOR Agreement rules. Reminded patient to bring all of her pills to ASPHALT DISTRIBUTOR OPERATOR visits. Last PCP visit was 08/25/24. BPI form completed today. Pain severity score of (3.5), activity interference score of (3). Utox performed, negative for all tested substances. As expected. RAEANN 7 screening done, total score 0. Opioid Risk Tool performed, moderate risk. A: ASPHALT DISTRIBUTOR OPERATOR Agreement Initiation: Opioid dependence related to chronic pain. P: Patient to continue taking medication only as prescribed; Next ASPHALT DISTRIBUTOR OPERATOR RV appointment scheduled for 10/29/24 @ 9am. F/U sooner PRN. Patient verbalized understanding and agreed to plan. documented in this encounter Plan of Treatment Upcoming Encounters Date Type Department Care Team (Late st Contact Info) Description 10/29/2024 9:00 AM EST Clinical Support [facility] CH[facility] MED & PEDS [address] [place] [address] Shantal Moncada RN [address] [place] [address] documented as of this encounter Procedures Procedure Name Priority Date/Time Associated Diagnosis Comments POCT MIGUELITO-14 URINE DRUG SCREEN Routine 09/18/2024 9:23 AM EST Chronic bilateral low back pain with right-sided sciatica documented in this encounter Results * POCT MIGUELITO-14 Urine Drug Screen (09/18/2024 9:23 AM EST) Urine Urine specimen obtained by clean catch procedure / Unknown 09/18/2024 9:23 AM EST Narrative Shantal Moncada RN - 09/18/2024 9:23 AM EST Lot# [id number] Exp: 08-16-25 us Kristal RUSSELL POINT OF CARE TEST ENTER/EDIT OR DERABLES Final Result documented in this encounter Visit Diagnoses Diagnosis Chronic bilateral low back pain with right-sided sciatica documented in this encounter Additional Health Concerns Assessment Noted Time PHQ-9 Depression Total Score: 0 08/25/20 24 12:04 PM EST documented as of this encounter Care Teams Sports Management Professor Relationship Specialty Start Date End Date Kristal Cheek ANP [address] [place] [address] PCP - General Family Medicine 10/26/20 documented as of this encounter
--- OUTSIDE RECORDS SUMMARY | 2024-10-13 13:23 | XMS_ITS | Encounter Summary ---
Author Organization [employer] Address [address] [place] [address] Care Team Providers Care Netsuite Consultant Name Role Phone Kristal Cheek Primary Care Provider [phone] Reason for Visit * Reason Comments Med Refill Encounter Details Date Type Department Care Team (Late st Contact Info) Description 05/30/2024 Refill [facility] CH[facility] MED & PEDS [address] [place] [address] Kristal Cheek ANP [address] [place] [address] Chronic bilateral low back pain with right-sided [...] Description 10/29/2024 9:00 AM EST Clinical Support [facility] MED & PEDS [address] [place] [address] Shantal Moncada, GABRIELE [address] [place] [address] documented as of this encounter Visit Diagnoses Diagnosis Chronic bilateral low back pain with right-sided sciatica documented in this encounter Care Teams Netsuite Consultant Relationship Specialty Start Date End Date Kristal Cheek ANP [address] [place] [address] PCP - General Family Medicine 10/26/20 documented as of this encounter
--- OUTSIDE RECORDS SUMMARY | 2024-10-13 13:23 | XMS_ITS | Encounter Summary ---
Author Organization [employer] [facility] Address [address] [place] [address] Care Team Providers Care Scientist Electronics Name Role Phone Kristal Cheek Primary Care Provider [phone] Reason for Visit * Reason Onset Date Comments Med Refill 08/10/2023 Encounter Details Date Type Department Care Team ([facility] st Contact Info) Description 08/10/2023 Refill [facility] MEDICINE [address] [place], [place] [phone] Kristal Cheek ANP [address] [place], [place] [phone] Chronic bilateral low back pain with right-sided sciatica; Pain Social History Tobacco Use Types Packs/Day [...] Description 10/29/2024 9:00 AM EST Clinical Support [facility] MED & PEDS [address] [place] [address] Shantal Moncada, RN [address] [place] [address] documented as of this encounter Visit Diagnoses Diagnosis Chronic bilateral low back pain with right-sided sciatica Pain Generalized pain documented in this encounter Care Teams Scientist Electronics Relationship Specialty Start Date End Date Kristal Cheek ANP [address] [place] [address] PCP - General Family Medicine 10/26/20 documented as of this encounter
--- OUTSIDE RECORDS SUMMARY | 2024-10-13 13:23 | XMS_ITS | Encounter Summary ---
Author Organization [employer] [facility] Address [address] [place] [address] Care Team Providers Care Marketing Sales Manager Name Role Phone Kristal Cheek Primary Care Provider [phone] Reason for Visit * Reason Onset Date Comments Prior Authorization 08/21/2023 Encounter Details Date Type Department Care Team ([facility] st Contact Info) Description 08/21/2023 Telephone [facility] MEDICINE [address] [place] [address] Kristal Cheek ANP [address] [place] [address] Prior Authorization Social History Tobacco Use Types Packs/Day Years [...] encounter Miscellaneous Notes * Telephone Encounter - Marjan Bernadro - 09/04/2023 3:43 PM EST Please see message below and advise if agree with PA. Rx no longer on current med list. Thank you * Telephone Encounter - Omer Bartlett - 09/04/2023 9:12 AM EST Tc from patient calling to request status in regards to message brunilda * Telephone Encounter - Anastacio Saenz - 08/21/2023 11:51 AM EST Tc from pt stating needs a PA for traMADol (Ultram) 50 MG tablet , Operators School Manager confirmed with pharmacy. documented in this encounter Plan of Treatment Upcoming Encounters Date Type Department Care Team (Late st Contact Info) Description 10/29/2024 9:00 AM EST Clinical Support [facility] MED & PEDS [address] [place] [address] Shantal Moncada, GABRIELE [address] [place] [address] documented as of this encounter Visit Diagnoses Not on filedocumented in this encounter Care Teams Marketing Sales Manager Relationship Specialty Start Date End Date Kristal Cheek ANP [address] [place] [address] PCP - General Family Medicine 10/26/20 documented as of this encounter
--- OUTSIDE RECORDS SUMMARY | 2024-10-13 13:23 | XMS_ITS | Encounter Summary ---
Author Organization [employer] [facility] Address [address] [place] [address] Care Team Providers Care Warehouse Order Selector Name Role Phone Kristal Cheek YVONNE Primary Care Provider [phone] Reason for Visit * Reason Onset Date Comments JOSUE fot Tramadol 10/07/2024 Encounter Details Date Type Department Care Team ([facility] st Contact Info) Description 10/07/2024 Telephone [facility] MEDICINE [address] [place] [address] Samantha Portillo MA PA fot Tramadol Social History Tobacco Use Types Packs/Day Years [...] Telephone Encounter - Samantha Portillo MA - 10/07/2024 4:18 PM EST PA for Tramadol signed and faxed to [email or web address] . Confirmation received and sent to scan. If patient calls to check status on above, please advise them to contact Pharmacy . documented in this encounter Plan of Treatment Upcoming Encounters Date Type Department Care Team ([facility] st Contact Info) Description 10/29/2024 9:00 AM EST Clinical Support [facility] MED & PEDS [address] [place] [address] Shantal Moncada, GABRIELE [address] [place] [address] documented as of this encounter Visit Diagnoses Not on filedocumented in this encounter Additional Health Concerns Assessment Noted Time PHQ-9 Depression Total Score: 0 08/25/20 24 12:04 PM EST documented as of this encounter Care Teams Warehouse Order Selector Relationship Specialty Start Date End Date Kristal Cheek ANP [address] [place] [address] PCP - General Family Medicine 10/26/20 documented as of this encounter
--- OUTSIDE RECORDS SUMMARY | 2024-10-13 13:23 | XMS_ITS | Encounter Summary ---
Author Organization [employer] [facility] Address [address] [place] [address] Care Team Providers Care Leather Toggler Name Role Phone Kristal Cheek YVONNE Primary Care Provider Reason for Visit * Reason Comments Med Refill Encounter Details Date Type Department Care Team ([facility] st Contact Info) Description 04/02/2024 Refill [facility] MEDICINE [address] [place], [place] [phone] Suzi Orta MD [address] [place], [place] [phone] Chronic bilateral low back pain with right-sided [...] Description 10/29/2024 9:00 AM EST Clinical Support [facility] MED & PEDS [address] [place] [address] Shantal Moncada, GABRIELE [address] [place] [address] documented as of this encounter Visit Diagnoses Diagnosis Chronic bilateral low back pain with right-sided sciatica documented in this encounter Care Teams Leather Toggler Relationship Specialty Start Date End Date Kristal Cheek ANP [address] [place] [address] PCP - General Family Medicine 10/26/20 documented as of this encounter
[2024-10-13 13:43] LABS: Folate 8.6 ng/mL (> or = 4.0); Vitamin B12 689 pg/mL (200-900)
[2024-10-13 17:24] LABS: Insulin 10 uU/mL (2-29)
[2024-10-16 00:28] LABS: Zinc 71 mcg/dL (60-130)
[2024-10-17 00:48] LABS: Vitamin A 39 mcg/dL (38-98)
[2024-10-22 16:49] LABS: Vitamin B1 14 nmol/L (8-30)
== END 2024-10-13 11:58 | disposition home or self-care (01) ==
LOC: HO.LAB 11:57
PROVIDERS: PCP Nurse Practitioner Primary Care; Visit Provider Physician Assistant Surgical
DX: E66.9 Obesity, unspecified (principal); Z98.84 Bariatric surgery status; K74.00 Hepatic fibrosis, unspecified; I10 Essential (primary) hypertension; K76.0 Fatty (change of) liver, not elsewhere classified; Z13.1 Encounter for screening for diabetes mellitus
CPT/HCPCS: 36415; 80053; 80061; 82306; 82607; 82728; 82746; 83036; 83525; 83540; 84425; 84443; 84590; 84630; 85025; 86140

== ENCOUNTER 2024-10-24 08:59 | Outpatient (AMB) | payer OTHER, SELFPAY ==
--- NOTE | 2024-10-24 08:35 | A.OFFVIS_ITS ---
VS Expanded 10/24/24 08:36 Height 6 ft 1 in Weight 245 lb 4 oz BMI 32.4 Body Fat % 38.4 Fat Free Mass 151 Visceral Fat Rating 13 Body Water % 42.2 Muscle Mass/Score 141.9 Basal Metabolic Rate/Score 1,877 Intake Visit Reasons: (TV) PO LSG 12/27/23 Commercial Green Building Architect Required: No Allergies No Known Allergies Allergy (Verified 06/30/24 09:50) Medication List - Last Reconciled 10/24/24 by JOSUE Rider acetaminophen 500 mg PO Q6H PRN benzocaine 10% 1 appl mucous membrane BID PRN cholecalciferol (vitamin D3) 125 mcg PO DAILY 90 days clotrimazole 1% (Antifungal (clotrimazole)) 1 appl topical BID PRN sennosides (senna) 17.2 mg (2 x 8.6 mg) PO BEDTIME PRN 90 days HPI Comments Details: This?a?34?yo male who is s/p LSG without hiatal hernia repair on?12/27/2023. Presents for 10 month post op visit. Weight today is 245.4 pounds, with a BMI of 32.4. There has been a 124.6 pound weight loss,(initial weight 370 pounds) since starting the program on 07/30/2023 reflecting a 33.6 % total body weight loss and a weight loss of 83.7 pounds since surgery (operative weight 329.1 pounds) reflecting a 25.4 % TBWL since surgery. No complaints of nausea, emesis, abdominal pain or reflux. Reports infrequent, hard bowel movements every 3-4 days. He states his initial goal was 250 pounds. He states that he has been using 2 scoops in the rebuild and doing 6 forks protein and 6 forks veg at his meal forks Heart he states that he has been having a rash underneath the excess skin of his abdomen. Given his extensive weight loss so far, it is not surprising that he has developed a rash. He has been trying to treat this with multiple showers per day and barrier clothing although this has been unsuccessful. He describes the rash as reddened, itchy, it does have a bad odor. And it is somewhat painful. This worsens with increased sweating at the gym which he has been doing most days of the week. We will send in prescription antifungal cream. Present meal plan includes: celebrate 4 in 1 2 scoops 8-10, 12-2 in 12 oz almond milk celebrate rebuild 1 scoop 5-7pm 12 oz almond milk 4 forks protein, 2 forks cooked vegetables or Ethiopian yogurt 8-11 pm Drinking 80 oz water ? Exercise routine includes: elliptical at gym 6 days 400-800 saranya treadmill at home [facility] Medical History Pre-op evaluation Abnormal EKG Alcohol abuse H. pylori infection Back pain Asthma Murmur HTN (hypertension) Surgical History S/P laparoscopic sleeve gastrectomy H/O heart surgery Family History Mother Diabetes Hypertension Thyroid cancer Father No problems noted. Daughter Asthma Son No problems noted. Son No problems noted. 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 Telehealth Platform: Telephone Location of provider rendering services: practice address Location of patient: address on file Patient Identification confirmed using: Name, : Yes Telehealth method: voice only Patient verbally consented to treatment: Yes Patient verbally consented to billing insurance company: Yes Patient informed of any privacy concerns related to visit: Yes Minutes spent on Phone/Video with Pt.: 20 Assessment & Plan Assessment & Plan (1) S/P laparoscopic sleeve gastrectomy: Code(s): Z98.84 - Bariatric surgery status Category: Surgical Plan: Patient was not clear in his meal plan. We will change it accordingly. : celebrate 4 in 1 2 scoops 8-10, 12-2 in 12 oz almond milk Ethiopian yogurt 5-7pm 5 forks protein, 5 forks cooked vegetables 8-11 pm Half cup fresh berries or apple if he wishes Continue exercise as he is doing very well with this. Encouraged to text weight weekly and with any questions or concerns. Return to the office as scheduled for 1 year follow-up. Check labs at that time. (2) Excess skin: Code(s): L98.7 - Excessive and redundant skin and subcutaneous tissue Category: Medical Plan: Patient likely is going to need medically necessary skin removal surgery given his extensive weight loss. He has lost over 120 lb at this point. We will add clotrimazole cream to be used as needed. Medications: New clotrimazole 1% (Antifungal (clotrimazole)) 1 appl topical BID PRN 45 grams 2RF rash
[2024-10-24 08:36] VITALS: BMI 32.4
--- OUTSIDE RECORDS SUMMARY | 2024-10-24 09:24 | XMS_ITS | Encounter Summary ---
Author Organization [employer] [facility] Address [address] [place] [address] Care Team Providers Care Mechanical Cad Drafter Name Role Phone Kristal Cheek Primary Care Provider [phone] Reason for Visit * Reason Onset Date Comments Med Refill 08/25/2024 Encounter Details Date Type Department Care Team ([facility] st Contact Info) Description 08/25/2024 Refill [facility] MED[facility]INE [address] [place], [place] [phone] Kristal Cheek ANP [address] [place], [place] [phone] Social History Tobacco Use Types Packs/Day Years [...] 10/29/2024 9:00 AM EST Clinical Support [facility] MED & PEDS [address] [place] [address] Shantal Moncada, RN [address] [place] [address] documented as of this encounter Visit Diagnoses Not on filedocumented in this encounter Additional Health Concerns Assessment Noted Time PHQ-9 Depression Total Score: 0 08/25/20 24 12:04 PM EST documented as of this encounter Care Teams Mechanical Cad Drafter Relationship Specialty Start Date End Date Kristal Cheek ANP [address] [place] [id number] PCP - General Family Medicine 10/26/20 documented as of this encounter
--- OUTSIDE RECORDS SUMMARY | 2024-10-24 09:24 | XMS_ITS | Encounter Summary ---
Author Organization [facility] Address [address] [place] [address] Care Team Providers Care Die Reamer Name Role Phone Kristal Cheek Primary Care Provider [phone] Reason for Visit * Reason Comments Med Refill Encounter Details Date Type Department Care Team (Late st Contact Info) Description 01/02/2023 Refill [facility] MED & PEDS [address] [place], [place] [phone] Kristal Cheek ANP [address] [place], [place] [phone] Pain Social History Tobacco Use Types Packs/Day [...] Description 10/29/2024 9:00 AM EST Clinical Support [facility] MED & PEDS [address] [place] [address] Shantal Moncada, RN [address] [place] [address] documented as of this encounter Visit Diagnoses Diagnosis Pain Generalized pain documented in this encounter Care Teams Die Reamer Relationship Specialty Start Date End Date Kristal Cheek ANP [address] [place] [address] PCP - General Family Medicine 10/26/20 documented as of this encounter
--- OUTSIDE RECORDS SUMMARY | 2024-10-24 09:24 | XMS_ITS | Encounter Summary ---
Author Organization [employer] [facility] Address [address] [place] [address] Care Team Providers Care Laundry Bag Punch Operator Name Role Phone Kristal Cheek YVONNE Primary Care Provider [phone] Reason for Visit * Reason Onset Date Comments JOSUE fot Tramadol 10/07/2024 Encounter Details Date Type Department Care Team ([facility] st Contact Info) Description 10/07/2024 Telephone [facility] [address] [place] [address] Samantha Portillo MA PA fot Tramadol Social [...] PA for Tramadol signed and faxed to [employer] . Confirmation received and sent to scan. If patient calls to check status on above, please advise them to contact Pharmacy . documented in this encounter Plan of Treatment Upcoming Encounters Date Type Department Care Team ([facility] st Contact Info) Description 10/29/2024 9:00 AM EST Clinical Support [facility] MED & PEDS [address] [place] [address] Shantal Moncada, GABRIELE [address] [place] [address] documented as of this encounter Visit Diagnoses Not on filedocumented in this encounter Additional Health Concerns Assessment Noted Time PHQ-9 Depression Total Score: 0 08/25/20 24 12:04 PM EST documented as of this encounter Care Teams Laundry Bag Punch Operator Relationship Specialty Start Date End Date Kristal Cheek ANP [address] [place] [address] PCP - General Family Medicine 10/26/20 documented as of this encounter
--- OUTSIDE RECORDS SUMMARY | 2024-10-24 09:24 | XMS_ITS | Encounter Summary ---
Author Organization [employer] [facility] Address [address] [place] [address] Care Team Providers Care Journalist Name Role Phone Kristal Cheek Primary Care Provider [phone] Reason for Visit * Reason Onset Date Comments Prior Authorization 08/21/2023 Encounter Details Date Type Department Care Team ([facility] st Contact Info) Description 08/21/2023 Telephone [facility]INE [address] [place] [address] Kristal Cheek ANP [address] [place] [address] Prior Authorization Social History Tobacco Use Types [...] Miscellaneous Notes * Telephone Encounter - Marjan Bernardo - 09/04/2023 3:43 PM EST Please see [...] for traMADol (Ultram) 50 MG tablet , Resource Analyst confirmed with pharmacy. documented in this encounter Plan of Treatment Upcoming Encounters Date Type Department Care Team (Late st Contact Info) Description 10/29/2024 9:00 AM EST Clinical Support [facility] MED & PEDS [address] [place] [address] Shantal Moncada, GABRIELE 505 [place] [address] documented as of this encounter Visit Diagnoses Not on filedocumented in this encounter Care Teams Journalist Relationship Specialty Start Date End Date Kristal Cheek ANP [address] [place] [id number] PCP - General Family Medicine 10/26/20 documented as of this encounter
--- OUTSIDE RECORDS SUMMARY | 2024-10-24 09:24 | XMS_ITS | Encounter Summary ---
Author Organization [employer] [facility] Address [address] [place] [address] Care Team Providers Care Pipe Fittings Molder Name Role Phone Kristal Cheek Primary Care Provider [phone] Reason for Visit * Reason Onset Date Comments Med Refill 04/21/2024 Encounter Details Date Type Department Care Team ([facility] st Contact Info) Description 04/21/2024 Telephone [facility] MEDICINE [address] [place], [place] [phone] Kristal Cheek ANP [address] [place], [place] [phone] Med Refill Social History Tobacco Use Types [...] 50 MG tablet To be sent to: [facility] - [place], [place] - [address] [place] [address] Pt also stated per insurance medication can be filled for a month. documented in this encounter Plan of Treatment Upcoming Encounters Date Type Department Care Team (Late st Contact Info) Description 10/29/2024 9:00 AM EST Clinical Support [facility] MED & PEDS 505 [place] [address] Shantal Moncada, RN 505 [place] [address] documented as of this encounter Visit Diagnoses Not on filedocumented in this encounter Care Teams Pipe Fittings Molder Relationship Specialty Start Date End Date Kristal Cheek ANP [address] [place] [address] PCP - General Family Medicine 10/26/20 documented as of this encounter
--- OUTSIDE RECORDS SUMMARY | 2024-10-24 09:24 | XMS_ITS | Encounter Summary ---
Author Organization [employer] [facility] Address [address] [place] [address] Care Team Providers Care Saw Runner Name Role Phone Kristal Cheek Primary Care Provider [phone] Reason for Visit * Reason Onset Date Comments Med Refill 08/10/2023 Encounter Details Date Type Department Care Team ([facility] st Contact Info) Description 08/10/[address] [facility] MEDICINE [address] [place], [place] [phone] Kristal Cheek ANP [address] [place], [place] [phone] Chronic bilateral low back pain with right-sided [...] 9:00 AM EST Clinical Support [facility] MED & PEDS [address] [place] [address] Shantal Moncada, RN [address] [place] [address] documented as of this encounter Visit Diagnoses Diagnosis Chronic bilateral low back pain with right-sided sciatica Pain Generalized pain documented in this encounter Care Teams Saw Runner Relationship Specialty Start Date End Date Kristal Cheek ANP [address] [place] [id number] PCP - General Family Medicine 10/26/20 documented as of this encounter
--- OUTSIDE RECORDS SUMMARY | 2024-10-24 09:24 | XMS_ITS | Clinical Summary ---
Author Organization [employer] Address [address] [place] [address] Care Team Providers Care Travel Agent Name Role Phone Kristal Cheek Primary Care Provider [phone] Allergies No known active allergies Medications Blood Pressure kitIndications:Be nign essential hypertension 1 kit in the morning. 1 kit 3 Active Blood Pressure Monitor misc USE TO CHECK BLOOD PRESSURE IN THE MORNING 3 Active ibuprofen 800 MG tablet Take 400 mg by mouth every 6 (six) hours if needed for mild pain. Active lisinopril-hydroC HLOROthiazide 20-12.5 MG tabletIndications :Hypertensive urgency TAKE 1 TABLET BY MOUTH EVERY MORNING 90 tablet 1 4 Active traMADol (Ultram) 50 MG tabletIndications :Chronic bilateral low back pain with right-sided sciatica Take 1 tablet (50 mg) by mouth every 8 (eight) hours if needed for severe pain for up to 28 days. 84 tablet 5 10/20/19 25 Active Problems Problem Noted Date Diagnosed Date half-way (current) use of opiate analgesic 08/10 Overview [...] DEPARTMENT Provider, Generic External Data 10/07/[address] [address] Samantha Portillo MA PA fot Tramadol 10/03/2024 Refill [facility] [address] [place] [address] Kristal Cheek ANP Chronic bilateral low back pain with right-sided sciatica 09/23/2024 Telephone [facility] [address] [place] [address] Samantha Portillo MA March recall 09/22/2024 Refill [facility] [address] [place] [address] Kristal Cheek ANP Chronic bilateral low back pain with right-sided sciatica 09/18/2024 9:00 AM EST Clinical Support [facility] [address] [place] [address] Shantal Moncada RN Chronic bilateral low back pain with right-sided sciatica 09/18/2024 Travel 09/12/[address] [address] Carmen Dela Cruz RNpump and still operator 08/26/[address] [address] Kristal Cheek ANP Appointment Request 08/25/2024 11:15 AM EST Office Visit [address] [address] Kristal Cheek ANP Benign essential hypertension (Primary Dx); Chronic bilateral low back pain with right-sided sciatica; 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 08/25/2024 Travel 08/25/2024 Refill [facility] [address] [place] [address] Shantal Moncada, flight attendant inflight services bilateral low back pain with right-sided sciatica (Primary Dx) 08/25/2024 Refill [facility] [address] [place] [address] Kristal Cheek ANP 08/13/2024 Telephone [facility] [address] [place] [address] Shantal Moncada, GABRIELE 08/13/2024 Telephone [facility] [address] [place] [address] Shantal Moncada, GABRIELE 08/11/2024 Refill [facility] [address] [place] [address] Kristal Cheek ANP Chronic bilateral low back pain with right-sided sciatica 08/09/2024 Refill [facility] [address] [place] [address] Kristal Cheek ANP Hypertensive urgency 08/09/2024 Refill [facility] [address] [place] [address] Kristal Cheek ANP Chronic bilateral low back pain with right-sided sciatica from Last 3 Months Immunizations Name Administration [...] housing situation today? I have sylshan moss 08/25/[address] you [...] Description 10/29/2024 9:00 AM EST Clinical Support [facility] [address] [place] [address] Shantal Moncada, RN [address] [place] [address] Health Maintenance Due Date Last Done Comments [...] Alcohol/Substance Use Screening 06/26/2025 06/26/2024 COVID-19 Vaccine (1 - season) 2025 Postponed from 05/11/2024 (Patient Refused) Depression Screening 08/25/2025 08/25/2024, 08/25/20 24 SDOH Screening 08/25/2025 08/25/2024 Tobacco Screening [...] Name Priority Date/Time Associated Diagnosis Comments VITAMIN B1 Routine 10/13/2024 12:13 PM EST VITAMIN A Routine 10/13/2024 12:13 PM EST ZINC Routine 10/13/2024 12:13 PM EST INSULIN Routine 10/13/2024 12:13 PM EST VITAMIN B12/FOLATE, SERUM PANEL Routine 10/13/2024 12:13 PM EST TSH W/REFLEX [...] pain with right-sided sciatica HEPATITIS C ANTIBODY ([place] DPH) Routine 03/31/2024 HIV ANTIBODY/ANTIGEN ([place] DP) Routine 03/31/2024 BITEWING - SINGLE RADIOGRAPHIC IMAGE Routine 07/17/2017 12:00 AM EST from Last 3 Months or Most Recently Relevant to Health Maintenance Results * (ABNORMAL) Vitamin D, 25-Hydroxy, Total, Immunoassay (10/13/2024 12:13 PM EST) [facility] Vitamin D 25-OH Total 17.2(L) >30 ng/mL [facility] Comment:Health Based Referen ce Values*< 20 ng/mL Afluvalgm38-62 ng/mL Insufficient> 30 ng/mL Sufficient*Girish MCPHERSON. N Engl J Med. 2007;357:266-280Care must be taken in interpreting Vitamin D results fromdifferent laboratories and methodologies. Published datademonstrated that results from patients undergoinghemodialysis may show a negative bias when tested withvarious automated 25-OH vitamin D assays when compared toLC-MS/MS.When testing samples from patients whose predominant form ofVitamin D is Vitamin D2, such as patients receiving VitaminD2 supplementation, results that are subtherapeutic shouldbe confirmed with another method such as LC-MS/MS. 10/13/2024 12:1 3 PM EST 10/13/2024 12:13 PM EST us Generic External Data Provider LAB BLOOD ORDERAB LES Final Result Performing Organization Address [facility] Co de Phone Number [facility] [address] [place] [phone] * Vitamin B12 (Cobalamin) and Folate Panel, Serum (10/13/2024 12:13 PM EST) Pathologist [facility] Vitamin B12 689 200 - 900 pg/mL [facility] Comment:NORMAL 200-900 PG/ML INDETERMINATE 160-199 PG/ML DEFICIENT < 160 PG/ML Folate 8.6 > or = 4.0 ng/mL [facility] Comment:Reference Values:> o r = 4.0 ng/mL< 4.0 ng/mL suggests folate deficiency Methotrexate, aminopterin and folinic acid(leucovorin) are chemotherapeutic agents whose molecularstructures are similar to folate; therefore, the Architectfolate assay cannot be used for patients using these drugs. 10/13/2024 12:1 3 PM EST 10/13/2024 12:13 PM EST Generic External Data Provider LAB BLOOD ORDERAB LES Final Result Performing Organization Address [facility] Co de Phone Number [facility] [address] [place] [phone] * TSH with Reflex to Free T4 (10/13/2024 12:13 PM EST) [facility] TSH reflex Free T4 0.43 0.32 - 4.0 uIU/mL [facility] 10/13/2024 12:1 3 PM EST 10/13/2024 12:13 PM EST Generic External Data Provider LAB BLOOD ORDERAB LES Final Result Performing Organization Address [facility] Co de Phone Number [facility] [address] [place] [phone] * (ABNORMAL) CBC auto differential (10/13/2024 12:13 PM EST) White Blood Count 4.7(L) 4.8 - 10.8 X10*3/uL [facility] Red Blood Count 6.09(H) 4.60 - 5.80 X10*6/uL [facility] Hemoglobin 16.1 14.0 - 18.0 g/dl [facility] Hematocrit 49.2 42.0 - 52.0 % [facility] Mean Corpuscular Volume 80.8 80.0 - 98.0 fL [facility] Mean Corpuscular Hemoglobin 26.4(L) 27.0 - 33.0 pg [facility] Mean Corpuscular HGB Conc 32.7 31.0 - 36.0 g/dl [facility] Red Cell Distribution Width 13.2 11.0 - 16.0 % [facility] Platelet Count 200 160 - 400 X10*3/uL [facility] Mean Platelet Volume 10.2 9.4 - 12.4 fL [facility] Neutrophils Percent Auto 62.2 45 - 73 % [facility] Imm Gran Pct Auto 0.2 0.0 - 0.4 % [facility] Lymphocytes Percent Auto 29.2 20 - 40 % [facility] Monocytes Percent Auto 6.0 2 - 11 % [facility] Eosinophils Percent Auto 1.3 0 - 4 % [facility] Basophils Percent Auto 1.1 0 - 2 % [facility] NRBC Pct Auto 0.0 0.0 - 0.2 /100WBC [facility] Neutrophils Absolute Auto 2.9 2.0 - 8.3 x10*3/uL [facility] Imm Gran Abs Auto 0.01 0.00 - 0.03 X10*3/uL [facility] Lymphocytes Absolute Auto 1.4 1.2 - 4.9 X10*3/uL [facility] Monocytes Absolute Auto 0.3 0.1 - 1.2 X10*3/uL [facility] Eosinophils Absolute Auto 0.1 0.0 - 0.4 X10*3/uL [facility] Basophils Absolute Auto 0.1 0.0 - 0.2 X10*3/uL [facility] NRBC Abs Auto 0.000 0.0 - 0.012 X10*3/uL [facility] 10/13/2024 12:1 3 PM EST 10/13/2024 12:13 PM EST us Generic External Data Provider LAB BLOOD ORDERAB LES Final Result Performing Organization Address [facility] Phone Number [facility] [address] [place] [phone] * Iron And Total Iron Binding Capacity (10/13/2024 12:13 PM EST) Iron 100 45 - 160 mcg/dL [facility] Total Iron Binding Capacity 289 228 - 428 mcg/dL [facility] Percent Iron Saturation 35 15 - 50 % [facility] Unsaturated Iron Binding 189 ug/dL [facility] 10/13/2024 12:1 3 PM EST 10/13/2024 12:13 PM EST Generic External Data Provider LAB BLOOD ORDERAB LES Final Result Performing Organization Address [facility] Number [facility] [address] [place] [phone] * Insulin (10/13/2024 12:13 PM EST) Insulin 10 2 - 29 uU/mL [facility] Comment:This test was perfor med using the Edmonds chemiluminescentmethod. Values obtained from different assay methods cannot beused interchangeably. This insulin assay shows a possiblecross-reactivity with antibodies generated against insulin(immunoreactive insulin and some patients treated withbovine or porcine insulin). Insulin levels may be measuredlower in patients with insulin autoimmune syndrome orfamilial high pro-insulinemia. 10/13/2024 12:1 3 PM EST 10/13/2024 12:13 PM EST Generic External Data Provider LAB BLOOD ORDERAB LES Final Result Performing Organization Address [facility]/ZIP Co de Phone Number [facility] [address] [place] [address] [phone] * Zinc (10/13/2024 12:13 PM EST) Zinc 71 60 - 130 mcg/dL [facility] Comment:This test was develo ped and its analytical performancecharacteristics have been determined by [employer] [place], [place]. It hasnot been cleared or approved by the .S. Food and DrugAdministration. This assay has been validated pursuantto the CLIA regulations and is used for clinicalpurposes.THIS TEST WAS PERFORMED AT:[email or web address] [id number] [place] [address]BCEASKKARABELLA ALEMAN MD,PHD 10/13/2024 12:1 3 PM EST 10/13/2024 12:13 PM EST us Generic External Data Provider LAB BLOOD ORDERAB LES Final Result Performing Organization Address [facility] Co de Phone Number [facility] [address] [place] [phone] [phone] * Vitamin A (10/13/2024 12:13 PM EST) Vitamin A (Retinol) 39 38 - 98 mcg/dL [facility] Comment:Vitamin supplementat ion within 24 hours prior toblood draw may affect the accuracy of the results.This test was developed and its analytical performancecharacteristics have been determined by [employer], [place]. It hasnot been cleared or approved by the U.S. Food and DrugAdministration. This assay has been validated pursuantto the CLIA regulations and is used for clinicalpurposes.THIS TEST WAS PERFORMED AT:[employer]/[address] [place] [id number] ALEMAN MD,PHD 10/13/2024 12:1 3 PM EST 10/13/2024 12:13 PM EST us Generic External Data Provider LAB BLOOD ORDERAB LES Final Result Performing Organization Address [facility]/ZIP Co de Phone Number [facility] [address] [place] [phone] * C-reactive Protein (10/13/2024 12:13 PM EST) C Reactive Protein <0.10 < or = 0.50 mg/dL [facility] 10/13/2024 12:1 3 PM EST 10/13/2024 12:13 PM EST Generic External Data Provider LAB BLOOD ORDERAB LES Final Result Performing Organization Address [facility] Phone Number [facility] [address] [place] [phone] * Vitamin B1 (10/13/2024 12:13 PM EST) Vitamin B1 14 8 - 30 nmol/L [facility] Comment:Vitamin supplementat ion within 24 hours prior toblood draw may affect the accuracy of the results.This test was developed and its analytical performancecharacteristics have been determined by [employer], [place]. It hasnot been cleared or approved by the U.S. Food and DrugAdministration. This assay has been validated pursuantto the CLIA regulations and is used for clinicalpurposes.THIS TEST WAS PERFORMED AT:[employer] [place] [address]LSAOXWSARABELLA ALEMAN MD,PHD 10/13/2024 12:1 3 PM EST 10/13/2024 12:13 PM EST Generic External Data Provider LAB BLOOD ORDERAB LES Final Result Performing Organization Address [facility] Co de Phone Number [facility] [address] [place] [phone] * Hemoglobin A1c (10/13/2024 12:13 PM EST) Hemoglobin A1c 5.0 <6.0 % [facility] Comment:Hemoglobin A1C Refer ence Range Adults: 4.8 - 6.0 % Non diabetic: < 6.0 % Goal: < 7.0 %Additional Action Suggested: > 8.0 %Note: Hemoglobin A1c results are invalid for patients with abnormal amounts of HbF. Blood transfusions may impact the HbA1c concentration in the patient sample. Estimated Average Glucose 97 mg/dL [facility] Comment:eAG = Estimated ave rage glucose which is %A1C expressed asaverage glucose, using the formula of the X6N-PloiyoaCrsdyib Glucose study (ADAG), Diabetes Care, Vol.31,#8,Apr. 2007 10/13/2024 12:1 3 PM EST 10/13/2024 12:13 PM EST Generic External Data Provider LAB BLOOD ORDERAB LES Final Result Performing Organization Address [facility] Co de Phone Number [facility] [address] [place] [phone] * Ferritin (10/13/2024 12:13 PM EST) Ferritin 205 20 - 250 ng/mL [facility] 10/13/2024 12:1 3 PM EST 10/13/2024 12:13 PM EST [employer] External Data Provider LAB BLOOD ORDERAB LES Final Result Performing Organization Address [facility] Co de Phone Number [facility] [address] [place] [phone] * Lipid Panel, Standard (10/13/2024 12:13 PM EST) Triglycerides 54 <150 mg/dL [facility] Comment:Desirable Triglyceri de: less than 150 mg/dLBorderline High Triglyceride 150-199 mg/dLHigh Triglyceride: 200-499 mg/dLVery High Triglyceride: greater than or equal to 5OO mg/dL Cholesterol 139 <200 mg/dL [facility] Comment:Desirable Cholestero l: less than 200 mg/dLBorderline High Cholesterol: 200-239 mg/dLHigh Cholesterol: greater than 239 mg/dL LDL Cholesterol Calculated 84 <100 mg/dL [facility] Comment:Desirable LDL: less than 100 mg/dLNear Optimal/Above Optimal LDL: 110- 129 mg/dLBorderline High LDL: 130-159 mg/dLHigh LDL: 160-189 mg/dLVery High LDL: greater than or equal to 190 mg/dL HDL Cholesterol 45 >40 mg/dL [facility] Comment:Desirable HDL: great er than 40 mg/dL Note: This HDL assay may give artificially low results in patients with liver disease. 10/13/2024 12:1 3 PM EST 10/13/2024 12:13 PM EST us Generic External Data Provider LAB BLOOD ORDERAB LES Final Result [facility] [address] [place] [phone] * (ABNORMAL) Comprehensive Metabolic Panel (10/13/2024 12:13 PM EST) Sodium 139 135 - 145 mmol/L [facility] Potassium 3.9 3.3 - 5.1 mmol/L [facility] Chloride 108 96 - 108 mmol/L [facility] Carbon Dioxide 26 22 - 29 mmol/L [facility] Anion Gap 9(L) 12 - 20 [facility] Urea Nitrogen (BUN) 8(L) 9 - 16 mg/dL [facility] Creatinine, Serum 0.67 0.5 - 1.4 mg/dL [facility] Estimated Glomerular Filt Rate >60 [facility] Comment:Chronic Kidney Disea se: Estimated GFR < 60 mL/min/1.13x9Gdalls Kidney Disease: Estimated GFR < 15 mL/min/1.73m2 Glucose 90 60 - 115 mg/dL [facility] Calcium 9.0 8.4 - 10.2 mg/dL [facility] Bilirubin, Total 0.7 0.0 - 1.0 mg/dL [facility] Aspartate Amino Transferase 22 5 - 37 U/L [facility] Alanine Aminotransferase 31 0 - 40 U/L [facility] Total Protein 6.9 6.5 - 8.0 g/dL [facility] Albumin Level 4.3 3.5 - 5.0 g/dL [facility] Alkaline Phosphatase 103 39 - 117 U/L [facility] Blood Venous blood specimen / Unknown 10/13/2024 12:13 PM EST 10/13/2024 12:13 PM EST Result [facility] Kristal RUSSELL LAB BLOOD ORDERABLES Final Resul t [facility] [address] [place] [phone] * POCT MIGUELITO-14 Urine Drug Screen (09/18/2024 9:23 AM EST) Urine Urine specimen obtained by clean catch procedure / Unknown 09/18/2024 9:23 AM EST Narrative Shantal Moncada RN - 09/18/2024 9:23 AM EST Lot# [id number] Exp: 08-16-25 Result [facility] us Kristal RUSSELL POINT OF CARE TEST ENTER/EDIT OR DERABLES Final Result * Hepatitis C Antibody (ALEXIS NEWELL) (03/31/2024) Hepatitis C Ab Nonreactive Blood 03/31/2024 Result [facility] Historical Provider LAB BLOOD ORDERABLES Anastasia l Result * HIV Ab/Ag (ALEXIS NEWELL) (03/31/2024) HIV Ag/Ab Nonreactive Blood 03/31/2024 Historical Provider LAB BLOOD ORDERABLES Anastasia l Result from Last 3 Months or Most Recently Relevant to Health Maintenance Insurance [facility] Care Teams Travel Agent Relationship Specialty Start Date End Date Kristal Cheek ANP [address] [place] [phone] PCP - General Family Medicine 10/26/20
--- OUTSIDE RECORDS SUMMARY | 2024-10-24 09:24 | XMS_ITS | Encounter Summary ---
Author Organization [employer] [facility] Address [address] [place] [address] Care Team Providers Care Scoop Driver Name Role Phone Kristal Cheek Primary Care Provider [phone] Reason for Visit * Reason Onset Date Comments Med Refill 05/05/2024 Encounter Details Date Type Department Care Team ([facility] st Contact Info) Description 05/05/2024 Telephone [facility] MEDICINE [address] [place], [place] [phone] Kristal Cheek ANP [address] [place], [place] [phone] Med Refill Social History Tobacco Use Types [...] encounter Miscellaneous Notes * Telephone Encounter - Renée Jansen - 05/05/2024 11:28 AM EDT TC from pt requesting medication refill. Medications needing refill : traMADol (Ultram) 50 MG tablet To be sent to: [facility] - [place], [place] - [address] [place] [address] documented in this encounter Plan of Treatment Upcoming Encounters Date Type Department Care Team (Late st Contact Info) Description 10/29/2024 9:00 AM EST Clinical Support [facility] [address] [place] [address] Shantal Moncada, RN [address] [place] [address] documented as of this encounter Visit Diagnoses Not on filedocumented in this encounter Care Teams Scoop Driver Relationship Specialty Start Date End Date Kristal Cheek ANP [address] [facility] [place] [address] PCP - General Family Medicine 10/26/20 documented as of this encounter
--- OUTSIDE RECORDS SUMMARY | 2024-10-24 09:24 | XMS_ITS | Encounter Summary ---
Author Organization [employer] [facility] Address [address] [place] [address] Care Team Providers Care Enamel Drier Name Role Phone Kristal Cheek Primary Care Provider [phone] Reason for Visit * Reason Onset Date Comments Nurse Triage 01/16/2024 Encounter Details Date Type Department Care Team ([facility] st Contact Info) Description 01/16/2024 Telephone [facility] MEDICINE [address] [place], [place] [phone] Kristal Cheek ANP [address] [place], [place] [phone] Nurse Triage Social History Tobacco Use Types [...] [facility] [address] [place] [address] Shantal Moncada, GABRIELE [address] [place] [address] documented as of this encounter Visit Diagnoses Not on filedocumented in this encounter Care Teams Enamel Drier Relationship Specialty Start Date End Date Kristal Cheek ANP [address] [place] [phone] PCP - General Family Medicine 10/26/20 documented as of this encounter
--- OUTSIDE RECORDS SUMMARY | 2024-10-24 09:24 | XMS_ITS | Encounter Summary ---
Author Organization [facility] Address [address] [place] [address] Care Team Providers Care Hot Stick Worker Name Role Phone Kristal Cheek Primary Care Provider [phone] Encounter Details Date Type Department Care Team [...] Upcoming Encounters Date Type Department Care Team ([facility] st Contact Info) Description 10/29/2024 9:00 AM EST Clinical Support [facility] [address] [place] [address] Shantal Moncada RN [address] [place] [address] documented as of this encounter Procedures Procedure Name Priority Date/Time Associated Diagnosis Comments VITAMIN D,25-OH,TOTAL,IA Routine 10/13/2024 12:13 PM EST VITAMIN B12/FOLATE, SERUM PANEL Routine 10/13/2024 12:13 PM EST TSH W/REFLEX TO FT4 Routine 10/13/2024 1 2:13 PM EST CBC WITH AUTO DIFFERENTIAL Routine 10/13/2024 12:13 PM EST IRON AND TOTAL IRON BINDING CAPACITY Routine 10/13/2024 12:13 PM EST INSULIN Routine 10/13/2024 12:13 PM EST ZINC Routine 10/13/2024 12:13 PM EST VITAMIN A Routine 10/13/2024 12:13 PM EST C-REACTIVE PROTEIN Routine 10/13/2024 12 :13 PM EST VITAMIN B1 Routine 10/13/2024 12:13 PM EST HEMOGLOBIN A1C Routine 10/13/2024 12:13 PM EST FERRITIN Routine 10/13/2024 12:13 PM EST LIPID PANEL, STANDARD Routine 10/13/2024 12:13 PM EST documented in this encounter Results * Vitamin B1 (10/13/2024 12:13 PM EST) Vitamin B1 14 8 - 30 nmol/L [facility] Comment:Vitamin supplementat ion within 24 hours prior toblood draw may affect the accuracy of the results.This test was developed and its analytical performancecharacteristics have been determined by [employer] [place]. It hasnot been cleared or approved by the U.S. Food and DrugAdministration. This assay has been validated pursuantto the CLIA regulations and is used for clinicalpurposes.THIS TEST WAS PERFORMED AT:[employer] [place] [address]PXAJDXMARABELLA ALEMAN MD,PHD 10/13/2024 12:1 3 PM EST 10/13/2024 12:13 PM EST us Generic External Data Provider LAB BLOOD ORDERAB LES Final Result [facility] [address] [place] [phone] * Vitamin A (10/13/2024 12:13 PM EST) Vitamin A (Retinol) 39 38 - 98 mcg/dL [facility] Comment:Vitamin supplementat ion within 24 hours prior toblood draw may affect the accuracy of the results.This test was developed and its analytical performancecharacteristics have been determined by [employer] [place]. It hasnot been cleared or approved by the U.S. Food and DrugAdministration. This assay has been validated pursuantto the CLIA regulations and is used for clinicalpurposes.THIS TEST WAS PERFORMED AT:[employer] [id number] [place] [id number] ALEMAN MD,PHD 10/13/2024 12:1 3 PM EST 10/13/2024 12:13 PM EST Generic External Data Provider LAB BLOOD ORDERAB LES Final Result Performing Organization Address [facility] de Phone Number [facility] [address] [place] [phone] * Zinc (10/13/2024 12:13 PM EST) Zinc 71 60 - 130 mcg/dL [facility] Comment:This test was develo ped and its analytical performancecharacteristics have been determined by [employer] [place], [place]. It hasnot been cleared or approved by the U.S. Food and DrugAdministration. This assay has been validated pursuantto the CLIA regulations and is used for clinicalpurposes.THIS TEST WAS PERFORMED AT:[employer] [id number] [place] [address]CANNROFARABELLA ALEMAN MD,PHD 10/13/2024 12:1 3 PM EST 10/13/2024 12:13 PM EST Generic External Data Provider LAB BLOOD ORDERAB LES Final Result Performing Organization Address [facility] Co de Phone Number [facility] [address] [place] [phone] * Insulin (10/13/2024 12:13 PM EST) Insulin 10 2 - 29 uU/mL [facility] Comment:This test was perfor med using the ThoughtLeadr chemiluminescentmethod. Values obtained from different assay methods [...] ORDERAB LES Final Result Performing Organization Address [facility] Co de Phone Number [facility] [address] [place] [address] [phone] * Vitamin B12 (Cobalamin) and Folate Panel, Serum (10/13/2024 12:13 PM EST) Vitamin B12 689 200 - 900 pg/mL [facility] Comment:NORMAL 200-900 PG/ML INDETERMINATE 160-199 PG/ML DEFICIENT < 160 PG/ML Folate 8.6 > or = 4.0 ng/mL [facility] Comment:Reference Values:> o r = 4.0 ng/mL< 4.0 ng/mL suggests folate deficiency Methotrexate, aminopterin and folinic acid(leucovorin) are chemotherapeutic agents whose molecularstructures are similar to folate; therefore, the Architectfolate assay cannot be used for patients using these drugs. 10/13/2024 12:1 3 PM EST 10/13/2024 12:13 PM EST Generic External Data Provider LAB BLOOD ORDERAB LES Final Result Performing Organization Address [facility] de Phone Number [facility] [address] [place] [address] [phone] * TSH with Reflex to Free T4 (10/13/2024 12:13 PM EST) TSH reflex Free T4 0.43 0.32 - 4.0 uIU/mL [facility] 10/13/2024 12:1 3 PM EST 10/13/2024 12:13 PM EST us Generic External Data Provider LAB BLOOD ORDERAB LES Final Result Performing Organization Address City/[facility]/ZIP Co de Phone Number [facility] [address] [place] [address] [phone] * (ABNORMAL) Vitamin D, 25-Hydroxy, Total, Immunoassay (10/13/2024 12:13 PM EST) Vitamin D 25-OH Total 17.2(L) >30 ng/mL [facility] Comment:Health Based Referen ce Values*< 20 ng/mL [id number] ng/mL Insufficient> 30 ng/mL Sufficient*Girish MCPHERSON. N [...] ORDERAB LES Final Result Performing Organization Address City/[facility]/ZIP Co de Phone Number [facility] [address] [place] [address] [phone] * Ferritin (10/13/2024 12:13 PM EST) Ferritin 205 20 - 250 ng/mL [facility] 10/13/2024 12:1 3 PM EST 10/13/2024 12:13 PM EST us Generic External Data Provider LAB BLOOD ORDERAB LES Final Result Performing Organization Address City/[facility]/ZIP Co de Phone Number [facility] [address] [place] [address] [phone] * Lipid Panel, Standard (10/13/2024 12:13 PM EST) Triglycerides 54 <150 mg/dL [facility] Comment:Desirable Triglyceri de: less than 150 mg/dLBorderline High Triglyceride 150-199 mg/dLHigh Triglyceride: 200-499 mg/dLVery High Triglyceride: greater than or equal to 5OO mg/dL Cholesterol 139 <200 mg/dL [facility] Comment:Desirable Cholestero l: less than 200 mg/dLBorderline High Cholesterol: 200-239 mg/dLHigh Cholesterol: greater than 239 mg/dL LDL Cholesterol Calculated 84 <100 mg/dL [facility] Comment:Desirable LDL: less than 100 mg/dLNear Optimal/Above Optimal LDL: 110- 129 mg/dLBorderline High LDL: 130-159 mg/dLHigh LDL: 160-189 mg/dLVery High LDL: greater than or equal to 190 mg/dL HDL Cholesterol 45 >40 mg/dL [facility] Comment:Desirable HDL: great er than 40 mg/dL Note: This HDL assay may give artificially low results in patients with liver disease. 10/13/2024 12:1 3 PM EST 10/13/2024 12:13 PM EST us Generic External Data Provider LAB BLOOD ORDERAB LES Final Result Performing Organization Address [facility]/ZIP Co de Phone Number [facility] [address] [place] [phone] * C-reactive Protein (10/13/2024 12:13 PM EST) C Reactive Protein <0.10 < or = 0.50 mg/dL [facility] 10/13/2024 12:1 3 PM EST 10/13/2024 12:13 PM EST us Generic External Data Provider LAB BLOOD ORDERAB LES Final Result Performing Organization Address City/[facility]/ZIP Co de Phone Number [facility] [address] [place] [phone] * Iron And Total Iron Binding Capacity (10/13/2024 12:13 PM EST) Iron 100 45 - 160 mcg/dL [facility] Total Iron Binding Capacity 289 228 - 428 mcg/dL [facility] Percent Iron Saturation 35 15 - 50 % [facility] Unsaturated Iron Binding 189 ug/dL [facility] 10/13/2024 12:1 3 PM EST 10/13/2024 12:13 PM EST us Generic External Data Provider LAB BLOOD ORDERAB LES Final Result Performing Organization Address [facility]/ZIP Co de Phone Number [facility] [address] [place] [phone] * Hemoglobin A1c (10/13/2024 12:13 PM EST) Hemoglobin A1c 5.0 <6.0 % [facility] Comment:Hemoglobin A1C Refer ence Range Adults: 4.8 - 6.0 % Non diabetic: < 6.0 % Goal: < 7.0 %Additional Action Suggested: > 8.0 %Note: Hemoglobin A1c results are invalid for patients with abnormal amounts of HbF. Blood transfusions may impact the HbA1c concentration in the patient sample. Estimated Average Glucose 97 mg/dL [facility] Comment:eAG = Estimated ave rage glucose which is %A1C expressed asaverage glucose, using the formula of the N2G-OcpbnbiPyzqgdw Glucose study (ADAG), Diabetes Care, Vol.31,#8,Apr. 2007 10/13/2024 12:1 3 PM EST 10/13/2024 12:13 PM EST us Generic External Data Provider LAB BLOOD ORDERAB LES Final Result Performing Organization Address [facility]/ZIP Co de Phone Number [facility] [address] [place] [address] [phone] * (ABNORMAL) CBC auto differential (10/13/2024 12:13 PM EST) White Blood Count 4.7(L) 4.8 - 10.8 X10*3/uL [facility] Red Blood Count 6.09(H) 4.60 - 5.80 X10*6/uL [facility] Hemoglobin 16.1 14.0 - 18.0 g/dl [facility] Hematocrit 49.2 42.0 - 52.0 % [facility] Mean Corpuscular Volume 80.8 80.0 - 98.0 fL [facility] Mean Corpuscular Hemoglobin 26.4(L) 27.0 - 33.0 pg [facility] Mean Corpuscular HGB Conc 32.7 31.0 - 36.0 g/dl [facility] Red Cell Distribution Width 13.2 11.0 - 16.0 % [facility] Platelet Count 200 160 - 400 X10*3/uL [facility] Mean Platelet Volume 10.2 9.4 - 12.4 fL [facility] Neutrophils Percent Auto 62.2 45 - 73 % [facility] Imm Gran Pct Auto 0.2 0.0 - 0.4 % [facility] Lymphocytes Percent Auto 29.2 20 - 40 % [facility] Monocytes Percent Auto 6.0 2 - 11 % [facility] Eosinophils Percent Auto 1.3 0 - 4 % [facility] Basophils Percent Auto 1.1 0 - 2 % [facility] NRBC Pct Auto 0.0 0.0 - 0.2 /100WBC [facility] Neutrophils Absolute Auto 2.9 2.0 - 8.3 x10*3/uL [facility] Imm Gran Abs Auto 0.01 0.00 - 0.03 X10*3/uL [facility] Lymphocytes Absolute Auto 1.4 1.2 - 4.9 X10*3/uL [facility] Monocytes Absolute Auto 0.3 0.1 - 1.2 X10*3/uL [facility] Eosinophils Absolute Auto 0.1 0.0 - 0.4 X10*3/uL [facility] Basophils Absolute Auto 0.1 0.0 - 0.2 X10*3/uL [facility] NRBC Abs Auto 0.000 0.0 - 0.012 X10*3/uL [facility] 10/13/2024 12:1 3 PM EST 10/13/2024 12:13 PM EST us Generic External Data Provider LAB BLOOD ORDERAB LES Final Result Performing Organization Address City/State/[facility] Co de Phone Number [facility] [address] [place] [phone] documented in this encounter Visit Diagnoses Not on filedocumented in this encounter Additional Health Concerns Assessment Noted Time PHQ-9 Depression Total Score: 0 08/25/20 24 12:04 PM EST documented as of this encounter Care Teams Hot Stick Worker Relationship Specialty Start Date End Date Kristal Cheek ANP [address] [place] [address] PCP - General Family Medicine 10/26/20 documented as of this encounter
--- OUTSIDE RECORDS SUMMARY | 2024-10-24 09:24 | XMS_ITS | Encounter Summary ---
Author Organization [employer] Address [address] [place] [address] Care Team Providers Care Fire Safety Inspector Name Role Phone Kristal Cheek Primary Care Provider [phone] Reason for Visit * Reason Comments Med Refill Encounter Details Date Type Department Care Team (Late st Contact Info) Description 05/30/2024 Refill [facility] [address] [place] [address] Kristal Cheek ANP [address] [place] [address] Chronic bilateral low back pain with right-sided [...] [facility] [address] [place] [address] Shantal Moncada, GABRIELE [address] [place] [address] documented as of this encounter Visit Diagnoses Diagnosis Chronic bilateral low back pain with right-sided sciatica documented in this encounter Care Teams Fire Safety Inspector Relationship Specialty Start Date End Date Kristal Cheek ANP [address] [place] [phone] PCP - General Family Medicine 10/26/20 documented as of this encounter
--- OUTSIDE RECORDS SUMMARY | 2024-10-24 09:24 | XMS_ITS | Encounter Summary ---
Author Organization [facility] Address [address] [place] [address] [address] [place] [address] Care Team Providers Care Piano Mechanic Apprentice Name Role Phone Kristal Cheek Primary Care Provider [phone] Reason for Visit * Reason Comments Med Refill Encounter Details Date Type Department Care Team (Late st Contact Info) Description 11/03/2022 Refill [facility] [address] [place] [address] Kristal Cheek ANP [address] [place] [address] Social History Tobacco Use Types Packs/Day Years [...] [facility] [address] [place] [address] Shantal Moncada, RN [address] [place] [address] documented as of this encounter Visit Diagnoses Not on filedocumented in this encounter Care Teams Piano Mechanic Apprentice Relationship Specialty Start Date End Date Kristal Cheek ANP [address] [place] [address] PCP - General Family Medicine 10/26/20 documented as of this encounter
--- OUTSIDE RECORDS SUMMARY | 2024-10-24 09:24 | XMS_ITS | Encounter Summary ---
Author Organization [employer] [facility] Address [address] [place] [address] Care Team Providers Care Edge Brusher Name Role Phone Kristal Cheek YVONNE Primary Care Provider [phone] Reason for Visit * Reason Comments Med Refill Encounter Details Date Type Department Care Team ([facility] st Contact Info) Description 04/02/2024 Refill [facility] MEDICINE [address] [place], [place] [phone] Suzi Orta MD [address] [place], [place] [phone] Chronic bilateral low back pain with right-sided [...] [facility] [address] [place] [address] Shantal Moncada, GABRIELE [address] [place] [address] documented as of this encounter Visit Diagnoses Diagnosis Chronic bilateral low back pain with right-sided sciatica documented in this encounter Care Teams Edge Brusher Relationship Specialty Start Date End Date Kristal Cheek ANP [address] [place] [phone] PCP - General Family Medicine 10/26/20 documented as of this encounter
--- OUTSIDE RECORDS SUMMARY | 2024-10-24 09:24 | XMS_ITS | Encounter Summary ---
Author Organization [employer] Address [address] [place] [address] Care Team Providers Care Tester [employer]ed [employer] Boards Name Role Phone Kristal Cheek Primary Care Provider [phone] Reason for Visit * Reason Onset Date Comments Med Refill 10/03/2024 Durable Medical Equipment 10/03/2024 ANAHI SALAS Request: Tramadol Encounter Details Date Type Department Care Team ([facility] st Contact Info) Description 10/03/2024 Refill [facility]S [address] [place], [place] [phone] Kristal Cheek ANP [address] [place] [address] Chronic bilateral low back pain with right-sided [...] EST PA for Tramadol from [facility] placed on PCP desk for signature. documented in this encounter Plan of Treatment Upcoming Encounters Date Type Department Care Team (Late st Contact Info) Description 10/29/2024 9:00 AM EST Clinical Support [facility] [address] [place] [address] Shantal Moncada, GABRIELE [address] [place] [address] documented as of this encounter Visit Diagnoses Diagnosis Chronic bilateral low back pain with right-sided sciatica documented in this encounter Additional Health Concerns Assessment Noted Time PHQ-9 Depression Total Score: 0 08/25/20 24 12:04 PM EST documented as of this encounter Care Teams Tester [employer]ed [employer] Boards Relationship Specialty Start Date End Date Kristal Cheek ANP [address] [place] [phone] PCP - General Family Medicine 10/26/20 documented as of this encounter
--- OUTSIDE RECORDS SUMMARY | 2024-10-24 09:24 | XMS_ITS | Encounter Summary ---
Author Organization [employer] [facility] Address [address] [place] [address] [address] [place] [address] Care Team Providers Care Manager Of Employee Relations Name Role Phone Kristal Cheek Primary Care Provider [phone] Reason for Visit * Reason Comments Med Refill Encounter Details Date Type Department Care Team (Late st Contact Info) Description 10/16/2022 Refill [facility] [address] [place] [address] Kristal Cheek ANP [address] [place] [address] Social History Tobacco Use Types Packs/Day Years [...] Description 10/29/2024 9:00 AM EST Clinical Support [facility] [address] [place] [address] Shantal Moncada, RN [address] [place] [address] documented as of this encounter Visit Diagnoses Not on filedocumented in this encounter Care Teams Manager Of Employee Relations Relationship Specialty Start Date End Date Kristal Cheek ANP [address] [place] [address] PCP - General Family Medicine 10/26/20 documented as of this encounter
== END 2024-10-24 09:14 | disposition home or self-care (01) ==
LOC: HO.HBS 08:59
PROVIDERS: PCP Nurse Practitioner Primary Care; Visit Provider Physician Assistant Surgical
DX: L98.7 Excessive and redundant skin and subcutaneous tissue (principal); Z98.84 Bariatric surgery status
CPT/HCPCS: 99214

== ENCOUNTER → 2024-10-24 08:59 | Outpatient (BNVA) | payer OTHER, SELFPAY | PROVIDERS: PCP Nurse Practitioner Primary Care; Visit Provider Physician Assistant Surgical | DX: E66.9 Obesity, unspecified (principal); Z98.84 Bariatric surgery status; K74.00 Hepatic fibrosis, unspecified; K76.0 Fatty (change of) liver, not elsewhere classified; I10 Essential (primary) hypertension ==

== ENCOUNTER 2025-01-15 08:15 | Outpatient (AMB) | payer OTHER, SELFPAY ==
--- NOTE | 2025-01-15 08:20 | MHC.OFFVISWM ---
VS Expanded 01/15/25 08:29 BP 184/105 H Blood Pressure Location Rt radial Blood Pressure Position Sitting Pulse 52 Pulse Source Pulse Oximeter Temp 97.9 F Temperature Source Temporal Artery Scan Pulse Oximetry 96 Oxygen Delivery Method Room Air Height 6 ft 1 in Weight 247 lb 3.2 oz BMI 32.6 Body Fat % 26.2 Body Fat Mass 64.8 Fat Free Mass 182.4 Visceral Fat Rating 11.0 Body Water % 54.1 Body Water Mass 133.6 Muscle Mass/Score 173.6 Basal Metabolic Rate/Score 2,485 Comment L- 199/94 Intake Visit Reasons: (OV) PO LSG 12/27/23 Intake Note: pt stated not taking BP meds. pt stated he is not having any symptoms Allergies No Known Allergies Allergy (Verified 01/15/25 08:22) HPI Comments Details: This?a?34?yo male who is s/p LSG without hiatal hernia repair on?12/27/2023. Presents for 1 year 1 month post op visit. Weight today is 247.2 pounds, with a BMI of 32.6. There has been a 122.8 pound weight loss,(initial weight 370 pounds) since starting the program on 07/30/2023 reflecting a 33.1 % total body weight loss and a weight loss of 81.9 pounds since surgery (operative weight 329.1 pounds) reflecting a 24.8 % TBWL since surgery. No complaints of nausea, emesis, abdominal pain or reflux. Reports infrequent, hard bowel movements every 3-4 days. He states his initial goal was 250 pounds. He has a history of hypertension which was controlled previously however he has not taken his blood pressure medications in several months. Blood pressure today was elevated although he is completely asymptomatic. Heart he states that he has been having a rash underneath the excess skin of his abdomen. Given his extensive weight loss so far, it is not surprising that he has developed a rash. He has been trying to treat this with multiple showers per day and barrier clothing although this has been unsuccessful. He describes the rash as reddened, itchy, it does have a bad odor. And it is somewhat painful. This worsens with increased sweating at the gym which he has been doing most days of the week. We will send in prescription antifungal cream. Present meal plan includes: celebrate 4 in 1 2 scoops 8-10, 12-2 in 12 oz almond milk 5 forks protein, 5 forks cooked vegetables 8-11 pm celebrate rebuild 1 scoop Half cup fresh berries or apple if he wishes Drinking 80 oz water ? Exercise routine includes: weights elliptical at gym 5 days 400-500 saranya treadmill running 100-200 saranya Any post op complications: none AUBREE: never DM: never HTN: returned Hyperlipidemia: never GERD:?0-5 scale ??0 = no symptoms ??1 = symptoms noticeable but not bothersome 2 =symptoms bothersome but not daily ? 3 = symptoms bothersome and daily 4 = symptoms affect daily activities 5 = symptoms are incapacitating, unable to do daily activities ? How bad is the heartburn: 0 ? Heartburn while lying down: 0 ? Heartburn when standing up: 0 ? Heartburn after meals: 0 ? Does heartburn change your diet: 0 ? Does heartburn wake you up from sleep: 0 ? Do you have difficulty swallowin ? Do you have pain with swallowin ? If you take medicine for your reflux, does this affect your daily life: 0 Satisfaction with present condition - satisfied or not satisfied: mostly satisfied [facility] Medical History Pre-op evaluation Abnormal EKG Alcohol abuse H. pylori infection Back pain Asthma Murmur HTN (hypertension) Surgical History S/P laparoscopic sleeve gastrectomy H/O heart surgery Family History Mother Diabetes Hypertension Thyroid cancer Father No problems noted. Daughter Asthma Son No problems noted. Son No problems noted. 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 Physical Exam Const General: cooperative and no acute distress Orientation/consciousness: patient oriented x3 Resp Effort & Inspection: normal respiratory effort Auscultation: clear to auscultation bilaterally Cardio Rate: regular rate Rhythm: regular rhythm GI Inspection: Yes normal to inspection and Yes incision (well healed) Palpation (GI): Soft to palpation and no masses Neuro General: patient oriented x3 Assessment & Plan Assessment & Plan (1) S/P laparoscopic sleeve gastrectomy: Code(s): Z98.84 - Bariatric surgery status Category: Surgical Plan: Discussed the importance of compliance with taking his blood pressure medications. Discussed the likely outcome should he lose weight and achieve a healthy weight that he will no longer require blood pressure medications. He has not taken them for 3 months. Additionally, we will check 1 year postop labs. I have given him a meal plan as below: celebrate 4 in 1 2 scoops 8-10, 12-2 in 12 oz almond milk 6 forks protein, 6 forks cooked vegetables 8-11 pm celebrate rebuild 1 scoop Encouraged to continue exercise at the gym, tracking calories. He has been snacking on chips and cookies and was advised to avoid these given his commitment to his health and healthy weight. Orders: Orders Insulin Today I10 - Essential (primary) hypertension, K76.0 - Fatty (change of) liver, not elsewhere classified, Z98.84 - Bariatric surgery status Lipid Panel Today I10 - Essential (primary) hypertension, K76.0 - Fatty (change of) liver, not elsewhere classified, Z98.84 - Bariatric surgery status IRON PROFILE Today I10 - Essential (primary) hypertension, K76.0 - Fatty (change of) liver, not elsewhere classified, Z98.84 - Bariatric surgery status Zinc Today I10 - Essential (primary) hypertension, K76.0 - Fatty (change of) liver, not elsewhere classified, Z98.84 - Bariatric surgery status Ferritin Today I10 - Essential (primary) hypertension, K76.0 - Fatty (change of) liver, not elsewhere classified, Z98.84 - Bariatric surgery status TSH reflex Free T4 Today I10 - Essential (primary) hypertension, K76.0 - Fatty (change of) liver, not elsewhere classified, Z98.84 - Bariatric surgery status Complete Blood Count Auto Diff Today I10 - Essential (primary) hypertension, K76.0 - Fatty (change of) liver, not elsewhere classified, Z98.84 - Bariatric surgery status Vitamin B12 and Folate Today I10 - Essential (primary) hypertension, K76.0 - Fatty (change of) liver, not elsewhere classified, Z98.84 - Bariatric surgery status Comprehensive Met. Panel Today I10 - Essential (primary) hypertension, K76.0 - Fatty (change of) liver, not elsewhere classified, Z.84 - Bariatric surgery status Vitamin B1 Today I10 - Essential (primary) hypertension, K76.0 - Fatty (change of) liver, not elsewhere classified, Z.84 - Bariatric surgery status Vitamin A Today I10 - Essential (primary) hypertension, K76.0 - Fatty (change of) liver, not elsewhere classified, Z.84 - Bariatric surgery status C Reactive Protein Today I10 - Essential (primary) hypertension, K76.0 - Fatty (change of) liver, not elsewhere classified, Z.84 - Bariatric surgery status PTHI Today I10 - Essential (primary) hypertension, K76.0 - Fatty (change of) liver, not elsewhere classified, Z.84 - Bariatric surgery status Vitamin D 25-OH Total Today I10 - Essential (primary) hypertension, K76.0 - Fatty (change of) liver, not elsewhere classified, Z98.84 - Bariatric surgery status Hemoglobin A1c Today I10 - Essential (primary) hypertension, K76.0 - Fatty (change of) liver, not elsewhere classified, Z.84 - Bariatric surgery status
[2025-01-15 08:29] VITALS: BP 184/105; PULSE 52; TEMP 36.6; O2SAT 96; BMI 32.6
--- OUTSIDE RECORDS SUMMARY | 2025-01-15 08:34 | XMS_ITS | Encounter Summary ---
Author Organization [employer] Address [address] [place] [address] Care Team Providers Care Special Class Welder Name Role Phone Kristal Cheek Primary Care Provider [phone] Reason for Visit * Reason Onset Date Comments Med Refill 08/10/2023 Encounter Details Date Type Department Care Team ([facility] st Contact Info) Description 08/10/2023 Refill [facility] MEDICINE [address] [place], [place] [phone] Kristal Cheek ANP [address] [place] [address] Chronic bilateral low back pain with right-sided [...] as of this encounter Plan of Treatment Not on file documented as of this encounter Visit Diagnoses Diagnosis Chronic bilateral low back pain with right-sided sciatica Pain Generalized pain documented in this encounter Care Teams Special Class Welder Relationship Specialty Start Date End Date Kristal Cheek ANP [address] [place] [id number] PCP - General Family Medicine 10/26/20 documented as of this encounter
--- OUTSIDE RECORDS SUMMARY | 2025-01-15 08:34 | XMS_ITS | Encounter Summary ---
Author Organization [employer] Address [address] [place] [address] Care Team Providers Care Control Panel Assembler Name Role Phone Kristal Cheek Primary Care Provider [phone] Reason for Visit * Reason Onset Date Comments Nurse Triage 01/16/2024 Encounter Details Date Type Department Care Team ([facility] st Contact Info) Description 01/16/2024 Telephone [facility] MEDICINE 230 [place], [place] [phone] Kristal Cheek ANP 230 [place] [address] Nurse Triage Social History Tobacco Use Types [...] documented in this encounter Plan of Treatment Not on file documented as of this encounter Visit Diagnoses Not on filedocumented in this encounter Care Teams Control Panel Assembler Relationship Specialty Start Date End Date Kristal Cheek ANP [address] [place] [id number] PCP - General Family Medicine 10/26/20 documented as of this encounter
--- OUTSIDE RECORDS SUMMARY | 2025-01-15 08:34 | XMS_ITS | Encounter Summary ---
Author Organization [employer] Address [address] [place] [address] Care Team Providers Care Infrastructure Tech Name Role Phone Kristal Cheek YVONNE Primary Care Provider [phone] Reason for Visit * Reason Comments Med Refill Encounter Details Date Type Department Care Team ([facility] st Contact Info) Description 04/02/2024 Refill [facility] MEDICINE [address] [place], [place] [phone] Suzi Orta MD [address] [place], [place] [phone] Chronic bilateral low back pain with right-sided [...] sciatica documented in this encounter Care Teams Infrastructure Tech Relationship Specialty Start Date End Date Kristal Cheek ANP [address] [place] [address] PCP - General Family Medicine 10/26/20 documented as of this encounter
--- OUTSIDE RECORDS SUMMARY | 2025-01-15 08:34 | XMS_ITS | Encounter Summary ---
Author Organization [employer] Address [address] [place] [address] Care Team Providers Care Filenet P8 Developer Name Role Phone Kristal Cheek Primary Care Provider [phone] Reason for Visit * Reason Comments Med Refill Encounter Details Date Type Department Care Team ([facility] st Contact Info) Description 10/16/2022 Refill [facility] MED & PEDS [address] [place] [address] Kristal Cheek ANP [address] [place] [address] Social History Tobacco Use Types Packs/Day Years [...] on filedocumented in this encounter Care Teams Filenet P8 Developer Relationship Specialty Start Date End Date Kristal Cheek ANP [address] [place] [address] PCP - General Family Medicine 10/26/20 documented as of this encounter
--- OUTSIDE RECORDS SUMMARY | 2025-01-15 08:34 | XMS_ITS | Encounter Summary ---
Author Organization [employer] Address [address] [place] [address] Care Team Providers Care Oiler And Greaser Name Role Phone Kristal Cheek Primary Care Provider [phone] Reason for Visit * Reason Onset Date Comments Med Refill 05/05/2024 Encounter Details Date Type Department Care Team ([facility] st Contact Info) Description 05/05/2024 Telephone [facility] MEDICINE [address] [place] [address] Kristal Cheek ANP [address] [place] [address] Med Refill Social History Tobacco Use Types [...] 50 MG tablet To be sent to: [facility] - [place], [place] - [address] [place] [address] documented in this encounter Plan of Treatment Not on file documented as of this encounter Visit Diagnoses Not on filedocumented in this encounter Care Teams Oiler And Greaser Relationship Specialty Start Date End Date Kristal Cheek ANP [address] [facility] [place] [address] PCP - General Family Medicine 10/26/20 documented as of this encounter
--- OUTSIDE RECORDS SUMMARY | 2025-01-15 08:34 | XMS_ITS | Encounter Summary ---
Author Organization [employer] Address [address] [place] [address] Care Team Providers Care Coal Hauler Name Role Phone Kristal Cheek Primary Care Provider [phone] Reason for Visit * Reason Onset Date Comments Med Refill 04/21/2024 Encounter Details Date Type Department Care Team ([facility] st Contact Info) Description 04/21/2024 Telephone [facility] MEDICINE 230 [place] [address] Kristal Cheek ANP [address] [place] [address] Med Refill Social History Tobacco Use Types [...] 50 MG tablet To be sent to: [facility] - [place], [place] - [address] Pt also stated per insurance medication can be filled for a month. documented in this encounter Plan of Treatment Not on file documented as of this encounter Visit Diagnoses Not on filedocumented in this encounter Care Teams Coal Hauler Relationship Specialty Start Date End Date Kristal Cheek ANP [address] [place] [address] PCP - General Family Medicine 10/26/20 documented as of this encounter
--- OUTSIDE RECORDS SUMMARY | 2025-01-15 08:34 | XMS_ITS | Encounter Summary ---
Author Organization [employer] Address [address] [place] [address] Care Team Providers Care Poacher Wringer Operator Name Role Phone Kristal Cheek Primary Care Provider [phone] Reason for Visit * Reason Comments Med Refill Encounter Details Date Type Department Care Team (Late st Contact Info) Description 05/30/[address] [facility] PEDS [address] [place] [address] Kristal Cheek ANP [address] [place] [address] Chronic bilateral low back pain with right-sided [...] sciatica documented in this encounter Care Teams Poacher Wringer Operator Relationship Specialty Start Date End Date Kristal Cheek ANP [address] [place] [address] PCP - General Family Medicine 10/26/20 documented as of this encounter
--- OUTSIDE RECORDS SUMMARY | 2025-01-15 08:34 | XMS_ITS | Encounter Summary ---
Author Organization [employer] Address [address] [place] [address] Care Team Providers Care Telecommunications Repairer Name Role Phone Kristal Cheek Primary Care Provider [phone] Reason for Visit * Reason Onset Date Comments Med Refill 10/03/2024 Durable Medical Equipment 10/03/2024 ANAHI SALAS Request: Tramadol Encounter Details Date Type Department Care Team ([facility] st Contact Info) Description 10/03/2024 Refill [facility] PEDS [address] [place], [place] [phone] Kristal Cheek ANP [address] [place] [address] Chronic bilateral low back pain with right-sided [...] 11:27 AM EST PA for Tramadol from [facility] placed on PCP desk for signature. documented in this encounter Plan of Treatment Not on file documented as of this encounter Visit Diagnoses Diagnosis Chronic bilateral low back pain with right-sided sciatica documented in this encounter Additional Health Concerns Assessment Noted Time PHQ-9 Depression Total Score: 0 08/25/20 24 12:04 PM EST documented as of this encounter Care Teams Telecommunications Repairer Relationship Specialty Start Date End Date Kristal Cheek ANP [address] [place] [address] PCP - General Family Medicine 10/26/20 documented as of this encounter
--- OUTSIDE RECORDS SUMMARY | 2025-01-15 08:34 | XMS_ITS | Encounter Summary ---
Author Organization [employer] Address [address] [place] [address] Care Team Providers Care Mechanical Adjuster Name Role Phone Kristal Cheek Primary Care Provider [phone] Reason for Visit * Reason Onset Date Comments Med Refill 08/25/2024 Encounter Details Date Type Department Care Team ([facility] st Contact Info) Description 08/25/2024 Refill [facility] MEDICINE [address] [place] [address] Kristal Cheek ANP [address] [place] [address] Social History Tobacco Use Types Packs/Day Years [...] as of this encounter Care Teams Mechanical Adjuster Relationship Specialty Start Date End Date Kristal Cheek ANP [address] [place] [id number] PCP - General Family Medicine 10/26/20 documented as of this encounter
--- OUTSIDE RECORDS SUMMARY | 2025-01-15 08:34 | XMS_ITS | Encounter Summary ---
Author Organization [employer] Address [address] [place] [address] Care Team Providers Care Environmental Lead Name Role Phone Kristal Cheek Primary Care Provider [phone] Reason for Visit * Reason Comments Med Refill Encounter Details Date Type Department Care Team ([facility] st Contact Info) Description 11/03/2022 Refill [facility] MED & PEDS [address] [place] [address] Kristal Cheek ANP [address] [place] [address] Social History Tobacco Use Types Packs/Day Years [...] on filedocumented in this encounter Care Teams Environmental Lead Relationship Specialty Start Date End Date Kristal Cheek ANP [address] [place] [address] PCP - General Family Medicine 10/26/20 documented as of this encounter
--- OUTSIDE RECORDS SUMMARY | 2025-01-15 08:34 | XMS_ITS | Encounter Summary ---
Author Organization [employer] Address [address] [place] [address] Care Team Providers Care Roll Hauler Name Role Phone Kristal Cheek Primary Care Provider [phone] Reason for Visit * Reason Comments Med Refill Encounter Details Date Type Department Care Team (Late st Contact Info) Description 01/02/2023 Refill [facility]S [address] [place] [address] Kristal Cheek ANP [address] [place] [address] Pain Social History Tobacco Use Types Packs/Day [...] pain documented in this encounter Care Teams Roll Hauler Relationship Specialty Start Date End Date Kristal Cheek ANP [address] [place] [address] PCP - General Family Medicine 10/26/20 documented as of this encounter
--- OUTSIDE RECORDS SUMMARY | 2025-01-15 08:34 | XMS_ITS | Clinical Summary ---
Author Organization [employer] Address [address] [place] [address] Care Team Providers Care Career Manager Name Role Phone Kristal Cheek YVONNE Primary Care Provider [phone] Allergies No known active allergies Medications Blood Pressure kitIndications:B enign essential hypertension 1 kit in the morning. 1 kit 06/25/20 Active Blood Pressure Monitor misc USE TO CHECK BLOOD PRESSURE IN THE MORNING 06/25/20 23 Active ibuprofen 800 MG tablet Take 400 mg by mouth every 6 (six) hours if needed for mild pain. Active lisinopril-hydro CHLOROthiazide 20-12.5 MG tabletIndication s:Hypertensive urgency TAKE 1 TABLET BY MOUTH EVERY MORNING 90 tablet 1 08/11/20 24 Active traMADol (Ultram) 50 MG tabletIndication s:Chronic bilateral low back pain with right-sided sciatica TAKE 1 TABLET BY MOUTH EVERY 8 HOURS NEEDED FOR SEVERE PAIN 84 tablet 11/11/19 25 025 Discontinued(Re order (will not trigger notification to Pharmacy)) traMADol (Ultram) 50 MG tabletIndication s:Chronic bilateral low back pain with right-sided sciatica Take 1 tablet (50 mg) by mouth every 8 (eight) hours if needed for severe pain for up to 7 days. 21 tablet 12/18/19 25 025 Hospital, Clinic, or Other Facility Administered Medication Ordered Dose Route Frequency Start Date End Date Status cloNIDine (Catapres) tablet 0.1 mgIndications:Hypertensive urgency 0.1 mg PO Once 12/17/2024 12/17/2024 Ended Active Problems Problem Noted Date Diagnosed Date Hypertensive urgency 12/17/2024 Assessment & Plan (12/17/2024 3:08 PM EDT): Initial BP 180's systolic, upon rechecking went down to 170's. Given short dose of 0.1 mg Clonidine.Rechecked BP after around 10 minutes and BP improved to 158/98. -discuss avoiding NyQuil and taking cold/flu medications specifically tailoring to high blood pressure. -Discussed taking BP medication tonight and monitoring BP's. Goal <140/90 Gastroenteritis 12/17/2024 Assessment & Plan (12/17/2024 3:02 PM EDT): Covid, strep and flu negative. Likely viral gastroenteritis. -no evidence of dehydration on exam. -no evidence of acute abdomen. -supportive care with fluids. [facility] (current) use of opiate analgesic 08/10 Overview [...] pain 01/20/2016 06/25/2023 Morbid obesity 01/20/2016 06/25/2023 Resolved Problems Problem Noted Date Diagnosed Date Resolved Date Gastroenteritis 12/17/2024 12/17/2024 Encounters Date Type Department Care Team Description 12/17/2024 2:40 PM EDT Office Visit [facility] [address] [place] [address] Suzi Orta MD Hypertensive urgency (Primary Dx); Gastroenteritis 12/17/2024 Refill [facility] [address] [place] [address] Kristal Cheek ANP Chronic bilateral low back pain with right-sided sciatica 12/17/2024 Telephone [facility] [address] [place] [address] Kristal Cheek ANP Nurse Triage 12/09/2024 Telephone [facility] [address] [place] [address] Shantal Moncada, GABRIELE senior ecologist 11/10/2024 Refill [facility] [address] [place] [address] Kristal Cheek ANP Chronic bilateral low back pain with right-sided sciatica 10/29/2024 9:00 AM EST Clinical Support [facility] [address] [place] [address] Shantal Moncada, casing tester bilateral low back pain with right-sided sciatica 10/29/2024 Telephone [facility] [address] [place] [address] Shantal Moncada, GABRIELE 10/29/2024 Travel from Last 3 Months Immunizations Name Administration Dates Next Due DTP 08/09/1999, 3,09/27/1990,1988,1988 Hep B, Adolescent or Pediatric 02/11/2001,1999,06/19/2000 Hib (PRP-T) 03/06/1990 Influenza injectable quadriv alent IIV4 with preservative 08/10/2016 Influenza injectable quadriv alent preservative free 07/14/2019 Influenza, IIV3, injectable 05/17/2011,1 ,07/19/2005,1999 Influenza, Split (incl. charity fied surface antigen) 10/17/2012,07/02/2012,08/20/2000 MMR 06/19/2000,01/02/1990 OPV, Trivalent 06/30/1993, 0,05/10/1989,1988 TD (adult), 2 Lf tetanus [...] Sign Reading Time Taken Comments Blood Pressure 158/98 12/17/2024 3:22 PM EDT Pulse 53 12/17/2024 2:42 PM EDT Temperature 37.2 ??C (98.9 ??F) 12/17/2024 2:42 PM ED T Respiratory Rate 20 12/17/2024 2:42 PM EDT Oxygen Saturation 98% 12/17/2024 2:42 PM EDT Inhaled Oxygen Concentration - - Weight 111 kg (245 lb) 12/17/2024 2:42 PM EDT Height 185.4 cm (6' 1 ) 06/26/2024 9:39 AM EDT Body Mass Index 32.32 06/26/2024 9:39 AM EDT Plan of Treatment Health Maintenance Due Date Last Done Comments [...] Use Screening 06/26/2025 06/26/2024 COVID-19 Vaccine ( season) 2025 Postponed from 05/11/2024 (Patient Refused) [...] Name Priority Date/Time Associated Diagnosis Comments POCT INFLUENZA B Routine 12/17/2024 3:00 PM EDT Gastroenteritis POCT INFLUENZA A Routine 12/17/2024 3:00 PM EDT Gastroenteritis POCT RAPID COVID ANTIGEN Routine 12/17/2024 2:59 PM EDT Gastroenteritis POCT RAPID STREP A Routine 12/17/2024 2: 58 PM EDT Gastroenteritis POCT MIGUELITO-14 URINE DRUG SCREEN Routine 10/29/2024 9:11 AM EST Chronic bilateral low back pain with right-sided sciatica LIPID PANEL, STANDARD Routine 10/13/2024 12:13 PM EST HEPATITIS C ANTIBODY ([place] [facility]) Routine 03/31/2024 HIV ANTIBODY/ANTIGEN ([place] [facility]) Routine 03/31/2024 BITEWING - SINGLE RADIOGRAPHIC IMAGE Routine 07/17/2017 12:00 AM EST from Last 3 Months or Most Recently Relevant to Health Maintenance Results * POCT Influenza B manually resulted (12/17/2024 3:00 PM EDT) Rapid Influenza B Ag Negative Negative, Indeterminate QC Media Lot # [id number] Lot# Expiration Date [id number] Swab 12/17/2024 3:00 PM EDT Suzi Orta MD POINT OF CARE TEST ENTER/E DIT ORDERABLES Final Result * POCT Influenza A manually resulted (12/17/2024 3:00 PM EDT) [facility] Rapid Influenza A Ag Negative Negative, Indeterminate QC Media Lot # [id number] Lot# Expiration Date [id number] Swab Nasopharyngeal structure / Unknown 12/17/2024 3:00 PM EDT Suzi Orta MD POINT OF CARE TEST ENTER/E DIT ORDERABLES Final Result * POCT Rapid COVID Ag (12/17/2024 2:59 PM EDT) [facility] Rapid COVID Ag Negative QC Media Lot # [id number] Lot# Expiration Date [id number] Swab 12/17/2024 2:59 PM EDT Suzi Orta MD POINT OF CARE TEST ENTER/E DIT ORDERABLES Final Result * POCT rapid strep A manually resulted (12/17/2024 2:58 PM EDT) [facility] Rapid Strep A Screen Negative Negative, None Detected QC Media Lot # [id number] Lot# Expiration Date [id number] Swab 12/17/2024 2:58 PM EDT Suzi Orta MD POINT OF CARE TEST ENTER/E DIT ORDERABLES Final Result * POCT MIGUELITO-14 Urine Drug Screen (10/29/2024 9:11 AM EST) Urine Urine specimen obtained by clean catch procedure / Unknown 10/29/2024 9:11 AM EST Narrative Shantal Moncada RN - 10/29/2024 9:11 AM EST negative AMP, BAR, BUP, BZO, TANNER, FTY, MDMA, MET, MOP, MTD, OXY, PCP, TCA, THC. Lot# [id number] Exp: 04-29-26 us Kristal RUSSELL POINT OF CARE TEST ENTER/EDIT OR DERABLES Final Result * Lipid Panel, Standard (10/13/2024 12:13 PM EST) Triglycerides 54 <150 mg/dL [facility] Comment:Desirable Triglyceri de: less than 150 mg/dLBorderline High Triglyceride 150-199 mg/dLHigh Triglyceride: 200-499 mg/dLVery High Triglyceride: greater than or equal to 5OO mg/dL Cholesterol 139 <200 mg/dL [facility] Comment:Desirable Cholestero l: less than 200 mg/dLBorderline High Cholesterol: 200-239 mg/dLHigh Cholesterol: greater than 239 mg/dL LDL Cholesterol Calculated 84 <100 mg/dL [facility] Comment:Desirable LDL: less than 100 mg/dLNear Optimal/Above Optimal LDL: 110- 129 mg/dLBorderline High LDL: 130-159 mg/dLHigh LDL: 160-189 mg/dLVery High LDL: greater than or equal to 190 mg/dL HDL Cholesterol 45 >40 mg/dL [facility] Comment:Desirable HDL: great er than 40 mg/dL Note: This HDL assay may give artificially low results in patients with liver disease. 10/13/2024 12:1 3 PM EST 10/13/2024 12:13 PM EST us Generic External Data Provider LAB BLOOD ORDERAB LES Final Result [facility] [address] [place] [phone] * Hepatitis C Antibody ([facility]) (03/31/2024) Hepatitis C Ab Nonreactive Blood 03/31/2024 us Historical Provider LAB BLOOD ORDERABLES Anastasia l Result * HIV Ab/Ag ([facility]) (03/31/2024) HIV Ag/Ab Nonreactive Blood 03/31/2024 us Historical Provider LAB BLOOD ORDERABLES Anastasia l Result from Last 3 Months or Most Recently Relevant to Health Maintenance Insurance [facility] [address] [place] [address] [place] [address] Care Teams Career Manager Relationship Specialty Start Date End Date Kristal Cheek ANP [address] [place] [address] PCP - General Family Medicine 10/26/20
== END 2025-01-15 09:02 | disposition home or self-care (01) ==
LOC: HO.HBS 08:16
PROVIDERS: PCP Nurse Practitioner Primary Care; Visit Provider Physician Assistant Surgical
DX: E66.09 Other obesity due to excess calories (principal); Z68.32 Body mass index [BMI] 32.0-32.9, adult; Z90.3 Acquired absence of stomach [part of]; Z98.84 Bariatric surgery status
CPT/HCPCS: 99214

== ENCOUNTER → 2025-01-15 08:15 | Outpatient (BNVA) | payer OTHER, SELFPAY | PROVIDERS: PCP Nurse Practitioner Primary Care; Visit Provider Physician Assistant Surgical ==